=== PATIENT | male | born 1955 | race Caucasian/White ===

== ENCOUNTER → 2018-06-07 07:00 | Outpatient (CLI) | payer OTHER, SELFPAY ==
[2018-06-07 09:05] LABS: Hematocrit 45.2 % (40-54); Hemoglobin 15.9 g/dl (13.0-16.5); Mean Corp Hgb Conc 35.2 g/gl (32-36); Mean Corpuscular Hgb 32.4 pg (27.0-32.0); Mean Corpuscular Volume 92.1 fL (80-94); Mean Platelet Vol. 8.6 fl (6.2-12.0); Platelet Count 314 K/mm3 (150-450); RBC Distribution Width CV 12.6 % (11.6-14.6); RBC Distribution Width SD 42.3 fl (35.1-43.9); Red Blood Count 4.91 M/mm3 (4.6-6.2); White Blood Count 9.1 K/mm3 (4.4-11.0)
[2018-06-07 09:06] LABS: Scan Indicated on CBC? Y/N NO
[2018-06-07 09:24] LABS: Hemoglobin A1c 5.9 % (4.2-6.3)
[2018-06-07 09:34] LABS: Anion Gap 10 (5-15); BUN 22 mg/dL (7-18); Calcium,Total 9.4 mg/dL (8.5-10.1); Chloride 106 mmol/L (98-107); EST Glomerular Filtration Rate 72 mL/min (>60); Est Glom Filt Rate - Afr Amer 88 mL/min (>60); Glucose 145 mg/dL (74-106); Potassium 4.3 mmol/L (3.5-5.1); Sodium Level 139 mmol/L (136-145)
--- OUTSIDE RECORDS SUMMARY | 2018-08-01 18:16 | XMS RPT_ITS ---
:1955 Author Organization OHIP Care Team Providers Name Role Phone HE CASTRO Attending Unavailable MARIO WOLFE Referring Unavailable HE CASTRO Referring Unavailable HE CASTRO Attending Unavailable HE CASTRO Referring Unavailable MARIO WOLFE Referring Unavailable HILDA BROWN (GLORIA) Attending Unavailable MARIO WOLFE Referring Unavailable HILDA BROWN (GLORIA) Referring Unavailable MARIO WOLFE Attending Unavailable MARIO WOLFE Referring Unavailable MARIO WOLFE Attending Unavailable MARIO WOLFE Referring Unavailable MARIO WOLFE Referring Unavailable Atilio Lindsay Attending Unavailable Atilio Lindsay Referring Unavailable Mario Wolfe Primary Care Unavailable Kasie Marcos Attending Unavailable Kasie Marcos Referring Unavailable Mario Wolfe Primary Care Unavailable Atilio Lindsay Attending Unavailable Atilio Lindsay Referring Unavailable Mario Wolfe Primary Care Unavailable PROBLEMS PROBLEMS DATE TYPE CONDITION / CODE ATTENDING STATUS SOURCE 06/10/2018 Active Encounter for other NA Active [facility] Main examination / [place] Z01.818(ICD-10) Repository 06/07/2018 Unknown Z01.810 - Encounter Kasie Marcos Active [facility] for preprocedural [facility] examination / Repository Z01.810(ICD-10) 03/08/2018 Active Encounter for NA Active [facility] screening for Clinic Main malignant neoplasm [place] of prostate / Repository Z12.5(ICD-10) 12/01/2015 Active Type 2 diabetes NA Active [facility] mellitus without Clinic Main complications / [place] E11.9(ICD-10) Repository 11/25/2013 Active Hyperlipidemia, NA Active [facility] unspecified / Clinic Main E78.5(ICD-10) [place] Repository 10/09/2017 Active Unspecified disorder NA Active [facility] of synovium and Clinic Main tendon, left thigh / [place] M67.952(ICD-10) Repository 10/09/2017 Active Unknown / HE CASTRO Active [facility] UNK(Unknown) Clinic Main [place] Repository PROCEDURES PROCEDURES No Procedure Records FoundRESULTS RESULTS TOTAL HIP REPLACEMENT Observed: 06/17/2018 Status: F Source: [place] 9:00 AM [facility] REPOSITORY Patient: SRINI JUNIOR : 1955 (62/M) Acct Num: [id number] Phys: Neftali DEAN,Atilio Unit Num: [id number] Loc: LABSPEC Specimen: [id number] Received: 06/17/181514 Spec Type: TOTAL HIP TISSUES 1 TISSUES: Hip, NOS GROSS DESCRIPTION Received is one container designated bone and soft tissue, left femoral head. The specimen consists of a domingo femoral head with portion of femoral neck. The femoral head measures 4.5 x 4.5 x 4.5 cm and the femoral neck measures up to 2 cm in length. The articular surface displays prominent osteophyte formation, eburnation and bone erosion. Also present in the specimen container are multiple irregular fragments of bone reamings and pink-yellow soft tissue measuring in aggregate 10 x 10 x 4 cm. [employer] Hel[employer] sections are submitted in two cassettes as follows: 1 - soft tissue, 2 - bone after decalcification. / YARITZA: yassine 06/17/18 TC:5 CPT: 62899, 49533 HEADER OPERATION: Left total hip arthroplasty PRE-OP DIAGNOSIS: Primary osteoarthritis left hip TISSUE SUBMITTED: Bone left hip MICROSCOPIC DESCRIPTION Slides are reviewed. MICROSCOPIC DIAGNOSIS Bone and soft tissue of left hip, total hip resection: Degenerative joint disease. Trilineage hematopoiesis with no pathologic change. AM:yassine 12/17/18 Signed Yossi Baird DO 06/23/18 <signature on file> Performed By: #### PHIP #### [facility] [address] [place], [address] CHEST PA AND LATERAL Observed: 06/12/2018 Status: F Source: [place] 5:24 PM [facility] REPOSITORY [facility] [address] [place] [address] Chest PA and Lateral MR#: [id number] Acct: [id number] Name: SRINI JUNIOR Rep #: [id number] : 1955 M 62 From: Castillo Nieto MD PCP: Mario Wolfe MD Status: REG CLI Study: Chest PA and Lateral Date of Exam: 06/12/18 Exam# [id number] Ordering Dr: Atilio Lindsay MD STUDY: X-RAY CHEST REASON FOR EXAM: Male, 62 years old. Preoperative evaluation. TECHNIQUE: PA and lateral views of the chest. COMPARISON: Comparison is made with prior study dated October 09, 2004. FINDINGS: Hyperinflation. Scattered calcified granulomas. No acute abnormality is seen. There is no demonstrated pleural abnormality. Normal size heart. Normal mediastinum and jackson. Normal visualized pulmonary arteries. There is atherosclerotic tortuosity of the aortic arch and descending thoracic aorta. There are diffuse degenerative changes of the visualized thoracic spine. Normal visualized ribs, clavicles, and shoulders. There is no demonstrated abnormality of the visualized soft tissue structures of the upper abdomen. RAD/Chest PA and Lateral IMPRESSION: Hyperinflation. No acute abnormality is seen. Electronically Signed: Castillo Nieto MD at 14:21 EST Tel [phone], Service support , CC: Mario Wolfe MD; Atilio Lindsay MD Long Chain Beamer: Signed PROGRESS Observed: 06/10/2018 Status: COMPLETED Source: [place] 4:00 PM [facility] [place] REPOSITORY HNO ID: [id number] Author: Mario Wolfe Service: (none) Author Type: Physician Type: Progress Notes Filed: 06/10/2018 5:02 PM Note Text: Chief Complaint Patient presents with: Pre-Op Exam: hip replacement HPI Srini Junior is a 62 year old male who presents here today for Above Complaints.. Patient with left hip Arthritis and is scheduled to have left hip replacement per Dr. Lindsay [facility] on 06/17/2018. Patient with Hx of COPD, DM 2, dyslipidemia. Developed a cold sore just under a week ago on the right upper lip. Taking OTC abreva. Past medical history, appointments, medications, allergies reviewed. Previous Medical History PAST MEDICAL HISTORY Diagnosis Date - Anxiety and depression 06/18/2017 - Carpal tunnel syndrome, bilateral 09/08/2014 - COPD (chronic obstructive pulmonary disease) ([facility]) 11/25/2013 - Diabetes ([facility]) - DM type 2 (diabetes mellitus, type 2) ([facility]) 11/26/2013 - Dyslipidemia 11/25/2013 - Elevated fasting blood sugar 11/25/2013 - Lymphoma ([facility]) 11/25/2013 - Pain of left hip joint 09/24/2016 Previous Surgical History PAST SURGICAL HISTORY Procedure Laterality Date - *STRESS TEST PC 02/26/2017 normal. - COLONOSCOP W/ OR W/O [facility] [place] SPEC 06/18/14 colonoscopy - PAST SURGICAL HISTORY OF mass in left lwer leg Dx as lymphoma (Tx with radiation) - TONSILLECTOMY HX Family History FAMILY HISTORY Problem Relation Age of Onset - Alzheimer's Disease Mother - Coronary Artery Disease Father late 60's Patient Allergies ALLERGIES No Known Allergies Current Medications Current Outpatient Prescriptions on File Prior to Visit: sertraline (ZOLOFT) 100 mg tablet Take 1 tablet by mouth once daily. niacin ER (NIASPAN) 1,000 mg CR tablet Take 2 tablets by mouth daily at bedtime. metFORMIN (GLUCOPHAGE) 500 mg tablet Take 2 tablets by mouth twice daily with meals. fenofibrate nanocrystallized (TRICOR) 145 mg tablet Take 1 tablet by mouth once daily. FLOVENT DISKUS 100 mcg/actuation dsdv USE 1 INHALATION INSTRUCTED TWICE DAILY atorvastatin (LIPITOR) 20 mg tablet TAKE 1 TABLET DAILY AT BEDTIME FOR CHOLESTEROL lisinopril (ZESTRIL, PRINIVIL) 10 mg tablet TAKE 1 TABLET DAILY lancets (FREESTYLE LANCETS) 28 gauge misc Test blood sugar once a day, Dx E11.9 no insulin blood sugar diagnostic (FREESTYLE LITE STRIPS) test strip Test blood sugar(s) one times daily. Dx: 250.02. Insulin: No ipratropium-albuterol (COMBIVENT RESPIMAT) 20-100 mcg/actuation mist Inhale 1 Inhalation as instructed three times daily. Prosser-3 Fatty Acids (FISH OIL) 500 mg cap Take 1 capsule by mouth once daily. aspirin 325 mg tablet Take 325 mg by mouth once daily. meloxicam (MOBIC) 15 mg tablet TAKE 1 TABLET DAILY albuterol HFA (PROAIR HFA) 90 mcg/actuation inhaler Inhale 2 Puffs as instructed every 6 hours as needed. COMPOUNDED PRESCRIPTION Wrist cock-up splintsOne for right and left handsDx: Carpal Tunnel (354.0) No current facility-administered medications on file prior to visit. Social History Social History Marital status: Spouse name: Years of education: Number of children: Social History Main Topics Smoking status: Former Smoker Packs/day: 1.50 Years: 0.00 Quit date: 11/05/2006 Smokeless tobacco: Never Used Alcohol use: Yes Comment: seldom Drug use: No Review of Symptoms REVIEW OF SYSTEMS GENERAL: No weight loss, malaise or fevers HEENT: Negative for frequent or significant headaches, significant change in vision, significant vision problems, significant ear problems or hearing loss, nasal discharge, or nose bleeds, sore throat, difficulty swallowing, mouth lesions, hoarseness NECK: Negative for lumps, goiter, pain and significant neck swelling RESPIRATORY: Negative for cough, hemoptysis, wheezing, COPD, dyspnea or shortness of breath CARDIOVASCULAR: Negative for chest pain, leg swelling, hypertension, CHF or palpitations GI: No nausea, vomiting, or diarrhea and no abdominal pain : No history of dysuria, frequency or blood MUSCULOSKELETAL: left hip pain SKIN: See HPI HEMATOLOGY/LYMPHOLOGY: Negative for prolonged bleeding, bruising easily or swollen nodes ENDOCRINE: Negative for cold or heat intolerance, polyuria, polydipsia and goiter NEURO: No history of headaches, syncope, paralysis, seizures or tremors EXAM: BP 122/76 Pulse 68 Resp 16 Wt 111.1 kg (245 lb) BMI 38.37 kg/m? General Appearance: Well appearing, alert, in no acute distress, well-hydrated, well nourished. and Obese. Skin: Skin color, texture, turgor normal, no suspicious lesions. Has a cold sore out break on the right upper lip. Head: Normocephalic, no masses, lesions, tenderness or abnormalities. Eyes: Anicteric sclera. Pupils are equally round and reactive to light. Extraocular movements are intact. . Ears: External ears normal, canals clear. Nose/Sinuses: Nares normal, septum midline, mucosa normal, no drainage or sinus tenderness. Oropharynx: Lips, mucosa, and tongue normal, teeth and gums normal, oropharynx normal. Neck: Supple, no adenopathy; thyroid symmetric, normal size, no bruits. Lungs: lungs clear to auscultation. No wheezing, rhonchi, rales. Heart: RRR without murmur, gallop, or rubs. No ectopy. Abdomen: Normal abdominal exam, Abdomen soft, non-tender. Bowel sounds normal. No masses, organomegaly. Extremities: No deformities, edema, skin discoloration. Musculoskeletal: Muscular strength intact. Has notable limp with ambulating due to left hip pain.. Peripheral Pulses: Normal. Neurologic: Gait normal. Reflexes normal and symmetric. Sensation to light touch and crainal nerves 2-12 intact.. Health Maintenance List STATIN MED ADHERENCE due on 07/08/2018 DIABETES MED ADHERENCE due on 07/08/2018 HBA1C due on 09/05/2018 TWO PNEUMOVAX 5 YEARS APART PRIOR TO AGE 65(2) due on 12/14/2018 URINE ALBUMIN:CREATININE RATIO due on 03/08/2019 LDL CHOLESTEROL due on 03/08/2019 DIABETIC FOOT EXAM due on 03/12/2019 ANNUAL PCP TEAM CHRONIC DISEASE VISIT due on 03/12/2019 DILATED RETINAL EXAM due on 03/24/2019 DTAP,TDAP,TD(2 - Td) due on 11/26/2023 COLORECTAL CANCER SCREENING,SEE MODIFIER due on 06/18/2024 PROSTATE CANCER SCREENING DISCUSSION Completed ADULT PREVNAR-13 Completed INFLUENZA Completed HEPATITIS C SCREENING Completed Data reviewed In office EKG showed Sinus tach (repeat pulse in office was 98 patient in pain with right hip) No acute ST and T wave changes and no new findings when compared to EKG from 02/18/2017 A/P ASSESSMENT/PLAN: 1. Pre-operative clearance - ICD9: V72.84, ICD10: Z01.818 (primary diagnosis) - ECG COMPLETE W INTERPRETATION: See above Patient procedure is a moderate risk procedure. His cardiac risk index is low at 0.4% and EKG shows no acute issues. Based on this and the Pre-operative Clearance Algorithm he does not need additional cardiac w/u and is cleared for surgery on 06/17/2018 2. Pain of left hip joint - ICD9: 719.45, ICD10: M25.552 - Scheduled for surgery 06/17/[address] Neftali Tian. Will fax Medical clearance and copy of EKG to there office. 3. Type 2 diabetes mellitus without complication, without long-term current use of insulin (HCC) - ICD9: 250.00, ICD10: E11.9 - No changes in current Tx. - ECG COMPLETE W INTERPRETATION 4. Dyslipidemia - ICD9: 272.4, ICD10: E78.5 - No new changes. 5. Herpes - ICD9: 054.9, ICD10: B00.9 Treat with - ACYCLOVIR 400 MG TABLET three times a day for 5 days Signed Prescriptions Disp Refills acyclovir (ZOVIRAX) 400 mg tablet 15 tablet 0 Sig: Take 1 tablet by mouth three times daily for 5 days. F/u next routine Mario Wolfe MD ECG COMPLETE W Observed: 06/10/2018 Status: F Source: [place] INTERPRETATION 3:48 PM [facility] [place] REPOSITORY NAME : SRINI JUNIOR PID : [id number] : 1955 Gender : Male Race : ORD : [id number] Procedure Date : Jun 10 2018 15:48:46 Edit Date : Jun 14 2018 12:57:43 Diagnosis:SINUS TACHYCARDIA OTHERWISE NORMAL ECG Confirmed by MARI ALDANA D.O. ([id number]) on 06/14/2018 12:57:33 PM Ventricular Rate : 106 BPM Atrial Rate : 106 BPM P-R Interval : 154 ms QRS Duration : 92 ms Q-T Interval : 328 ms QTC Calculation(Bezet) : 435 ms P [place] : 37 degrees R [place] : 5 degrees T [place] : 40 degrees Test Reason : Location : 185 : [facility] Overread By : MARI ALDANA D.O. Edited By : MARI ALDANA D.O. Referred By : MARIO WOLFE Acquired by : NEREIDA ARTEAGA Observed: 06/10/2018 Status: COMPLETED Source: [place] 3:40 PM [facility] REPOSITORY Office Visit (FAMPWS) SRINI JUNIOR ([id number]) 1955 M Date Time Provider Department 06/10/18 3:40 PM [facility] During your visit today, we recorded the following information about you: Pulse Respiration Blood pressure Weight 68/minute 16/minute 122/76 111.1 kg Mario Wolfe MD 06/10/2018 5:02 PM Signed Chief Complaint Patient presents with: Pre-Op Exam: hip replacement HPI Srini Junior is a 62 year old male who presents here today for Above Complaints.. Patient with left hip Arthritis and is scheduled to have left hip replacement per Dr. [facility] on 06/17/2018. Patient with Hx of COPD, DM 2, dyslipidemia. Developed a cold sore just under a week ago on the right upper lip. Taking OTC abreva. Past medical history, appointments, medications, allergies reviewed. Previous Medical History PAST MEDICAL HISTORY Diagnosis Date - Anxiety and depression 06/18/2017 - Carpal tunnel syndrome, bilateral 09/08/2014 - COPD (chronic obstructive pulmonary disease) ([facility]) 11/25/2013 - Diabetes ([facility]) - DM type 2 (diabetes mellitus, type 2) ([facility]) 11/26/2013 - Dyslipidemia 11/25/2013 - Elevated fasting blood sugar 11/25/2013 - Lymphoma ([facility]) 11/25/2013 - Pain of left hip joint 09/24/2016 Previous Surgical History PAST SURGICAL HISTORY Procedure Laterality Date - *STRESS TEST PC 02/26/2017 normal. - COLONOSCOP W/ OR W/O [facility] SPEC 06/18/14 colonoscopy - PAST SURGICAL HISTORY OF mass in left lwer leg Dx as lymphoma (Tx with radiation) - TONSILLECTOMY HX Family History FAMILY HISTORY Problem Relation Age of Onset - Alzheimer's Disease Mother - Coronary Artery Disease Father late 60's Patient Allergies ALLERGIES No Known Allergies Current Medications Current Outpatient Prescriptions on File Prior to Visit: sertraline (ZOLOFT) 100 mg tablet Take 1 tablet by mouth once daily. niacin ER (NIASPAN) 1,000 mg CR tablet Take 2 tablets by mouth daily at bedtime. metFORMIN (GLUCOPHAGE) 500 mg tablet Take 2 tablets by mouth twice daily with meals. fenofibrate nanocrystallized (TRICOR) 145 mg tablet Take 1 tablet by mouth once daily. FLOVENT DISKUS 100 mcg/actuation dsdv USE 1 INHALATION INSTRUCTED TWICE DAILY atorvastatin (LIPITOR) 20 mg tablet TAKE 1 TABLET DAILY AT BEDTIME FOR CHOLESTEROL lisinopril (ZESTRIL, PRINIVIL) 10 mg tablet TAKE 1 TABLET DAILY lancets (FREESTYLE LANCETS) 28 gauge misc Test blood sugar once a day, Dx E11.9 no insulin blood sugar diagnostic (FREESTYLE LITE STRIPS) test strip Test blood sugar(s) one times daily. Dx: 250.02. Insulin: No ipratropium-albuterol (COMBIVENT RESPIMAT) 20-100 mcg/actuation mist Inhale 1 Inhalation as instructed three times daily. Prosser-3 Fatty Acids (FISH OIL) 500 mg cap Take 1 capsule by mouth once daily. aspirin 325 mg tablet Take 325 mg by mouth once daily. meloxicam (MOBIC) 15 mg tablet TAKE 1 TABLET DAILY albuterol HFA (PROAIR HFA) 90 mcg/actuation inhaler Inhale 2 Puffs as instructed every 6 hours as needed. COMPOUNDED PRESCRIPTION Wrist cock-up splintsOne for right and left handsDx: Carpal Tunnel (354.0) No current facility-administered medications on file prior to visit. Social History Social History Marital status: Spouse name: Years of education: Number of children: Social History Main Topics Smoking status: Former Smoker Packs/day: 1.50 Years: 0.00 Quit date: 11/05/2006 Smokeless tobacco: Never Used Alcohol use: Yes Comment: seldom Drug use: No Review of Symptoms REVIEW OF SYSTEMS GENERAL: No weight loss, malaise or fevers HEENT: Negative for frequent or significant headaches, significant change in vision, significant vision problems, significant ear problems or hearing loss, nasal discharge, or nose bleeds, sore throat, difficulty swallowing, mouth lesions, hoarseness NECK: Negative for lumps, goiter, pain and significant neck swelling RESPIRATORY: Negative for cough, hemoptysis, wheezing, COPD, dyspnea or shortness of breath CARDIOVASCULAR: Negative for chest pain, leg swelling, hypertension, CHF or palpitations GI: No nausea, vomiting, or diarrhea and no abdominal pain : No history of dysuria, frequency or blood MUSCULOSKELETAL: left hip pain SKIN: See HPI HEMATOLOGY/LYMPHOLOGY: Negative for prolonged bleeding, bruising easily or swollen nodes ENDOCRINE: Negative for cold or heat intolerance, polyuria, polydipsia and goiter NEURO: No history of headaches, syncope, paralysis, seizures or tremors EXAM: BP 122/76 Pulse 68 Resp 16 Wt 111.1 kg (245 lb) BMI 38.37 kg/m? General Appearance: Well appearing, alert, in no acute distress, well-hydrated, well nourished. and Obese. Skin: Skin color, texture, turgor normal, no suspicious lesions. Has a cold sore out break on the right upper lip. Head: Normocephalic, no masses, lesions, tenderness or abnormalities. Eyes: Anicteric sclera. Pupils are equally round and reactive to light. Extraocular movements are intact. . Ears: External ears normal, canals clear. Nose/Sinuses: Nares normal, septum midline, mucosa normal, no drainage or sinus tenderness. Oropharynx: Lips, mucosa, and tongue normal, teeth and gums normal, oropharynx normal. Neck: Supple, no adenopathy; thyroid symmetric, normal size, no bruits. Lungs: lungs clear to auscultation. No wheezing, rhonchi, rales. Heart: RRR without murmur, gallop, or rubs. No ectopy. Abdomen: Normal abdominal exam, Abdomen soft, non-tender. Bowel sounds normal. No masses, organomegaly. Extremities: No deformities, edema, skin discoloration. Musculoskeletal: Muscular strength intact. Has notable limp with ambulating due to left hip pain.. Peripheral Pulses: Normal. Neurologic: Gait normal. Reflexes normal and symmetric. Sensation to light touch and crainal nerves 2-12 intact.. Health Maintenance List STATIN MED ADHERENCE due on 07/08/2018 DIABETES MED ADHERENCE due on 07/08/2018 HBA1C due on 09/05/2018 TWO PNEUMOVAX 5 YEARS APART PRIOR TO AGE 65(2) due on 12/14/2018 URINE ALBUMIN:CREATININE RATIO due on 03/08/2019 LDL CHOLESTEROL due on 03/08/2019 DIABETIC FOOT EXAM due on 03/12/2019 ANNUAL PCP TEAM CHRONIC DISEASE VISIT due on 03/12/2019 DILATED RETINAL EXAM due on 03/24/2019 DTAP,TDAP,TD(2 - Td) due on 11/26/2023 COLORECTAL CANCER SCREENING,SEE MODIFIER due on 06/18/2024 PROSTATE CANCER SCREENING DISCUSSION Completed ADULT PREVNAR-13 Completed INFLUENZA Completed HEPATITIS C SCREENING Completed Data reviewed In office EKG showed Sinus tach (repeat pulse in office was 98 patient in pain with right hip) No acute ST and T wave changes and no new findings when compared to EKG from 02/18/2017 A/P ASSESSMENT/PLAN: 1. Pre-operative clearance - ICD9: V72.84, ICD10: Z01.818 (primary diagnosis) - ECG COMPLETE W INTERPRETATION: See above Patient procedure is a moderate risk procedure. His cardiac risk index is low at 0.4% and EKG shows no acute issues. Based on this and the Pre-operative Clearance Algorithm he does not need additional cardiac w/u and is cleared for surgery on 06/17/2018 2. Pain of left hip joint - ICD9: 719.45, ICD10: M25.552 - Scheduled for surgery 06/17/[address] Neftali Tian. Will fax Medical clearance and copy of EKG to there office. 3. Type 2 diabetes mellitus without complication, without long-term current use of insulin (HCC) - ICD9: 250.00, ICD10: E11.9 - No changes in current Tx. - ECG COMPLETE W INTERPRETATION 4. Dyslipidemia - ICD9: 272.4, ICD10: E78.5 - No new changes. 5. Herpes - ICD9: 054.9, ICD10: B00.9 Treat with - ACYCLOVIR 400 MG TABLET three times a day for 5 days Signed Prescriptions Disp Refills acyclovir (ZOVIRAX) 400 mg tablet 15 tablet 0 Sig: Take 1 tablet by mouth three times daily for 5 days. F/u next routine Mario Wolfe MD Referring Provider: MARIO WOLFE [[id number]] Allergies As of Date: 06/10/2018 (No Known Allergies) Date Reviewed: 06/10/2018 Reviewed by: Mario Wolfe - Fully Assessed Reason for Visit: Pre-Op Exam [87] Cmt: hip replacement Primary Visit Diagnosis:Pre-operative clearance [Z01.818] Other Visit Diagnoses:Pain of left hip joint [M25.552] Type 2 diabetes mellitus without complication, without long-term current use of insulin (HCC) [E11.9] Dyslipidemia [E78.5] Herpes [B00.9] Order(s):ECG COMPLETE W INTERPRETATION [ECG01] Order #: [id number] FUTURE acyclovir (ZOVIRAX) 400 mg tabletTake 1 tablet by mouth three times daily for 5 days.Disp: 15 tabletRfl: 0 Prescriptions as of 06/10/2018 Sig: SERTRALINE 100 MG TABLET Take 1 tablet by mouth once d* NIACIN ER 1,000 MG TABLET,EXT* Take 2 tablets by mouth daily* METFORMIN 500 MG TABLET Take 2 tablets by mouth twice* FENOFIBRATE NANOCRYSTALLIZED * Take 1 tablet by mouth once d* FLOVENT DISKUS 100 MCG/ACTUAT* USE 1 INHALATION INSTRUCTE* ATORVASTATIN 20 MG TABLET TAKE 1 TABLET DAILY AT BEDTIM* LISINOPRIL 10 MG TABLET TAKE 1 TABLET DAILY LANCETS 28 GAUGE Test blood sugar once a day, * BLOOD SUGAR DIAGNOSTIC STRIPS Test blood sugar(s) one times* IPRATROPIUM 20 MCG-ALBUTEROL * Inhale 1 Inhalation as instru* OMEGA-3 FATTY ACIDS 500 MG CA* Take 1 capsule by mouth once * ASPIRIN 325 MG TABLET Take 325 mg by mouth once julian* ACYCLOVIR 400 MG TABLET Take 1 tablet by mouth three * MELOXICAM 15 MG TABLET TAKE 1 TABLET DAILY ALBUTEROL SULFATE HFA 90 MCG/* Inhale 2 Puffs as instructed * COMPOUNDED PRESCRIPTION Wrist cock-up splints One * Problem List As Of Date 06/10/2018 Noted Resolved Dyslipidemia [E78.5] INVALID FOR* Diabetic eye exam (HCC) [Z01.00, E11.9] INVALID FOR* More... Well adult exam [Z00.00] INVALID FOR* More... Special screening for malignant neoplasms, colo*INVALID FOR*06/18/2014 Deviated nasal septum [J34.2] INVALID FOR* Carpal tunnel syndrome, bilateral [G56.03] INVALID FOR* Prostate cancer screening [Z12.5] INVALID FOR* Colon cancer screening [Z12.11] INVALID FOR* Type 2 diabetes mellitus without complication, *INVALID FOR* More... Elevated blood pressure reading without diagnos*INVALID FOR* Chronic obstructive pulmonary disease (HCC) [J4*INVALID FOR* Pain of left hip joint [M25.552] INVALID FOR* Ex-smoker [Z87.891] INVALID FOR* More... MCL (mantle cell lymphoma) (HCC) [C83.10] INVALID FOR* More... Anxiety and depression [F41.9, F32.9] INVALID FOR* Herpes [B00.9] INVALID FOR* More... Prescriptions ordered this encounter Disp Refills Start End ACYCLOVIR 400 MG TABLET 15 t* 0 06/10/2018 06/15/2018 Route: ORAL Sig: Take 1 tablet by mouth three times daily for 5 days. Disposition: Return if symptoms worsen or fail to improve. Follow-up and Disposition History Recorded Encounter Status:Closed by MARIO WOLFE on 06/10/18 CBC-COMPLETE BLOOD CNT Collected: 06/07/2018 Status: F Source: [facility] NO DIFF 7:10 AM [facility] REPOSITORY TYPE CODE TESTS RESULT OUT OF RANGE REFERENCE UNITS LAB L100.1000 4.4-11.0 K/mm3 Normal WBC 9.1 LAB L100.1200 4.6-6.2 M/mm3 Normal RBC 4.91 LAB L100.1300 13.0-16.5 g/dl Normal HGB 15.9 LAB L100.1400 40-54 % Normal HCT 45.2 LAB L100.1500 80-94 fL Normal MCV 92.1 LAB L100.1600 27.0-32.0 pg High MCH 32.4 LAB L100.1700 32-36 g/gl Normal MCHC 35.2 LAB L100.1810 11.6-14.6 % Normal RDW CV 12.6 LAB L100.1820 35.1-43.9 fl Normal RDW SD 42.3 LAB L100.1900 150-450 K/mm3 Normal PLT 314 LAB L100.2000 6.2-12.0 fl Normal MPV 8.6 Performed By: #### L100.0500 #### [facility] [address] [place], [address] HEMOGLOBIN A1C Collected: 06/07/2018 Status: F Source: [facility] 7:10 AM [facility] REPOSITORY TYPE CODE TESTS RESULT OUT OF RANGE REFERENCE UNITS LAB L501.9985 4.2-6.3 % Normal HGB A1C 5.9 Performed By: #### L501.9985 #### [facility] [address] [place], [address] BASIC METABOLIC Collected: 06/07/2018 Status: F Source: [facility] PROFILE (BMP) 7:10 AM [facility] REPOSITORY TYPE CODE TESTS RESULT OUT OF RANGE REFERENCE UNITS LAB L501.0100 74-106 mg/dL High GLU 145 Result Comment: Fasting Glucose result greater than or equal to 126 mg/dL suggests DIABETES MELLITUS per A.D.A. criteria. Please note revised GLUCOSE reference range effective 2017. LAB L501.1000 7-18 mg/dL High BUN 22 LAB L501.1100 0.70-1.30 mg/dL Normal CREAT,SERUM 1.10 Result Comment: The validity of the calculated GFR AND GFRAA in patients over 70 years has not been determined. Clinical correlation is essential. LAB L501.1110 >60 mL/min Normal EST GFR 72 Result Comment: Non- GFR Calc LAB L501.1115 >60 mL/min Normal EST GFR - AA 88 Result Comment: GFR Calc LAB L501.1300 10-20 RATIO Normal BUN/CRE 20.0 LAB L501.2200 8.5-10.1 mg/dL CA Normal 9.4 LAB L501.5300 136-145 mmol/L NA Normal 139 LAB L501.5600 3.5-5.1 mmol/L K Normal 4.3 LAB L501.5900 98-107 mmol/L CL Normal 106 LAB L501.6100 21.0-32.0 mmol/L Normal CO2 23.0 LAB L501.6200 5-15 Normal GAP 10 Performed By: #### L500.2500 #### [facility] [address] [place], [address] PROGRESS Observed: 03/12/2018 Status: COMPLETED Source: [place] 3:08 PM [facility] [place] REPOSITORY HNO ID: [id number] Author: Mario Wolfe Service: (none) Author Type: Physician Type: Progress Notes Filed: 03/12/2018 9:07 PM Note Text: Chief Complaint Patient presents with: Physical: 6 months HPI Srini Junior is a 62 year old male who presents here today for WAE and routine Patient with Hx of Dyslipidemia, COPD, DM type 2, anxiety, depression, hip arthritis as well as those reviewed and addressed below. Will be having a left hip replacement 06/17/[address] Lindsay with [facility] Past medical history, appointments, medications, allergies reviewed. Previous Medical History PAST MEDICAL HISTORY Diagnosis Date - Anxiety and depression 06/18/2017 - Carpal tunnel syndrome, bilateral 09/08/2014 - COPD (chronic obstructive pulmonary disease) ([facility]) 11/25/2013 - Diabetes ([facility]) - DM type 2 (diabetes mellitus, type 2) ([facility]) 11/26/2013 - Dyslipidemia 11/25/2013 - Elevated fasting blood sugar 11/25/2013 - Lymphoma ([facility]) 11/25/2013 - Pain of left hip joint 09/24/2016 Previous Surgical History PAST SURGICAL HISTORY Procedure Laterality Date - *STRESS TEST PC 02/26/2017 normal. - COLONOSCOP W/ OR W/O BRSH SPEC 06/18/14 colonoscopy - PAST SURGICAL HISTORY OF mass in left lwer leg Dx as lymphoma (Tx with radiation) - TONSILLECTOMY HX Family History FAMILY HISTORY Problem Relation Age of Onset - Alzheimer's Disease Mother - Coronary Artery Disease Father late 60's Patient Allergies ALLERGIES No Known Allergies Current Medications Current Outpatient Prescriptions on File Prior to Visit: meloxicam (MOBIC) 15 mg tablet TAKE 1 TABLET DAILY FLOVENT DISKUS 100 mcg/actuation dsdv USE 1 INHALATION INSTRUCTED TWICE DAILY atorvastatin (LIPITOR) 20 mg tablet TAKE 1 TABLET DAILY AT BEDTIME FOR CHOLESTEROL lisinopril (ZESTRIL, PRINIVIL) 10 mg tablet TAKE 1 TABLET DAILY lancets (FREESTYLE LANCETS) 28 gauge misc Test blood sugar once a day, Dx E11.9 no insulin blood sugar diagnostic (FREESTYLE LITE STRIPS) test strip Test blood sugar(s) one times daily. Dx: 250.02. Insulin: No ipratropium-albuterol (COMBIVENT RESPIMAT) 20-100 mcg/actuation mist Inhale 1 Inhalation as instructed three times daily. fenofibrate nanocrystallized (TRICOR) 145 mg tablet Take 1 tablet by mouth once daily. metFORMIN (GLUCOPHAGE) 500 mg tablet Take 2 tablets by mouth twice daily with meals. sertraline (ZOLOFT) 100 mg tablet Take 1 tablet by mouth once daily. albuterol HFA (PROAIR HFA) 90 mcg/actuation inhaler Inhale 2 Puffs as instructed every 6 hours as needed. niacin ER (NIASPAN) 1,000 mg CR tablet Take 2 tablets by mouth daily at bedtime. Prosser-3 Fatty Acids (FISH OIL) 500 mg cap Take 1 capsule by mouth once daily. COMPOUNDED PRESCRIPTION Wrist cock-up splintsOne for right and left handsDx: Carpal Tunnel (354.0) aspirin 325 mg tablet Take 325 mg by mouth once daily. No current facility-administered medications on file prior to visit. Social History Social History Marital status: Spouse name: Years of education: Number of children: Social History Main Topics Smoking status: Former Smoker Packs/day: 1.50 Years: 0.00 Quit date: 11/05/2006 Smokeless tobacco: Never Used Alcohol use: Yes Comment: seldom Drug use: No Review of Symptoms REVIEW OF SYSTEMS GENERAL: No weight loss, malaise or fevers HEENT: Negative for frequent or significant headaches, significant change in vision, significant vision problems, significant ear problems or hearing loss, nasal discharge, or nose bleeds, sore throat, difficulty swallowing, mouth lesions, hoarseness NECK: Negative for lumps, goiter, pain and significant neck swelling RESPIRATORY: Negative for hemoptysis, wheezing, COPD, dyspnea or shortness of breath. Has been having a cough with yellow mucus off and on for about 6 months. CARDIOVASCULAR: Negative for chest pain, leg swelling, hypertension, CHF or palpitations GI: No nausea, vomiting, or diarrhea, No heartburn or reflux symptoms and no blood : No history of dysuria or blood. Some frequency at times. Up once a nigh. MUSCULOSKELETAL: left hip pain SKIN: Negative for lesions, rash, and itching PSYCH: Negative for sleep disturbance, mood disorder and recent psychosocial stressors. Doing ok with Zoloft. HEMATOLOGY/LYMPHOLOGY: Negative for prolonged bleeding, bruising easily or swollen nodes ENDOCRINE: Negative for cold or heat intolerance or symptoms of low BS's. FBS: 174 this AM NEURO: No history of headaches, syncope, paralysis, seizures or tremors and no symptoms of neuropathy. EXAM: BP 142/72 Pulse 88 Resp 12 Ht 170.2 cm (5' 7) Wt 109.3 kg (241 lb) BMI 37.75 kg/m? General Appearance: Well appearing, alert, in no acute distress, well-hydrated, well nourished.. Skin: Skin color, texture, turgor normal, no suspicious rashes or lesions. Head: Normocephalic, no masses, lesions, tenderness or abnormalities. Eyes: Anicteric sclera. Pupils are equally round and reactive to light. Extraocular movements are intact. . Ears: External ears normal, canals clear. Nose/Sinuses: Nares normal, septum midline, mucosa normal, no drainage or sinus tenderness. Oropharynx: Lips, mucosa, and tongue normal, teeth and gums normal, oropharynx normal. Neck: Supple, no adenopathy; thyroid symmetric, normal size, no bruits. Lungs: Lungs clear to auscultation. No wheezing, rhonchi, rales. Heart: RRR without murmur, gallop, or rubs. No ectopy. Abdomen: Normal abdominal exam, Abdomen soft, non-tender. Bowel sounds normal. No masses, organomegaly. Extremities: No deformities, edema, Musculoskeletal: No joint swelling, deformity, or tenderness. Muscle strength was normal. Peripheral Pulses: Normal. Neurologic: Gait normal. Reflexes normal and symmetric. Sensation to light touch and crainal nerves 2-12 intact.. Genitalia: Normal, Penis normal. No urethral discharge. Scrotum normal to palpation. No hernia.. Rectal: Normal exam. Prostate enlarged slightly with smooth firm capsule Feet: Shoes and socks removed, No deformities, ulcers, calluses, normal distal pulses, sensitive to 10 gm monofilament and vibratory perception normal Health Maintenance List DILATED RETINAL EXAM due on 02/26/2018 INFLUENZA(1) due on 03/08/2018 STATIN MED ADHERENCE due on 04/07/2018 DIABETES MED ADHERENCE due on 04/07/2018 DIABETIC FOOT EXAM due on 06/18/2018 HBA1C due on 09/05/2018 TWO PNEUMOVAX 5 YEARS APART PRIOR TO AGE 65(2) due on 12/14/2018 ANNUAL PCP TEAM CHRONIC DISEASE VISIT due on 12/23/2018 URINE ALBUMIN:CREATININE RATIO due on 03/08/2019 LDL CHOLESTEROL due on 03/08/2019 DTAP,TDAP,TD(2 - Td) due on 11/26/2023 COLORECTAL CANCER SCREENING,SEE MODIFIER due on 06/18/2024 PROSTATE CANCER SCREENING DISCUSSION Completed ADULT PREVNAR-13 Completed HEPATITIS C SCREENING Completed Data reviewed Component Latest Ref Rng AND Units 12/14/2017 03/08/2018 Color Yellow Yellow Clarity Clear Clear Glucose, Urine Negative mg/dL Negative Bilirubin, Urine Negative Negative Ketones, Urine Negative Negative Specific [place], Ur 1.005 - 1.030 1.027 Hemoglobin/Blood,Ur Negative Negative pH, Urine 4.5 - 8.0 5.0 Protein, Urine Negative mg/dL Negative Urobilinogen Normal Normal Nitrites Negative Negative Leukest Negative Negative Comments SEE COMMENT Urine Carlos Comment SEE COMMENT WBC, Urine 0 - 5 /HPF 0-5 RBC, Urine 0 - 3 /HPF 0-3 Epithelial Cells /HPF SEE COMMENT Crystal 0 /HPF SEE COMMENT (A) Protein, Total 6.3 - 8.0 g/dL 7.1 Albumin 3.9 - 4.9 g/dL 4.4 Calcium 8.5 - 10.2 mg/dL 9.6 Bilirubin, Total 0.2 - 1.3 mg/dL 0.4 Alkaline Phosphatase 36 - 108 U/L 37 AST 14 - 40 U/L 28 Glucose 74 - 99 mg/dL 152 (H) BUN 9 - 24 mg/dL 18 Creatinine 0.73 - 1.22 mg/dL 0.99 Sodium 136 - 144 mmol/L 139 Potassium 3.7 - 5.1 mmol/L 4.5 Chloride 97 - 105 mmol/L 105 CO2 22 - 30 mmol/L 18 (L) Anion Gap 9 - 18 mmol/L 16 ALT 10 - 54 U/L 33 eGFR- >60 eGFR-All Other Races . >60 Cholesterol, Total <200 mg/dL 151 154 Triglyceride <150 mg/dL 193 (H) 156 (H) HDL Cholesterol >39 mg/dL 41 33 (L) LDL Cholesterol <100 mg/dL 71 90 Non HDL Cholesterol <130 mg/dL 110 121 Fasting Time hrs 12 12 VLDL Cholesterol <30 mg/dL 39 (H) 31 (H) TC:HDL Ratio <5.10 3.68 4.67 LDL:HDL Ratio <2.54 1.73 2.73 (H) Creatinine, Ur Random (UCRR) 20 - 300 mg/dL 205.4 Albumin, Urine Random 0.0 - 23.0 mg/L <12.0 Albumin/Creat Ratio 0 - 30 mg/g Not calculated Hemoglobin A1C 4.3 - 5.6 % 5.9 (H) 5.6 Estimated Average Glucose mg/dL 123 114 PSA 0.00 - 2.59 ng/mL 1.99 A/P ASSESSMENT/PLAN: 1. Well adult exam - ICD9: V70.0, ICD10: Z00.00 (primary diagnosis) - Completed Digital Rectal exam - Recommended regular aerobic exercise. - Follow up for annual exam in one year. 2. Type 2 diabetes mellitus without complication, without long-term current use of insulin (HCC) - ICD9: 250.00, ICD10: E11.9 Controlled. - Continue current medications - Daily Asprin therapy recommended - BP goal of <130/80 - LDL goal of <100 3. Diabetic eye exam (HCC) - ICD9: V72.0, 250.00, ICD10: Z01.00, E11.9 - patient advised he needs to get for this year. 4. Dyslipidemia - ICD9: 272.4, ICD10: E78.5 - good control - Encouraged following a low fat, low cholesterol diet. - Discussed the benefits of regular aerobic exercise and weight loss. - Encouraged following a low carbohydrate, healthy oil intake diet. - Continue current therapy. 5. Chronic obstructive pulmonary disease, unspecified COPD type (HCC) - ICD9: 496, ICD10: J44.9 - Clinically stable and no change in treatment needed. 6. Anxiety and depression - ICD9: 300.00, 311, ICD10: F41.9, F32.9 - Stable with zoloft no changes. 7. Pain of left hip joint - ICD9: 719.45, ICD10: M25.552 - Patient to have MICHAEL 06/17/2018 and will need pre op clearance. Signed Prescriptions Disp Refills sertraline (ZOLOFT) 100 mg tablet 90 tablet 1 Sig: Take 1 tablet by mouth once daily. ARTHUR: No niacin ER (NIASPAN) 1,000 mg CR tablet 180 tablet 3 Sig: Take 2 tablets by mouth daily at bedtime. ARTHUR: No metFORMIN (GLUCOPHAGE) 500 mg tablet 360 tablet 1 Sig: Take 2 tablets by mouth twice daily with meals. ARTHUR: No fenofibrate nanocrystallized (TRICOR) 145 mg tablet 90 tablet 1 Sig: Take 1 tablet by mouth once daily. ARTHUR: No F/u 6 months routine check A1c and FLP prior. Mario Wolfe MD CNOV Observed: 03/12/2018 Status: COMPLETED Source: [place] 2:00 PM [facility] REPOSITORY Office Visit (FAMPWS) KARLEESRINI BYRD ([id number]) 1955 M Date Time Provider Department 03/12/18 2:00 PM [facility] During your visit today, we recorded the following information about you: Pulse Respiration Blood pressure Weight 88/minute 12/minute 142/72 109.3 kg Height 1.702 m Mario Wolfe MD 03/12/2018 9:07 PM Signed Chief Complaint Patient presents with: Physical: 6 months HPI Srini Junior is a 62 year old male who presents here today for WAE and routine Patient with Hx of Dyslipidemia, COPD, DM type 2, anxiety, depression, hip arthritis as well as those reviewed and addressed below. Will be having a left hip replacement 06/17/[address] Lindsay with [facility] Past medical history, appointments, medications, allergies reviewed. Previous Medical History PAST MEDICAL HISTORY Diagnosis Date - Anxiety and depression 06/18/2017 - Carpal tunnel syndrome, bilateral 09/08/2014 - COPD (chronic obstructive pulmonary disease) ([facility]) 11/25/2013 - Diabetes ([facility]) - DM type 2 (diabetes mellitus, type 2) ([facility]) 11/26/2013 - Dyslipidemia 11/25/2013 - Elevated fasting blood sugar 11/25/2013 - Lymphoma ([facility]) 11/25/2013 - Pain of left hip joint 09/24/2016 Previous Surgical History PAST SURGICAL HISTORY Procedure Laterality Date - *STRESS TEST PC 02/26/2017 normal. - COLONOSCOP W/ OR W/O BRSH SPEC 06/18/14 colonoscopy - PAST SURGICAL HISTORY OF mass in left lwer leg Dx as lymphoma (Tx with radiation) - TONSILLECTOMY HX Family History FAMILY HISTORY Problem Relation Age of Onset - Alzheimer's Disease Mother - Coronary Artery Disease Father late 60's Patient Allergies ALLERGIES No Known Allergies Current Medications Current Outpatient Prescriptions on File Prior to Visit: meloxicam (MOBIC) 15 mg tablet TAKE 1 TABLET DAILY FLOVENT DISKUS 100 mcg/actuation dsdv USE 1 INHALATION INSTRUCTED TWICE DAILY atorvastatin (LIPITOR) 20 mg tablet TAKE 1 TABLET DAILY AT BEDTIME FOR CHOLESTEROL lisinopril (ZESTRIL, PRINIVIL) 10 mg tablet TAKE 1 TABLET DAILY lancets (FREESTYLE LANCETS) 28 gauge misc Test blood sugar once a day, Dx E11.9 no insulin blood sugar diagnostic (FREESTYLE LITE STRIPS) test strip Test blood sugar(s) one times daily. Dx: 250.02. Insulin: No ipratropium-albuterol (COMBIVENT RESPIMAT) 20-100 mcg/actuation mist Inhale 1 Inhalation as instructed three times daily. fenofibrate nanocrystallized (TRICOR) 145 mg tablet Take 1 tablet by mouth once daily. metFORMIN (GLUCOPHAGE) 500 mg tablet Take 2 tablets by mouth twice daily with meals. sertraline (ZOLOFT) 100 mg tablet Take 1 tablet by mouth once daily. albuterol HFA (PROAIR HFA) 90 mcg/actuation inhaler Inhale 2 Puffs as instructed every 6 hours as needed. niacin ER (NIASPAN) 1,000 mg CR tablet Take 2 tablets by mouth daily at bedtime. Prosser-3 Fatty Acids (FISH OIL) 500 mg cap Take 1 capsule by mouth once daily. COMPOUNDED PRESCRIPTION Wrist cock-up splintsOne for right and left handsDx: Carpal Tunnel (354.0) aspirin 325 mg tablet Take 325 mg by mouth once daily. No current facility-administered medications on file prior to visit. Social History Social History Marital status: Spouse name: Years of education: Number of children: Social History Main Topics Smoking status: Former Smoker Packs/day: 1.50 Years: 0.00 Quit date: 11/05/2006 Smokeless tobacco: Never Used Alcohol use: Yes Comment: seldom Drug use: No Review of Symptoms REVIEW OF SYSTEMS GENERAL: No weight loss, malaise or fevers HEENT: Negative for frequent or significant headaches, significant change in vision, significant vision problems, significant ear problems or hearing loss, nasal discharge, or nose bleeds, sore throat, difficulty swallowing, mouth lesions, hoarseness NECK: Negative for lumps, goiter, pain and significant neck swelling RESPIRATORY: Negative for hemoptysis, wheezing, COPD, dyspnea or shortness of breath. Has been having a cough with yellow mucus off and on for about 6 months. CARDIOVASCULAR: Negative for chest pain, leg swelling, hypertension, CHF or palpitations GI: No nausea, vomiting, or diarrhea, No heartburn or reflux symptoms and no blood : No history of dysuria or blood. Some frequency at times. Up once a nigh. MUSCULOSKELETAL: left hip pain SKIN: Negative for lesions, rash, and itching PSYCH: Negative for sleep disturbance, mood disorder and recent psychosocial stressors. Doing ok with Zoloft. HEMATOLOGY/LYMPHOLOGY: Negative for prolonged bleeding, bruising easily or swollen nodes ENDOCRINE: Negative for cold or heat intolerance or symptoms of low BS's. FBS: 174 this AM NEURO: No history of headaches, syncope, paralysis, seizures or tremors and no symptoms of neuropathy. EXAM: BP 142/72 Pulse 88 Resp 12 Ht 170.2 cm (5' 7) Wt 109.3 kg (241 lb) BMI 37.75 kg/m? General Appearance: Well appearing, alert, in no acute distress, well-hydrated, well nourished.. Skin: Skin color, texture, turgor normal, no suspicious rashes or lesions. Head: Normocephalic, no masses, lesions, tenderness or abnormalities. Eyes: Anicteric sclera. Pupils are equally round and reactive to light. Extraocular movements are intact. . Ears: External ears normal, canals clear. Nose/Sinuses: Nares normal, septum midline, mucosa normal, no drainage or sinus tenderness. Oropharynx: Lips, mucosa, and tongue normal, teeth and gums normal, oropharynx normal. Neck: Supple, no adenopathy; thyroid symmetric, normal size, no bruits. Lungs: Lungs clear to auscultation. No wheezing, rhonchi, rales. Heart: RRR without murmur, gallop, or rubs. No ectopy. Abdomen: Normal abdominal exam, Abdomen soft, non-tender. Bowel sounds normal. No masses, organomegaly. Extremities: No deformities, edema, Musculoskeletal: No joint swelling, deformity, or tenderness. Muscle strength was normal. Peripheral Pulses: Normal. Neurologic: Gait normal. Reflexes normal and symmetric. Sensation to light touch and crainal nerves 2-12 intact.. Genitalia: Normal, Penis normal. No urethral discharge. Scrotum normal to palpation. No hernia.. Rectal: Normal exam. Prostate enlarged slightly with smooth firm capsule Feet: Shoes and socks removed, No deformities, ulcers, calluses, normal distal pulses, sensitive to 10 gm monofilament and vibratory perception normal Health Maintenance List DILATED RETINAL EXAM due on 02/26/2018 INFLUENZA(1) due on 03/08/2018 STATIN MED ADHERENCE due on 04/07/2018 DIABETES MED ADHERENCE due on 04/07/2018 DIABETIC FOOT EXAM due on 06/18/2018 HBA1C due on 09/05/2018 TWO PNEUMOVAX 5 YEARS APART PRIOR TO AGE 65(2) due on 12/14/2018 ANNUAL PCP TEAM CHRONIC DISEASE VISIT due on 12/23/2018 URINE ALBUMIN:CREATININE RATIO due on 03/08/2019 LDL CHOLESTEROL due on 03/08/2019 DTAP,TDAP,TD(2 - Td) due on 11/26/2023 COLORECTAL CANCER SCREENING,SEE MODIFIER due on 06/18/2024 PROSTATE CANCER SCREENING DISCUSSION Completed ADULT PREVNAR-13 Completed HEPATITIS C SCREENING Completed Data reviewed Component Latest Ref Rng AND Units 12/14/2017 03/08/2018 Color Yellow Yellow Clarity Clear Clear Glucose, Urine Negative mg/dL Negative Bilirubin, Urine Negative Negative Ketones, Urine Negative Negative Specific [place], Ur 1.005 - 1.030 1.027 Hemoglobin/Blood,Ur Negative Negative pH, Urine 4.5 - 8.0 5.0 Protein, Urine Negative mg/dL Negative Urobilinogen Normal Normal Nitrites Negative Negative Leukest Negative Negative Comments SEE COMMENT Urine Carlos Comment SEE COMMENT WBC, Urine 0 - 5 /HPF 0-5 RBC, Urine 0 - 3 /HPF 0-3 Epithelial Cells /HPF SEE COMMENT Crystal 0 /HPF SEE COMMENT (A) Protein, Total 6.3 - 8.0 g/dL 7.1 Albumin 3.9 - 4.9 g/dL 4.4 Calcium 8.5 - 10.2 mg/dL 9.6 Bilirubin, Total 0.2 - 1.3 mg/dL 0.4 Alkaline Phosphatase 36 - 108 U/L 37 AST 14 - 40 U/L 28 Glucose 74 - 99 mg/dL 152 (H) BUN 9 - 24 mg/dL 18 Creatinine 0.73 - 1.22 mg/dL 0.99 Sodium 136 - 144 mmol/L 139 Potassium 3.7 - 5.1 mmol/L 4.5 Chloride 97 - 105 mmol/L 105 CO2 22 - 30 mmol/L 18 (L) Anion Gap 9 - 18 mmol/L 16 ALT 10 - 54 U/L 33 eGFR- >60 eGFR-All Other Races . >60 Cholesterol, Total <200 mg/dL 151 154 Triglyceride <150 mg/dL 193 (H) 156 (H) HDL Cholesterol >39 mg/dL 41 33 (L) LDL Cholesterol <100 mg/dL 71 90 Non HDL Cholesterol <130 mg/dL 110 121 Fasting Time hrs 12 12 VLDL Cholesterol <30 mg/dL 39 (H) 31 (H) TC:HDL Ratio <5.10 3.68 4.67 LDL:HDL Ratio <2.54 1.73 2.73 (H) Creatinine, Ur Random (UCRR) 20 - 300 mg/dL 205.4 Albumin, Urine Random 0.0 - 23.0 mg/L <12.0 Albumin/Creat Ratio 0 - 30 mg/g Not calculated Hemoglobin A1C 4.3 - 5.6 % 5.9 (H) 5.6 Estimated Average Glucose mg/dL 123 114 PSA 0.00 - 2.59 ng/mL 1.99 A/P ASSESSMENT/PLAN: 1. Well adult exam - ICD9: V70.0, ICD10: Z00.00 (primary diagnosis) - Completed Digital Rectal exam - Recommended regular aerobic exercise. - Follow up for annual exam in one year. 2. Type 2 diabetes mellitus without complication, without long-term current use of insulin (HCC) - ICD9: 250.00, ICD10: E11.9 Controlled. - Continue current medications - Daily Asprin therapy recommended - BP goal of <130/80 - LDL goal of <100 3. Diabetic eye exam (HCC) - ICD9: V72.0, 250.00, ICD10: Z01.00, E11.9 - patient advised he needs to get for this year. 4. Dyslipidemia - ICD9: 272.4, ICD10: E78.5 - good control - Encouraged following a low fat, low cholesterol diet. - Discussed the benefits of regular aerobic exercise and weight loss. - Encouraged following a low carbohydrate, healthy oil intake diet. - Continue current therapy. 5. Chronic obstructive pulmonary disease, unspecified COPD type (HCC) - ICD9: 496, ICD10: J44.9 - Clinically stable and no change in treatment needed. 6. Anxiety and depression - ICD9: 300.00, 311, ICD10: F41.9, F32.9 - Stable with zoloft no changes. 7. Pain of left hip joint - ICD9: 719.45, ICD10: M25.552 - Patient to have MICHAEL 06/17/2018 and will need pre op clearance. Signed Prescriptions Disp Refills sertraline (ZOLOFT) 100 mg tablet 90 tablet 1 Sig: Take 1 tablet by mouth once daily. ARTHUR: No niacin ER (NIASPAN) 1,000 mg CR tablet 180 tablet 3 Sig: Take 2 tablets by mouth daily at bedtime. ARTHUR: No metFORMIN (GLUCOPHAGE) 500 mg tablet 360 tablet 1 Sig: Take 2 tablets by mouth twice daily with meals. ARTHUR: No fenofibrate nanocrystallized (TRICOR) 145 mg tablet 90 tablet 1 Sig: Take 1 tablet by mouth once daily. ARTHUR: No F/u 6 months routine check A1c and FLP prior. MD Mario Lazaro MD 03/12/2018 3:26 PM Signed Please get fasting labs on or after 08/29/2018 prior to next visit. Referring Provider: MARIO WOLFE [[id number]] Allergies As of Date: 03/12/2018 (No Known Allergies) Date Reviewed: 03/12/2018 Reviewed by: Mario Wolfe - Fully Assessed Reason for Visit: Physical [83] Cmt: 6 months Primary Visit Diagnosis:Well adult exam [Z00.00] Other Visit Diagnoses:Type 2 diabetes mellitus without complication, without long-term current use of insulin (HCC) [E11.9] Diabetic eye exam (HCC) [Z01.00, E11.9] Dyslipidemia [E78.5] Chronic obstructive pulmonary disease, unspecified COPD type (HCC) [J44.9] Anxiety and depression [F41.9, F32.9] Pain of left hip joint [M25.552] Order(s):sertraline (ZOLOFT) 100 mg tabletTake 1 tablet by mouth once daily.Disp: 90 tabletRfl: 1 niacin ER (NIASPAN) 1,000 mg CR tabletTake 2 tablets by mouth daily at bedtime.Disp: 180 tabletRfl: 3 metFORMIN (GLUCOPHAGE) 500 mg tabletTake 2 tablets by mouth twice daily with meals.Disp: 360 tabletRfl: 1 fenofibrate nanocrystallized (TRICOR) 145 mg tabletTake 1 tablet by mouth once daily.Disp: 90 tabletRfl: 1 HGB A1C [[id number]] Order #: [id number] FUTURE LIPID PANEL, NONFASTING [SQLIPNF] Order #: [id number] FUTURE Prescriptions as of 03/12/2018 Sig: SERTRALINE 100 MG TABLET Take 1 tablet by mouth once d* NIACIN ER 1,000 MG TABLET,EXT* Take 2 tablets by mouth daily* METFORMIN 500 MG TABLET Take 2 tablets by mouth twice* FENOFIBRATE NANOCRYSTALLIZED * Take 1 tablet by mouth once d* MELOXICAM 15 MG TABLET TAKE 1 TABLET DAILY FLOVENT DISKUS 100 MCG/ACTUAT* USE 1 INHALATION INSTRUCTE* ATORVASTATIN 20 MG TABLET TAKE 1 TABLET DAILY AT BEDTIM* LISINOPRIL 10 MG TABLET TAKE 1 TABLET DAILY LANCETS 28 GAUGE Test blood sugar once a day, * BLOOD SUGAR DIAGNOSTIC STRIPS Test blood sugar(s) one times* IPRATROPIUM 20 MCG-ALBUTEROL * Inhale 1 Inhalation as instru* ALBUTEROL SULFATE HFA 90 MCG/* Inhale 2 Puffs as instructed * OMEGA-3 FATTY ACIDS 500 MG CA* Take 1 capsule by mouth once * COMPOUNDED PRESCRIPTION Wrist cock-up splints One * ASPIRIN 325 MG TABLET Take 325 mg by mouth once julian* Problem List As Of Date 03/12/2018 Noted Resolved Dyslipidemia [E78.5] INVALID FOR* Priority: A Diabetic eye exam (HCC) [Z01.00, E11.9] INVALID FOR* Priority: A More... Well adult exam [Z00.00] INVALID FOR* Priority: E More... Special screening for malignant neoplasms, colo*INVALID FOR*06/18/2014 Deviated nasal septum [J34.2] INVALID FOR* Priority: B Carpal tunnel syndrome, bilateral [G56.03] INVALID FOR* Priority: D Prostate cancer screening [Z12.5] INVALID FOR* Colon cancer screening [Z12.11] INVALID FOR* Type 2 diabetes mellitus without complication, *INVALID FOR* Priority: A More... Elevated blood pressure reading without diagnos*INVALID FOR* Chronic obstructive pulmonary disease (HCC) [J4*INVALID FOR* Priority: A Pain of left hip joint [M25.552] INVALID FOR* Priority: M Ex-smoker [Z87.891] INVALID FOR* Priority: C More... MCL (mantle cell lymphoma) (HCC) [C83.10] INVALID FOR* Priority: B More... Anxiety and depression [F41.9, F32.9] INVALID FOR* Priority: A Other instructions from your clinician: Please get fasting labs on or after 08/29/2018 prior to next visit. Prescriptions ordered this encounter Disp Refills Start End SERTRALINE 100 MG TABLET 90 t* 1 03/12/2018 Route: ORAL Sig: Take 1 tablet by mouth once daily. NIACIN ER 1,000 MG TABLET,EXTENDED R* 180 * 3 03/12/2018 Route: ORAL Sig: Take 2 tablets by mouth daily at bedtime. METFORMIN 500 MG TABLET 360 * 1 03/12/2018 Route: ORAL Sig: Take 2 tablets by mouth twice daily with meals. FENOFIBRATE NANOCRYSTALLIZED 145 MG * 90 t* 1 03/12/2018 Route: ORAL Sig: Take 1 tablet by mouth once daily. Medications Discontinued During This Encounter sertraline (ZOLOFT) 100 mg tablet 90 t* 1 08/21/2017 03/12/2018 Class: [facility] Route: ORAL Sig: Take 1 tablet by mouth once daily. Disc: Reason for discontinue is not on file. niacin ER (NIASPAN) 1,000 mg CR tabl* 180 * 3 01/07/2017 03/12/2018 Route: ORAL Sig: Take 2 tablets by mouth daily at bedtime. Disc: Reason for discontinue is not on file. metFORMIN (GLUCOPHAGE) 500 mg tablet 360 * 1 08/21/2017 03/12/2018 Class: [facility] Route: ORAL Sig: Take 2 tablets by mouth twice daily with meals. Disc: Reason for discontinue is not on file. fenofibrate nanocrystallized (TRICOR* 90 t* 1 08/21/2017 03/12/2018 Class: [facility] Route: ORAL Sig: Take 1 tablet by mouth once daily. Disc: Reason for discontinue is not on file. Disposition: Return in about 6 months (around 09/09/2018) for carolyne. Follow-up and Disposition History Recorded Encounter Status:Closed by MARIO WOLFE on 03/12/18 ALBUMIN/CREAT RATIO Collected: 03/08/2018 Status: F Source: [place] 7:50 AM [facility] REPOSITORY TYPE CODE TESTS RESULT OUT OF REFERENCE UNITS RANGE LAB UCRR 20-300 mg/dL 205.4 Creatinine,Ur ine,Ran LAB UALBR 0.0-23.0 mg/L <12.0 Albumin Urine Random LAB UALBCR 0-30 mg/g Not Albumin/Creat calculated Ratio Performed By: #### UACR #### [facility] [address] [id number] PSA, DIAGNOSTIC Collected: 03/08/2018 Status: F Source: [place] 7:45 AM [facility] REPOSITORY TYPE CODE TESTS RESULT OUT OF REFERENCE UNITS RANGE LAB PSA 0.00-2.59 ng/mL PSA, Diagnostic 1.99 Result Comment: Total PSA test methodology used is the Electrochemiluminescence Immunoassay. Performed By: #### PSA, CMP, LIPB, HBA1C #### [facility] [address] [address] COMP METABOLIC PANEL Collected: 03/08/2018 Status: F Source: [place] 7:45 AM [facility] REPOSITORY TYPE CODE TESTS RESULT OUT OF REFERENCE UNITS RANGE LAB TP 6.3-8.0 g/dL Protein, Total 7.1 LAB ALB 3.9-4.9 g/dL Albumin 4.4 LAB CA 8.5-10.2 mg/dL Calcium, Total 9.6 LAB TBIL 0.2-1.3 mg/dL Bilirubin, Total 0.4 LAB ALKP 36-108 U/L Alkaline Phosphatase 37 LAB AST 14-40 U/L AST 28 LAB GLU 74-99 mg/dL Glucose High 152 Result Comment: The [place] Diabetes Association (ADA) provides guidance for cutoff values for fasting glucose and random glucose. The ADA defines fasting as no caloric intake for at least 8 hours. Fas ting plasma glucose results between 100 to 125 mg/dL indicate increased risk for diabetes (prediabetes). Fasting plasma glucose results greater than or equal to 126 mg/dL meet the criteria for diagnosis of diabetes. In the absence of unequivocal hyperglycemia, results should be confirmed by repeat testing. In a patient with classic symptoms of hyperglycemia or hyperglycemic crisis, random plasma glucose results greater than or equal to 200 mg/dL meet the criteria for diagnosis of diabetes. Reference: Standards of Medical Care in Diabetes 2016, [employer] Diabetes Association. Diabetes Care. 2016.39(Suppl 1). LAB BUN 9-24 mg/dL BUN 18 LAB CRET 0.73-1.22 mg/dL Creatinine 0.99 LAB NA 136-144 mmol/L Sodium 139 LAB K 3.7-5.1 mmol/L Potassium 4.5 LAB CL 97-105 mmol/L Chloride 105 LAB CO2 22-30 mmol/L CO2 Low 18 LAB AGAP 9-18 mmol/L Anion Gap 16 LAB ALT 10-54 U/L ALT 33 LAB GFRAA eGFR- Amer. >60 LAB GFRNAA . eGFR-All Other Races >60 Result Comment: eGFR (Estimated GFR) Units of measure: mL/min/1.73 meters squared eGFR is derived from the reexpressed MDRD Study equation using the following parameters: serum creatinine, age, gender and race. The creatinine assay has been calibrated to be traceable to IDMS. An eGFR <60 mL/min/1.73m2 for >3 months is consistent with chronic kidney disease. Refer to KDOQI guidelines for clinical interpretation. In patients with unstable renal function, e.g. those with acute kidney injury, the eGFR may not accurately reflect actual GFR. Performed By: #### PSA, CMP, LIPB, HBA1C #### [facility] [address] [place], [place] [address] LIPID PANEL, BASIC Collected: 03/08/2018 Status: F Source: [place] 7:45 AM [facility] REPOSITORY TYPE CODE TESTS RESULT OUT OF REFERENCE UNITS RANGE LAB CHOL <200 mg/dL Cholesterol 154 Result Comment: <200 mg/dL, Desirable 200-239 mg/dL, Borderline high >239 mg/dL, High LAB TRIGLY <150 mg/dL Triglyceride High 156 Result Comment: <150 mg/dL, Normal 150-199 mg/dL, Borderline high 200-499 mg/dL, High >499 mg/dL, Very high LAB HDL >39 mg/dL HDL-Cholesterol Low 33 Result Comment: 40-59 mg/dL, Acceptable >59 mg/dL, High: Negative risk factor for coronary heart disease <40 mg/dL, Low: Positive risk factor for coronary heart disease LAB LDL <100 mg/dL LDL-Cholesterol 90 Result Comment: <100 mg/dL, Optimal 100-129 mg/dL, Near optimal/above optimal 130-159 mg/dL, Borderline high 160-189 mg/dL, High >189 mg/dL, Very high Secondary prevention optimal LDL Cholesterol levels are recommended to be < 70 mg/dL LAB NONHDL <130 mg/dL Non HDL Cholesterol 121 Result Comment: <130 mg/dL, Optimal 130-159 mg/dL, Near optimal/above optimal 160-189 mg/dL, Borderline high 190-219 mg/dL, High >219 mg/dL, Very high Secondary prevention optimal non HDL Cholesterol levels are recommended to be < 100 mg/dL LAB FT hrs Fasting Time 12 LAB VLDL <30 mg/dL High VLDL Cholesterol 31 LAB TCHDL <5.10 TC:HDL Ratio 4.67 LAB LDLHDL <2.54 High LDL:HDL Ratio 2.73 Result Comment: Reference: 1. National Cholesterol Education Program ATP III Guideline At-A-Glance Quick Desk Reference: National Heart, Lung, and Blood [place]. National Institutes of Health. 2001: NIH Publication No. 01-3305. 2. An International Atherosclerosis Society position paper: global recommendations for the management of dyslipidemia: executive summary, Atherosclerosis. 2014: 232(2):410-413. Performed By: #### PSA, CMP, LIPB, HBA1C #### [facility] [address] [place] [address] HEMOGLOBIN A1C Collected: 03/08/2018 Status: F Source: [place] 7:45 AM [facility] REPOSITORY TYPE CODE TESTS RESULT OUT OF REFERENCE UNITS RANGE LAB HGBA1C 4.3-5.6 % Hemoglobin A1c 5.6 LAB HBA0 mg/dL Est. Average Glucose 114 Result Comment: eAG: (Estimated average glucose) is a calculated value from HgbA1c and is medical field representative of the average blood glucose level in the last 2-3 month period. Performed By: #### PSA, CMP, LIPB, HBA1C #### [facility] [address] [place], [place] [address] URINALYSIS WITH Collected: 03/08/2018 Status: F Source: [place] MICROSCOPIC 7:45 AM [facility] REPOSITORY TYPE CODE TESTS RESULT OUT OF REFERENCE UNITS RANGE LAB UCOL Yellow Color Yellow LAB [facility] Clear Clarity Clear LAB UGLUC Negative mg/dL Glucose, Urine Negative LAB UBIL Negative Bilirubin, Urine Negative LAB UKET Negative Ketones, Urine Negative LAB USPG 1.005-1.030 Specific [place], Ur 1.027 LAB UHGB Negative Hemoglobin/Blood, Negative Ur LAB UPH 4.5-8.0 pH 5.0 LAB UPROT Negative mg/dL Protein, Urine Negative LAB UUROB Normal Urobilinogen Normal LAB UNITR Negative Nitrites Negative LAB ULKEST Negative Leukest Negative LAB UCOM Comments SEE COMMENT Result Comment: N/A LAB UMCOM Urine SEE Carlos Comment COMMENT Result Comment: N/A LAB UWBC 0-5 /HPF WBC 0-5 LAB URBC 0-3 /HPF RBC 0-3 LAB UEPI /HPF Epithelial SEE Cells COMMENT Result Comment: Few Squamous Epithelial Cells LAB UCRYS 0 /HPF Abnormal Alert Crystals SEE COMMENT Result Comment: Few Calcium Oxalate Crystal Performed By: #### UAWMIC #### [facility] [address] [place] [address] PROGRESS Observed: 12/23/2017 Status: COMPLETED Source: [place] 10:40 AM [facility] REPOSITORY HNO ID: [id number] Author: Abhay Brown Service: (none) Author Type: Physician Waffle Machine Operator Type: Progress Notes Filed: 12/23/2017 11:51 AM Note Text: Chief Complaint Patient presents with: Recheck: Patient is here for 6 month follow up HPI Srini Junior is a 62 year old male who presents here today for Chronic Medical Conditions.. Only concern today is intermittent productive cough for the past 6 months. Has not tried OTC medications as of yet. Denies fevers. Always has feeling of something stuck in throat. Needs rescue inhaler infrequently. Overall doing well. States that his fasting blood glucose is typically 170s however recent hgbA1c is 5.9 Denies chest pain, worsening shortness of breath, h/a, n/t Past medical history, appointments, medications, allergies reviewed. Previous Medical History PAST MEDICAL HISTORY Diagnosis Date - Carpal tunnel syndrome, bilateral 09/08/2014 - COPD (chronic obstructive pulmonary disease) ([facility]) 11/25/2013 - Diabetes ([facility]) - DM type 2 (diabetes mellitus, type 2) ([facility]) 11/26/2013 - Dyslipidemia 11/25/2013 - Elevated fasting blood sugar 11/25/2013 - Lymphoma ([facility]) 11/25/2013 Previous Surgical History PAST SURGICAL HISTORY Procedure Laterality Date - *STRESS TEST PC 02/26/2017 normal. - COLONOSCOP W/ OR W/O BRSH SPEC 06/18/14 colonoscopy - PAST SURGICAL HISTORY OF mass in left lwer leg Dx as lymphoma (Tx with radiation) - TONSILLECTOMY HX Family History FAMILY HISTORY Problem Relation Age of Onset - Alzheimer's Disease Mother - Coronary Artery Disease Father late 60's Patient Allergies ALLERGIES No Known Allergies Current Medications Current Outpatient Prescriptions on File Prior to Visit: meloxicam (MOBIC) 15 mg tablet Take 1 tablet by mouth once daily. fenofibrate nanocrystallized (TRICOR) 145 mg tablet Take 1 tablet by mouth once daily. lisinopril (ZESTRIL, PRINIVIL) 10 mg tablet Take 1 tablet by mouth once daily. metFORMIN (GLUCOPHAGE) 500 mg tablet Take 2 tablets by mouth twice daily with meals. sertraline (ZOLOFT) 100 mg tablet Take 1 tablet by mouth once daily. Fluticasone Propionate (FLOVENT DISKUS) 100 mcg/actuation dsdv Inhale 100 mcg as instructed twice daily. atorvastatin (LIPITOR) 20 mg tablet TAKE 1 TABLET DAILY AT BEDTIME FOR CHOLESTEROL niacin ER (NIASPAN) 1,000 mg CR tablet Take 2 tablets by mouth daily at bedtime. Prosser-3 Fatty Acids (FISH OIL) 500 mg cap Take 1 capsule by mouth once daily. aspirin 325 mg tablet Take 325 mg by mouth once daily. blood sugar diagnostic (FREESTYLE LITE STRIPS) test strip Test blood sugar(s) one times daily. Dx: 250.02. Insulin: No Lancets (FREESTYLE LANCETS) lancets Test blood sugar(s) one times daily. Dx: 250.02. Insulin: No albuterol HFA (PROAIR HFA) 90 mcg/actuation inhaler Inhale 2 Puffs as instructed every 6 hours as needed. COMPOUNDED PRESCRIPTION Wrist cock-up splintsOne for right and left handsDx: Carpal Tunnel (354.0) No current facility-administered medications on file prior to visit. Social History Social History Marital status: Spouse name: Years of education: Number of children: Social History Main Topics Smoking status: Former Smoker Packs/day: 1.50 Years: 0.00 Quit date: 11/05/2006 Smokeless tobacco: Never Used Alcohol use: Yes Comment: seldom Drug use: No Review of Symptoms REVIEW OF SYSTEMS GENERAL: No weight loss, malaise or fevers NECK: Negative for lumps, goiter, pain and significant neck swelling RESPIRATORY: See HPI, neg for worsening COPD CARDIOVASCULAR: Negative for chest pain, leg swelling, CHF or palpitations HEMATOLOGY/LYMPHOLOGY: Negative for prolonged bleeding, bruising easily or swollen nodes NEURO: No history of headaches, syncope, paralysis, seizures or tremors EXAM: BP 118/74 (BP Site: Left Arm, BP Position: Sitting, BP Cuff Size: Large Adult) Pulse 88 Resp 14 Wt 112 kg (247 lb) BMI 37.56 kg/m? General Appearance: Well appearing, alert, in no acute distress, well-hydrated, well nourished.. obese Neck: Supple, no adenopathy; thyroid symmetric, normal size, no bruits. Lungs: Lungs clear to auscultation. No wheezing, rhonchi, rales. Heart: RRR without murmur, gallop, or rubs. No ectopy. Extremities: No deformities, edema, skin discoloration, clubbing or cyanosis. Good capillary refill. . Peripheral Pulses: Normal. Health Maintenance List ZOSTER VACCINE (SHINGRIX)(1 of 2) due on 11/01/2007 DILATED RETINAL EXAM due on 02/26/2018 URINE ALBUMIN CREATININE RATIO due on 04/04/2018 HBA1C due on 06/15/2018 DIABETIC FOOT EXAM due on 06/18/2018 LDL due on 12/14/2018 TWO PNEUMOVAX 5 YEARS APART PRIOR TO AGE 65(2) due on 12/14/2018 DTAP,TDAP,TD(2 - Td) due on 11/26/2023 COLORECTAL CANCER SCREENING,SEE MODIFIER due on 06/18/2024 PROSTATE CANCER SCREENING DISCUSSION Completed ADULT PREVNAR-13 Completed INFLUENZA Completed HEPATITIS C SCREENING Completed Data reviewed Component Latest Ref Rng AND Units 04/04/2017 12/14/2017 WBC 3.70 - 11.00 k/uL 9.36 RBC 4.20 - 6.00 m/uL 4.89 Hemoglobin 13.0 - 17.0 g/dL 15.5 Hematocrit 39.0 - 51.0 % 45.6 MCV 80.0 - 100.0 fL 93.3 MCH 26.0 - 34.0 pG 31.7 MCHC 30.5 - 36.0 g/dL 34.0 RDW-CV 11.5 - 15.0 % 12.8 Platelet Count 150 - 400 k/uL 291 MPV 9.0 - 12.7 fL 9.0 Neut% % 58.8 Abs Neut (ANC) 1.45 - 7.50 k/uL 5.50 Lymph% % 26.6 Abs Lymph 1.00 - 4.00 k/uL 2.49 [place]% % 8.0 Abs [place] 0.00 - 0.86 k/uL 0.75 E[place]% % 5.9 Abs Eosin 0.00 - 0.45 k/uL 0.55 (H) Baso% % 0.7 Abs Baso 0.00 - 0.10 k/uL 0.07 Nucleated Reds 0 /100 WBC 0.0 Absolute nRBC 0.00 k/uL 0.00 Diff Type Auto Diff Color Yellow Yellow Clarity Clear Clear Glucose, Urine Negative mg/dL Negative Bilirubin, Urine Negative Negative Ketones, Urine Negative Negative Specific [place], Ur 1.005 - 1.030 1.015 Hemoglobin/Blood,Ur Negative Negative pH, Urine 4.5 - 8.0 6.0 Protein, Urine Negative mg/dL Negative Urobilinogen Normal Normal Nitrites Negative Negative Leukest Negative Negative Comments SEE COMMENT Urine Carlos Comment SEE COMMENT WBC, Urine 0 - 5 /HPF 0-5 RBC, Urine 0 - 3 /HPF 0-3 Triglyceride <150 mg/dL 137 193 (H) Cholesterol, Total <200 mg/dL 157 151 HDL Cholesterol >39 mg/dL 41 (L) 41 VLDL Cholesterol <30 mg/dL 27 39 (H) LDL Cholesterol <100 mg/dL 89 71 Fasting Time hrs 12 12 TC:HDL Ratio <5.10 3.83 3.68 LDL:HDL Ratio <2.54 2.17 1.73 Non HDL Cholesterol <130 mg/dL 116 110 Creatinine, Ur Random (UCRR) 20 - 300 mg/dL 87.4 Albumin, Urine Random 0.0 - 23.0 mg/L <12.0 Albumin/Creat Ratio 0 - 30 mg/g Not calculated Hemoglobin A1C 4.3 - 5.6 % 6.1 (H) 5.9 (H) Estimated Average Glucose mg/dL 128 123 ASSESSMENT/PLAN: 1. Type 2 diabetes mellitus without complication, without long-term current use of insulin (HCC) - ICD9: 250.00, ICD10: E11.9 (primary diagnosis) Controlled. - Some concern that patient may be having more low blood sugars than he is aware. - I recommend patient to start checking random BG throughout the day and before bed time - Continue current medications - ALBUMIN/CREAT RATIO RND UR - COMP METABOLIC PANEL - HGB A1C - URINALYSIS WITH MICROSCOPIC 2. Chronic obstructive pulmonary disease, unspecified COPD type (HCC) - ICD9: 496, ICD10: J44.9 Stable 3. Dyslipidemia - ICD9: 272.4, ICD10: E78.5 - good control - Continue current medication. - LIPID PANEL BASIC 4. Mantle cell lymphoma of lymph nodes of lower extremity (HCC) - ICD9: 200.45, ICD10: C83.15 Stable- Remission 5. Anxiety and depression - ICD9: 300.00, 311, ICD10: F41.9, F32.9 Stable on current medications 6. Cough - ICD9: 786.2, ICD10: R05 Try OTC loratidine 7. Screening for prostate cancer - ICD9: V76.44, ICD10: Z12.5 - Check PSA - Follow up for annual exam in one year. - PSA/PROSTSPECAG DIAG Discussed with patient concern for low blood sugars during the day or in middle of the night. I have asked him to start monitoring random blood sugars throughout day and before bed. As well as bring in glucometer so that we can check to see if it's accurate. Does not need to be multiple times a day. Just different times of the day each day. Follow up as scheduled for PE. Labs prior. Return sooner as needed. COLLIN MEYER Observed: 12/23/2017 Status: COMPLETED Source: [place] 10:40 AM [facility] REPOSITORY Office Visit (FAMPWS) SRINI JUNIOR ([id number]) 1955 M Date Time Provider Department 12/23/17 10:40 AM ROSARIO BROWN) NIYA During your visit today, we recorded the following information about you: Pulse Respiration Blood pressure Weight 88/minute 14/minute 118/74 112 kg HILDA BROWN PA-C 12/23/2017 11:51 AM Signed Chief Complaint Patient presents with: Recheck: Patient is here for 6 month follow up HPI Srini Junior is a 62 year old male who presents here today for Chronic Medical Conditions.. Only concern today is intermittent productive cough for the past 6 months. Has not tried OTC medications as of yet. Denies fevers. Always has feeling of something stuck in throat. Needs rescue inhaler infrequently. Overall doing well. States that his fasting blood glucose is typically 170s however recent hgbA1c is 5.9 Denies chest pain, worsening shortness of breath, h/a, n/t Past medical history, appointments, medications, allergies reviewed. Previous Medical History PAST MEDICAL HISTORY Diagnosis Date - Carpal tunnel syndrome, bilateral 09/08/2014 - COPD (chronic obstructive pulmonary disease) ([facility]) 11/25/2013 - Diabetes ([facility]) - DM type 2 (diabetes mellitus, type 2) ([facility]) 11/26/2013 - Dyslipidemia 11/25/2013 - Elevated fasting blood sugar 11/25/2013 - Lymphoma ([facility]) 11/25/2013 Previous Surgical History PAST SURGICAL HISTORY Procedure Laterality Date - *STRESS TEST PC 02/26/2017 normal. - COLONOSCOP W/ OR W/O BRSH SPEC 06/18/14 colonoscopy - PAST SURGICAL HISTORY OF mass in left lwer leg Dx as lymphoma (Tx with radiation) - TONSILLECTOMY HX Family History FAMILY HISTORY Problem Relation Age of Onset - Alzheimer's Disease Mother - Coronary Artery Disease Father late 60's Patient Allergies ALLERGIES No Known Allergies Current Medications Current Outpatient Prescriptions on File Prior to Visit: meloxicam (MOBIC) 15 mg tablet Take 1 tablet by mouth once daily. fenofibrate nanocrystallized (TRICOR) 145 mg tablet Take 1 tablet by mouth once daily. lisinopril (ZESTRIL, PRINIVIL) 10 mg tablet Take 1 tablet by mouth once daily. metFORMIN (GLUCOPHAGE) 500 mg tablet Take 2 tablets by mouth twice daily with meals. sertraline (ZOLOFT) 100 mg tablet Take 1 tablet by mouth once daily. Fluticasone Propionate (FLOVENT DISKUS) 100 mcg/actuation dsdv Inhale 100 mcg as instructed twice daily. atorvastatin (LIPITOR) 20 mg tablet TAKE 1 TABLET DAILY AT BEDTIME FOR CHOLESTEROL niacin ER (NIASPAN) 1,000 mg CR tablet Take 2 tablets by mouth daily at bedtime. Prosser-3 Fatty Acids (FISH OIL) 500 mg cap Take 1 capsule by mouth once daily. aspirin 325 mg tablet Take 325 mg by mouth once daily. blood sugar diagnostic (FREESTYLE LITE STRIPS) test strip Test blood sugar(s) one times daily. Dx: 250.02. Insulin: No Lancets (FREESTYLE LANCETS) lancets Test blood sugar(s) one times daily. Dx: 250.02. Insulin: No albuterol HFA (PROAIR HFA) 90 mcg/actuation inhaler Inhale 2 Puffs as instructed every 6 hours as needed. COMPOUNDED PRESCRIPTION Wrist cock-up splintsOne for right and left handsDx: Carpal Tunnel (354.0) No current facility-administered medications on file prior to visit. Social History Social History Marital status: Spouse name: Years of education: Number of children: Social History Main Topics Smoking status: Former Smoker Packs/day: 1.50 Years: 0.00 Quit date: 11/05/2006 Smokeless tobacco: Never Used Alcohol use: Yes Comment: seldom Drug use: No Review of Symptoms REVIEW OF SYSTEMS GENERAL: No weight loss, malaise or fevers NECK: Negative for lumps, goiter, pain and significant neck swelling RESPIRATORY: See HPI, neg for worsening COPD CARDIOVASCULAR: Negative for chest pain, leg swelling, CHF or palpitations HEMATOLOGY/LYMPHOLOGY: Negative for prolonged bleeding, bruising easily or swollen nodes NEURO: No history of headaches, syncope, paralysis, seizures or tremors EXAM: BP 118/74 (BP Site: Left Arm, BP Position: Sitting, BP Cuff Size: Large Adult) Pulse 88 Resp 14 Wt 112 kg (247 lb) BMI 37.56 kg/m? General Appearance: Well appearing, alert, in no acute distress, well-hydrated, well nourished.. obese Neck: Supple, no adenopathy; thyroid symmetric, normal size, no bruits. Lungs: Lungs clear to auscultation. No wheezing, rhonchi, rales. Heart: RRR without murmur, gallop, or rubs. No ectopy. Extremities: No deformities, edema, skin discoloration, clubbing or cyanosis. Good capillary refill. . Peripheral Pulses: Normal. Health Maintenance List ZOSTER VACCINE (SHINGRIX)(1 of 2) due on 11/01/2007 DILATED RETINAL EXAM due on 02/26/2018 URINE ALBUMIN CREATININE RATIO due on 04/04/2018 HBA1C due on 06/15/2018 DIABETIC FOOT EXAM due on 06/18/2018 LDL due on 12/14/2018 TWO PNEUMOVAX 5 YEARS APART PRIOR TO AGE 65(2) due on 12/14/2018 DTAP,TDAP,TD(2 - Td) due on 11/26/2023 COLORECTAL CANCER SCREENING,SEE MODIFIER due on 06/18/2024 PROSTATE CANCER SCREENING DISCUSSION Completed ADULT PREVNAR-13 Completed INFLUENZA Completed HEPATITIS C SCREENING Completed Data reviewed Component Latest Ref Rng AND Units 04/04/2017 12/14/2017 WBC 3.70 - 11.00 k/uL 9.36 RBC 4.20 - 6.00 m/uL 4.89 Hemoglobin 13.0 - 17.0 g/dL 15.5 Hematocrit 39.0 - 51.0 % 45.6 MCV 80.0 - 100.0 fL 93.3 MCH 26.0 - 34.0 pG 31.7 MCHC 30.5 - 36.0 g/dL 34.0 RDW-CV 11.5 - 15.0 % 12.8 Platelet Count 150 - 400 k/uL 291 MPV 9.0 - 12.7 fL 9.0 Neut% % 58.8 Abs Neut (ANC) 1.45 - 7.50 k/uL 5.50 Lymph% % 26.6 Abs Lymph 1.00 - 4.00 k/uL 2.49 [place]% % 8.0 Abs [place] 0.00 - 0.86 k/uL 0.75 Eosin% % 5.9 Abs Eosin 0.00 - 0.45 k/uL 0.55 (H) Baso% % 0.7 Abs Baso 0.00 - 0.10 k/uL 0.07 Nucleated Reds 0 /100 WBC 0.0 Absolute nRBC 0.00 k/uL 0.00 Diff Type Auto Diff Color Yellow Yellow Clarity Clear Clear Glucose, Urine Negative mg/dL Negative Bilirubin, Urine Negative Negative Ketones, Urine Negative Negative Specific [place], Ur 1.005 - 1.030 1.015 Hemoglobin/Blood,Ur Negative Negative pH, Urine 4.5 - 8.0 6.0 Protein, Urine Negative mg/dL Negative Urobilinogen Normal Normal Nitrites Negative Negative Leukest Negative Negative Comments SEE COMMENT Urine Carlos Comment SEE COMMENT WBC, Urine 0 - 5 /HPF 0-5 RBC, Urine 0 - 3 /HPF 0-3 Triglyceride <150 mg/dL 137 193 (H) Cholesterol, Total <200 mg/dL 157 151 HDL Cholesterol >39 mg/dL 41 (L) 41 VLDL Cholesterol <30 mg/dL 27 39 (H) LDL Cholesterol <100 mg/dL 89 71 Fasting Time hrs 12 12 TC:HDL Ratio <5.10 3.83 3.68 LDL:HDL Ratio <2.54 2.17 1.73 Non HDL Cholesterol <130 mg/dL 116 110 Creatinine, Ur Random (UCRR) 20 - 300 mg/dL 87.4 Albumin, Urine Random 0.0 - 23.0 mg/L <12.0 Albumin/Creat Ratio 0 - 30 mg/g Not calculated Hemoglobin A1C 4.3 - 5.6 % 6.1 (H) 5.9 (H) Estimated Average Glucose mg/dL 128 123 ASSESSMENT/PLAN: 1. Type 2 diabetes mellitus without complication, without long-term current use of insulin ([facility]) - ICD9: 250.00, ICD10: E11.9 (primary diagnosis) Controlled. - Some concern that patient may be having more low blood sugars than he is aware. - I recommend patient to start checking random BG throughout the day and before bed time - Continue current medications - ALBUMIN/CREAT RATIO RND UR - COMP METABOLIC PANEL - HGB A1C - URINALYSIS WITH MICROSCOPIC 2. Chronic obstructive pulmonary disease, unspecified COPD type (HCC) - ICD9: 496, ICD10: J44.9 Stable 3. Dyslipidemia - ICD9: 272.4, ICD10: E78.5 - good control - Continue current medication. - LIPID PANEL BASIC 4. Mantle cell lymphoma of lymph nodes of lower extremity (HCC) - ICD9: 200.45, ICD10: C83.15 Stable- Remission 5. Anxiety and depression - ICD9: 300.00, 311, ICD10: F41.9, F32.9 Stable on current medications 6. Cough - ICD9: 786.2, ICD10: R05 Try OTC loratidine 7. Screening for prostate cancer - ICD9: V76.44, ICD10: Z12.5 - Check PSA - Follow up for annual exam in one year. - PSA/PROSTSPECAG DIAG Discussed with patient concern for low blood sugars during the day or in middle of the night. I have asked him to start monitoring random blood sugars throughout day and before bed. As well as bring in glucometer so that we can check to see if it's accurate. Does not need to be multiple times a day. Just different times of the day each day. Follow up as scheduled for PE. Labs prior. Return sooner as needed. COLLIN MEYER PA-C 12/23/2017 11:06 AM Signed Please get fasting blood work prior to next office visit. Follow up sooner as needed. Referring Provider: MARIO WOLFE [[id number]] Allergies As of Date: 12/23/2017 (No Known Allergies) Date Reviewed: 12/23/2017 Reviewed by: Rosario) Kevin - Fully Assessed Reason for Visit: Recheck [92] Cmt: Patient is here for 6 month follow up Primary Visit Diagnosis:Type 2 diabetes mellitus without complication, without long-term current use of insulin (HCC) [E11.9] Other Visit Diagnoses:Chronic obstructive pulmonary disease, unspecified COPD type (HCC) [J44.9] Mantle cell lymphoma of lymph nodes of lower extremity (HCC) [C83.15] Anxiety and depression [F41.9, F32.9] Cough [R05] Screening for prostate cancer [Z12.5] Dyslipidemia [E78.5] Order(s):ipratropium-albuterol (COMBIVENT RESPIMAT) 20-100 mcg/actuation mistInhale 1 Inhalation as instructed three times daily.Disp: 3 CartridgeRfl: 3 ALBUMIN/CREAT RATIO RND UR [SQUACR] Order #: [id number] FUTURE COMP METABOLIC PANEL [SQCMP] Order #: [id number] FUTURE HGB A1C [TUJEH7F] Order #: [id number] FUTURE URINALYSIS WITH MICROSCOPIC [SQUAWMIC] Order #: [id number] FUTURE PSA/PROSTSPECAG DIAG [SQPSA] Order #: [id number] FUTURE LIPID PANEL BASIC [SQLIPB] Order #: [id number] FUTURE Prescriptions as of 12/23/2017 Sig: MELOXICAM 15 MG TABLET Take 1 tablet by mouth once d* FENOFIBRATE NANOCRYSTALLIZED * Take 1 tablet by mouth once d* LISINOPRIL 10 MG TABLET Take 1 tablet by mouth once d* METFORMIN 500 MG TABLET Take 2 tablets by mouth twice* SERTRALINE 100 MG TABLET Take 1 tablet by mouth once d* FLUTICASONE 100 MCG/ACTUATION* Inhale 100 mcg as instructed * ATORVASTATIN 20 MG TABLET TAKE 1 TABLET DAILY AT BEDTIM* NIACIN ER 1,000 MG TABLET,EXT* Take 2 tablets by mouth daily* OMEGA-3 FATTY ACIDS 500 MG CA* Take 1 capsule by mouth once * ASPIRIN 325 MG TABLET Take 325 mg by mouth once julian* BLOOD SUGAR DIAGNOSTIC STRIPS Test blood sugar(s) one times* LANCETS Test blood sugar(s) one times* IPRATROPIUM 20 MCG-ALBUTEROL * Inhale 1 Inhalation as instru* ALBUTEROL SULFATE HFA 90 MCG/* Inhale 2 Puffs as instructed * COMPOUNDED PRESCRIPTION Wrist cock-up splints One * Problem List As Of Date 12/23/2017 Noted Resolved Dyslipidemia [E78.5] INVALID FOR* Priority: A Diabetic eye exam (HCC) [Z01.00, E11.9] INVALID FOR* Priority: A More... Well adult exam [Z00.00] INVALID FOR* Priority: E More... Special screening for malignant neoplasms, colo*INVALID FOR*06/18/2014 Deviated nasal septum [J34.2] INVALID FOR* Priority: B Carpal tunnel syndrome, bilateral [G56.03] INVALID FOR* Priority: D Prostate cancer screening [Z12.5] INVALID FOR* Colon cancer screening [Z12.11] INVALID FOR* Type 2 diabetes mellitus without complication, *INVALID FOR* Priority: A More... Elevated blood pressure reading without diagnos*INVALID FOR* Chronic obstructive pulmonary disease (HCC) [J4*INVALID FOR* Priority: A Pain of left hip joint [M25.552] INVALID FOR* Priority: M Ex-smoker [Z87.891] INVALID FOR* Priority: C More... MCL (mantle cell lymphoma) (HCC) [C83.10] INVALID FOR* Priority: B More... Anxiety and depression [F41.9, F32.9] INVALID FOR* Other instructions from your clinician: Please get fasting blood work prior to next office visit. Follow up sooner as needed. Prescriptions ordered this encounter Disp Refills Start End IPRATROPIUM 20 MCG-ALBUTEROL 100 MCG* 3 Ca* 3 12/23/2017 Route: INHALATION Sig: Inhale 1 Inhalation as instructed three times daily. Encounter Status:Closed by HILDA MORFIN on 12/23/17 HEMOGLOBIN A1C Collected: 12/14/2017 Status: F Source: [place] 7:40 AM [facility] REPOSITORY TYPE CODE TESTS RESULT OUT OF REFERENCE UNITS RANGE LAB HGBA1C 4.3-5.6 % High Hemoglobin A1c 5.9 LAB HBA0 mg/dL Est. Average Glucose 123 Result Comment: eAG: (Estimated average glucose) is a calculated value from HgbA1c and is medical field representative of the average blood glucose level in the last 2-3 month period. Performed By: #### HBA1C, LIPB #### [facility] [address] [address] LIPID PANEL, BASIC Collected: 12/14/2017 Status: F Source: [place] 7:40 AM [facility] REPOSITORY TYPE CODE TESTS RESULT OUT OF REFERENCE UNITS RANGE LAB CHOL <200 mg/dL Cholesterol 151 Result Comment: <200 mg/dL, Desirable 200-239 mg/dL, Borderline high >239 mg/dL, High LAB TRIGLY <150 mg/dL Triglyceride High 193 Result Comment: <150 mg/dL, Normal 150-199 mg/dL, Borderline high 200-499 mg/dL, High >499 mg/dL, Very high LAB HDL >39 mg/dL HDL-Cholesterol 41 Result Comment: 40-59 mg/dL, Acceptable >59 mg/dL, High: Negative risk factor for coronary heart disease <40 mg/dL, Low: Positive risk factor for coronary heart disease LAB LDL <100 mg/dL LDL-Cholesterol 71 Result Comment: <100 mg/dL, Optimal 100-129 mg/dL, Near optimal/above optimal 130-159 mg/dL, Borderline high 160-189 mg/dL, High >189 mg/dL, Very high Secondary prevention optimal LDL Cholesterol levels are recommended to be < 70 mg/dL LAB NONHDL <130 mg/dL Non HDL Cholesterol 110 Result Comment: <130 mg/dL, Optimal 130-159 mg/dL, Near optimal/above optimal 160-189 mg/dL, Borderline high 190-219 mg/dL, High >219 mg/dL, Very high Secondary prevention optimal non HDL Cholesterol levels are recommended to be < 100 mg/dL LAB FT hrs Fasting Time 12 LAB VLDL <30 mg/dL High VLDL Cholesterol 39 LAB TCHDL <5.10 TC:HDL Ratio 3.68 LAB LDLHDL <2.54 LDL:HDL Ratio 1.73 Result Comment: Reference: 1. National Cholesterol Education Program ATP III Guideline At-A-Glance Quick Desk Reference: National Heart, Lung, and Blood [place]. National Institutes of Health. 2001: NIH Publication No. 01-3305. 2. An International Atherosclerosis Society position paper: global recommendations for the management of dyslipidemia: executive summary, Atherosclerosis. 2014: 232(2):410-413. Performed By: #### HBA1C, LIPB #### [facility] [address] [address] PROGRESS Observed: 10/25/2017 Status: COMPLETED Source: [place] 5:08 PM [facility] REPOSITORY HNO ID: [id number] Author: He Castro V Service: (none) Author Type: Physician Type: Progress Notes Filed: 10/25/2017 5:10 PM Note Text: FRACTURE FOLLOW-UP Mr. Junior presents today for his follow-up visit from: Left hip pain He is still having significant hip pain on the left side, mainly at the end of the work day and in the evening. Last cortisone injection did not seem to be of much benefit. He takes meloxicam which seems to help during the day but by the end of the day it seems to lose its effectiveness. He reports no change in past medical AND surgical history, medications, allergies, social history, family history and review of systems since last visit, with the exception of the following: None Radiographs: Radiographs revealed degenerative changes in the left hip joint. Otherwise, osseous and soft tissue structures within normal limits. Physical Examination: moderate tenderness about the greater trochanter Positive EHL, FHL, AT, GS, Quads, and HS Positive distal pulses Negative Jessica's, calf tenderness or palpable cords PROCEDURE: Not applicable Impression: Osteoarthritis left hip Plan: Discussed further treatment options including additional physical therapy, modifying or changing timing of meloxicam dose for better relief toward end of day. Discussed surgical referral to consult for total hip replacement. Patient states that he does not want to do that at this time, he would rather continue with conservative treatment for now. DO Wil Foreman M.D. CNOV Observed: 10/25/2017 Status: COMPLETED Source: [place] 3:40 PM [facility] REPOSITORY Office Visit ([facility]) SRINI JUNIOR Tu ([id number]) 1955 M Date Time Provider Department 10/25/17 3:40 PM HE CASTRO During your visit today, we recorded the following information about you: He Castro DO 10/25/2017 5:10 PM Signed FRACTURE FOLLOW-UP Mr. Junior presents today for his follow-up visit from: Left hip pain He is still having significant hip pain on the left side, mainly at the end of the work day and in the evening. Last cortisone injection did not seem to be of much benefit. He takes meloxicam which seems to help during the day but by the end of the day it seems to lose its effectiveness. He reports no change in past medical ANDamp; surgical history, medications, allergies, social history, family history and review of systems since last visit, with the exception of the following: None Radiographs: Radiographs revealed degenerative changes in the left hip joint. Otherwise, osseous and soft tissue structures within normal limits. Physical Examination: moderate tenderness about the greater trochanter Positive EHL, FHL, AT, GS, Quads, and HS Positive distal pulses Negative Jessica's, calf tenderness or palpable cords PROCEDURE: Not applicable Impression: Osteoarthritis left hip Plan: Discussed further treatment options including additional physical therapy, modifying or changing timing of meloxicam dose for better relief toward end of day. Discussed surgical referral to consult for total hip replacement. Patient states that he does not want to do that at this time, he would rather continue with conservative treatment for now. DO Wil Foreman M.D. Referring Provider: HE CASTRO V [[id number]] Allergies As of Date: 10/25/2017 (No Known Allergies) Date Reviewed: 10/09/2017 Reviewed by: Faiza Celis Ma - Fully Assessed Reason for Visit: Established Patient [175] Cmt: 2 week 2 days post visit Left hip pain Primary Visit Diagnosis:Osteoarthritis of one hip, left [M16.12] Order(s):CONSULT TO PHYSICAL THERAPY [9032] Order #: [id number]: 1 Prescriptions as of 10/25/2017 Sig: MELOXICAM 15 MG TABLET Take 1 tablet by mouth once d* FENOFIBRATE NANOCRYSTALLIZED * Take 1 tablet by mouth once d* LISINOPRIL 10 MG TABLET Take 1 tablet by mouth once d* METFORMIN 500 MG TABLET Take 2 tablets by mouth twice* SERTRALINE 100 MG TABLET Take 1 tablet by mouth once d* FLUTICASONE 100 MCG/ACTUATION* Inhale 100 mcg as instructed * ALBUTEROL SULFATE HFA 90 MCG/* Inhale 2 Puffs as instructed * ATORVASTATIN 20 MG TABLET TAKE 1 TABLET DAILY AT BEDTIM* NIACIN ER 1,000 MG TABLET,EXT* Take 2 tablets by mouth daily* OMEGA-3 FATTY ACIDS 500 MG CA* Take 1 capsule by mouth once * COMPOUNDED PRESCRIPTION Wrist cock-up splints One * ASPIRIN 325 MG TABLET Take 325 mg by mouth once julian* BLOOD SUGAR DIAGNOSTIC STRIPS Test blood sugar(s) one times* LANCETS Test blood sugar(s) one times* Problem List As Of Date 10/25/2017 Noted Resolved Dyslipidemia [E78.5] INVALID FOR* Priority: A Diabetic eye exam (HCC) [Z01.00, E11.9] INVALID FOR* Priority: A More... Well adult exam [Z00.00] INVALID FOR* Priority: E More... Special screening for malignant neoplasms, colo*INVALID FOR*06/18/2014 Deviated nasal septum [J34.2] INVALID FOR* Priority: B Carpal tunnel syndrome, bilateral [G56.03] INVALID FOR* Priority: D Prostate cancer screening [Z12.5] INVALID FOR* Colon cancer screening [Z12.11] INVALID FOR* Type 2 diabetes mellitus without complication, *INVALID FOR* Priority: A More... Elevated blood pressure reading without diagnos*INVALID FOR* Chronic obstructive pulmonary disease (HCC) [J4*INVALID FOR* Priority: A Pain of left hip joint [M25.552] INVALID FOR* Priority: M Ex-smoker [Z87.891] INVALID FOR* Priority: C More... MCL (mantle cell lymphoma) (HCC) [C83.10] INVALID FOR* Priority: B More... Anxiety and depression [F41.9, F32.9] INVALID FOR* Encounter Status:Closed by HE CASTRO DO, V on 10/25/17 XR HIP 3V PELV+ Observed: 10/09/2017 Status: F Source: [place] AP/LAT LT 1:55 PM [facility] REPOSITORY * * *Final Report* * * DATE OF EXAM: Oct 09 2017 1:55PM [id number] [id number] - XR HIP 3V PELV+ AP/LAT LT / PROCEDURE REASON: Unspecified disorder of synovium and tendon, left thigh * * * * Physician Interpretation * * * * HISTORY: No injury. Left lateral hip pain that comes and goes for years.. Unspecified disorder of synovium and tendon, left thigh . TECHNIQUE: XR HIP 3V PELV+ AP/LAT LT Laterality: LEFT Number of different views (projections): 3 COMPARISON: None RESULT: Severe narrowing of the left hip with osteophyte and subchondral cyst formation present. No fracture. The right hip is well-maintained. The bony pelvis is intact. Sacroiliac joints appear normal. IMPRESSION: Severe degenerative arthritis of the left hip. Long Chain Beamer: PSCB Transcribe Date/Time: Oct 10 2017 9:46P Dictated by : PETR ODOM MD This examination was interpreted and the report reviewed and electronically signed by: PETR ODOM MD on Oct 10 2017 9:47PM EST [id number] PROGRESS Observed: 10/09/2017 Status: COMPLETED Source: [place] 1:46 PM [facility] [place] REPOSITORY HNO ID: [id number] Author: Evelyne Maurice (Rt) Lorri Mayo Service: (none) Author Type: Section Gang Worker Type: Progress Notes Filed: 10/09/2017 1:55 PM Note Text: Radiology Service Progress Note PATIENT NAME: Srini Junior DATE OF SERVICE: October 09, 2017 TIME: 1:46 PM PATIENT IDENTITY VERIFICATION COMPLETED USING TWO (2) METHODS: Patient confirmed name verbally and Date of . PATIENT GENDER DATA: Male PATIENT RELEVANT IMPLANT DATA REVIEWED: Not Applicable RADIOLOGY DEPARTMENT: General X-ray: Exam(s) Completed: Pelvis X-Ray: Pelvis with Hip Left PERIPHERAL IV DATA: Not applicable SIGNED BY: RT Bri October 09, 2017 1:46 PM PROGRESS Observed: 10/09/2017 Status: COMPLETED Source: [place] 1:42 PM [facility] [place] REPOSITORY HNO ID: [id number] Author: He Castro V Service: (none) Author Type: Physician Type: Progress Notes Filed: 10/09/2017 1:45 PM Note Text: SUBJECTIVE: This is a 61 year old male that is here today for follow up on left hip pain. Patient reports pain returning, especially when sitting for prolonged period of time, then standing. He has a [address] to work every day, and states that when he gets to work he has difficulty getting out of the car because of the pain. He is doing stretches daily, and takes meloxicam once a day. PAST MEDICAL HISTORY Diagnosis Date - Carpal tunnel syndrome, bilateral 09/08/2014 - COPD (chronic obstructive pulmonary disease) ([facility]) 11/25/2013 - Diabetes ([facility]) - DM type 2 (diabetes mellitus, type 2) ([facility]) 11/26/2013 - Dyslipidemia 11/25/2013 - Elevated fasting blood sugar 11/25/2013 - Lymphoma ([facility]) 11/25/2013 PAST SURGICAL HISTORY Procedure Laterality Date - *STRESS TEST PC 02/26/2017 normal. - COLONOSCOP W/ OR W/O BRSH SPEC 06/18/14 colonoscopy - PAST SURGICAL HISTORY OF mass in left lwer leg Dx as lymphoma (Tx with radiation) - TONSILLECTOMY HX OBJECTIVE: APPEARANCE Well appearing, alert, in no acute distress, well-hydrated, well nourished. EXTREMITIES No edema, Normal pulses bilaterally. and left hip tender over posterior aspect of greater trochanter with palpation and with SONNY maneuver. Negative SLR. No focal sensorineural deficits. ASSESSMENT: gluteus medius tendonitis, trochanteric bursitis left hip somatic dysfunction left hip PLAN: reviewed , visit. Risks, benefits, alternatives and personnel discussed with patient who consents to proceed. Patient wished to proceed. 6mg celestone with 2cc, 1% lidocaine and 2cc .5% marcaine was injected. Injection was carried out under sterile conditions through a LATERAL site at greater trochanter. Patient had no immediate complications and tolerated the procedure well. He Castro DO CNOV Observed: 10/09/2017 Status: COMPLETED Source: [place] 1:20 PM [facility] REPOSITORY Office Visit ([facility]) SRINI JUNIOR ([id number]) 1955 M Date Time Provider Department 10/09/17 1:20 PM HE CASTRO During your visit today, we recorded the following information about you: Faiza Celis Ma 10/09/2017 1:45 PM Signed Fluid, vaporizer, acetaminophen. AMB ROOMING INTAKE FLOWSHEET DATA Risk Screening Do you have concerns about personal safety or safety in the home?: No Pain Pain Score: 2/10 Pain Location: Hip-Left Description: Dull Duration Amount of Time: (Ongoing) Frequency: Intermittent (When getting in and out of the car, up from a seated postition) Intervention: Medication Patient states he left hip pain has been increasing. Hip is painful getting in and out of the car. Hurts to get up from a seated position. Taking Mobic for the pain and does help. He Castro DO 10/09/2017 1:45 PM Signed SUBJECTIVE: This is a 61 year old male that is here today for follow up on left hip pain. Patient reports pain returning, especially when sitting for prolonged period of time, then standing. He has a [address] to work every day, and states that when he gets to work he has difficulty getting out of the car because of the pain. He is doing stretches daily, and takes meloxicam once a day. PA[facility] HISTORY [facility], [facility] COPD (chronic obstructive pulmonary disease) (HCC) 11/25/2013 - Diabetes (HCC) - DM type 2 (diabetes mellitus, type 2) (HCC) 11/26/2013 - Dyslipidemia 11/25/2013 - Elevated fasting blood sugar 11/25/2013 - Lymphoma (HCC) 11/25/2013 PAST SURGICAL HISTORY Procedure Laterality Date - *STRESS TEST PC 02/26/2017 normal. - COLONOSCOP W/ OR W/O BRSH SPEC 06/18/14 colonoscopy - PAST SURGICAL HISTORY OF mass in left lwer leg Dx as lymphoma (Tx with radiation) - TONSILLECTOMY HX OBJECTIVE: APPEARANCE Well appearing, alert, in no acute distress, well- hydrated, well nourished. EXTREMITIES No edema, Normal pulses bilaterally. and left hip tender over posterior aspect of greater trochanter with palpation and with SONNY maneuver. Negative SLR. No focal sensorineural deficits. ASSESSMENT: gluteus medius tendonitis, trochanteric bursitis left hip somatic dysfunction left hip PLAN: reviewed st visit. Risks, benefits, alternatives and personnel discussed with patient who consents to proceed. Patient wished to proceed. 6mg celestone with 2cc, 1% lidocaine and 2cc .5% marcaine was injected. Injection was carried out under sterile conditions through a LATERAL site at greater trochanter. Patient had no immediate complications and tolerated the procedure well. He Castro DO Referring Provider: MARIO WOLFE [[id number]] Allergies As of Date: 10/09/2017 (No Known Allergies) Date Reviewed: 10/09/2017 Reviewed by: Faiza Celis Ma - Fully Assessed Reason for Visit: Established Patient [175] Cmt: 7 months post visit left hip pain Primary Visit Diagnosis:Tendinopathy of left gluteus medius [M67.952] Order(s):XR HIP GENERAL 3V PELV/AP/LAT LT [[id number]] Order #: [id number] FUTURE Prescriptions as of 10/09/2017 Sig: MELOXICAM 15 MG TABLET Take 1 tablet by mouth once d* FENOFIBRATE NANOCRYSTALLIZED * Take 1 tablet by mouth once d* LISINOPRIL 10 MG TABLET Take 1 tablet by mouth once d* METFORMIN 500 MG TABLET Take 2 tablets by mouth twice* SERTRALINE 100 MG TABLET Take 1 tablet by mouth once d* FLUTICASONE 100 MCG/ACTUATION* Inhale 100 mcg as instructed * ALBUTEROL SULFATE HFA 90 MCG/* Inhale 2 Puffs as instructed * ATORVASTATIN 20 MG TABLET TAKE 1 TABLET DAILY AT BEDTIM* NIACIN ER 1,000 MG TABLET,EXT* Take 2 tablets by mouth daily* OMEGA-3 FATTY ACIDS 500 MG CA* Take 1 capsule by mouth once * COMPOUNDED PRESCRIPTION Wrist cock-up splints One * ASPIRIN 325 MG TABLET Take 325 mg by mouth once julian* BLOOD SUGAR DIAGNOSTIC STRIPS Test blood sugar(s) one times* LANCETS Test blood sugar(s) one times* Medication notes this encounter ALBUTEROL SULFATE HFA 90 MCG/ACTUATION AEROSOL INHALER >> Faiza Celis Ma 10/09/2017 1:16 PM >> FAIZA CELIS MA SatOct 09, 2017 1:16 PM Problem List As Of Date 10/09/2017 Noted Resolved Dyslipidemia [E78.5] INVALID FOR* Priority: A Diabetic eye exam (HCC) [Z01.00, E11.9] INVALID FOR* Priority: A More... Well adult exam [Z00.00] INVALID FOR* Priority: E More... Special screening for malignant neoplasms, colo*INVALID FOR*06/18/2014 Deviated nasal septum [J34.2] INVALID FOR* Priority: B Carpal tunnel syndrome, bilateral [G56.03] INVALID FOR* Priority: D Prostate cancer screening [Z12.5] INVALID FOR* Colon cancer screening [Z12.11] INVALID FOR* Type 2 diabetes mellitus without complication, *INVALID FOR* Priority: A More... Elevated blood pressure reading without diagnos*INVALID FOR* Chronic obstructive pulmonary disease (HCC) [J4*INVALID FOR* Priority: A Pain of left hip joint [M25.552] INVALID FOR* Priority: M Ex-smoker [Z87.891] INVALID FOR* Priority: C More... MCL (mantle cell lymphoma) (HCC) [C83.10] INVALID FOR* Priority: B More... Anxiety and depression [F41.9, F32.9] INVALID FOR* Encounter Status:Closed by HE CASTRO DO, V on 10/09/17 PROGRESS Observed: 10/09/2017 Status: COMPLETED Source: [place] 1:19 PM [facility] REPOSITORY HNO ID: [id number] Author: Faiza Celis Ma Service: (none) Author Type: (none) Type: Progress Notes Filed: 10/09/2017 1:45 PM Note Text: Fluid, vaporizer, acetaminophen. AMB ROOMING INTAKE FLOWSHEET DATA Risk Screening Do you have concerns about personal safety or safety in the home?: No Pain Pain Score: 2/10 Pain Location: Hip-Left Description: Dull Duration Amount of Time: (Ongoing) Frequency: Intermittent (When getting in and out of the car, up from a seated postition) Intervention: Medication Patient states he left hip pain has been increasing. Hip is painful getting in and out of the car. Hurts to get up from a seated position. Taking Mobic for the pain and does help. CNCO Observed: 10/07/2017 Status: COMPLETED Source: [place] 12:00 AM [facility] REPOSITORY Letter Text Srini Junior [address] [place] [id number] 10/07/2017 [facility] #: [id number] Dear , Due to a change in the provider's schedule it has been necessary to reschedule your Appointment. Your original appointment was scheduled for 12/18/17 at 8:20 AM with Mario Wolfe MD. Please contact our office at [phone]. Thank you for choosing the [facility] as your Healthcare Provider . Sincerely, Family Medicine Appointment Office OBSOLETE Observed: 07/29/2017 Status: COMPLETED Source: [place] 12:00 AM [facility] REPOSITORY Refill (FAMPWS) SRINI JUNIOR ([id number]) 1955 M Date Time Provider Department 07/29/17 MARIO WOLFE During your visit today, we recorded the following information about you: Allergies As of Date: 07/29/2017 (No Known Allergies) Date Reviewed: 06/18/2017 Reviewed by: Mario Wolfe - Fully Assessed Reason for Visit: Refill Request [94] Prescriptions as of 07/29/2017 Sig: MELOXICAM 15 MG TABLET TAKE 1 TABLET BY MOUTH ONCE D* FENOFIBRATE NANOCRYSTALLIZED * Take 1 tablet by mouth once d* LISINOPRIL 10 MG TABLET Take 1 tablet by mouth once d* METFORMIN 500 MG TABLET Take 2 tablets by mouth twice* SERTRALINE 100 MG TABLET TAKE 1 TABLET BY MOUTH ONCE D* FLOVENT DISKUS 100 MCG/ACTUAT* INHALE 100 MCG INSTRUCTED * ALBUTEROL SULFATE HFA 90 MCG/* Inhale 2 Puffs as instructed * ATORVASTATIN 20 MG TABLET TAKE 1 TABLET DAILY AT BEDTIM* NIACIN ER 1,000 MG TABLET,EXT* Take 2 tablets by mouth daily* OMEGA-3 FATTY ACIDS 500 MG CA* Take 1 capsule by mouth once * COMPOUNDED PRESCRIPTION Wrist cock-up splints One * ASPIRIN 325 MG TABLET Take 325 mg by mouth once julian* BLOOD SUGAR DIAGNOSTIC STRIPS Test blood sugar(s) one times* LANCETS Test blood sugar(s) one times* Problem List As Of Date 07/29/2017 Noted Resolved Dyslipidemia [E78.5] INVALID FOR* Priority: A Diabetic eye exam (HCC) [E11.9, Z01.00] INVALID FOR* Priority: A More... Well adult exam [Z00.00] INVALID FOR* Priority: E More... Special screening for malignant neoplasms, colo*INVALID FOR*06/18/2014 Deviated nasal septum [J34.2] INVALID FOR* Priority: B Carpal tunnel syndrome, bilateral [G56.03] INVALID FOR* Priority: D Prostate cancer screening [Z12.5] INVALID FOR* Colon cancer screening [Z12.11] INVALID FOR* Type 2 diabetes mellitus without complication, *INVALID FOR* Priority: A More... Elevated blood pressure reading without diagnos*INVALID FOR* Chronic obstructive pulmonary disease (HCC) [J4*INVALID FOR* Priority: A Pain of left hip joint [M25.552] INVALID FOR* Priority: M Ex-smoker [Z87.891] INVALID FOR* Priority: C More... MCL (mantle cell lymphoma) (HCC) [C83.10] INVALID FOR* Priority: B More... Anxiety and depression [F41.8] INVALID FOR* Encounter Status:Closed by KAREN PRECIADO MA on 07/29/17 OBSOLETE Observed: 07/04/2017 Status: COMPLETED Source: [place] 12:00 AM [facility] REPOSITORY Refill (UC) SRINI JUNIOR ([id number]) 1955 M Date Time Provider Department 07/04/17 HE CASTRO During your visit today, we recorded the following information about you: Karishma Catalan MA 07/04/2017 10:21 AM Signed Patient has been identified by name and date of : Yes RX INSTRUCTIONS: Patient aware RX will be sent to pharmacy. No need to notify patient. Last visit, 06/18/17 Future visit, 12/18/17 Last filled, 03/12/17 30 with 2 Karishma Catalan MA Allergies As of Date: 07/04/2017 (No Known Allergies) Date Reviewed: 06/18/2017 Reviewed by: Mario Wolfe - Fully Assessed Reason for Visit: Refill Request [94] Order(s):meloxicam (MOBIC) 15 mg tabletTAKE 1 TABLET BY MOUTH ONCE DAILY. WITH FOOD.Disp: 30 tabletRfl: 2 Prescriptions as of 07/04/2017 Sig: MELOXICAM 15 MG TABLET TAKE 1 TABLET BY MOUTH ONCE D* FENOFIBRATE NANOCRYSTALLIZED * Take 1 tablet by mouth once d* LISINOPRIL 10 MG TABLET Take 1 tablet by mouth once d* METFORMIN 500 MG TABLET Take 2 tablets by mouth twice* SERTRALINE 100 MG TABLET TAKE 1 TABLET BY MOUTH ONCE D* FLOVENT DISKUS 100 MCG/ACTUAT* INHALE 100 MCG INSTRUCTED * ALBUTEROL SULFATE HFA 90 MCG/* Inhale 2 Puffs as instructed * ATORVASTATIN 20 MG TABLET TAKE 1 TABLET DAILY AT BEDTIM* NIACIN ER 1,000 MG TABLET,EXT* Take 2 tablets by mouth daily* OMEGA-3 FATTY ACIDS 500 MG CA* Take 1 capsule by mouth once * COMPOUNDED PRESCRIPTION Wrist cock-up splints One * ASPIRIN 325 MG TABLET Take 325 mg by mouth once julian* BLOOD SUGAR DIAGNOSTIC STRIPS Test blood sugar(s) one times* LANCETS Test blood sugar(s) one times* Problem List As Of Date 07/04/2017 Noted Resolved Dyslipidemia [E78.5] INVALID FOR* Priority: A Diabetic eye exam (HCC) [E11.9, Z01.00] INVALID FOR* Priority: A More... Well adult exam [Z00.00] INVALID FOR* Priority: E More... Special screening for malignant neoplasms, colo*INVALID FOR*06/18/2014 Deviated nasal septum [J34.2] INVALID FOR* Priority: B Carpal tunnel syndrome, bilateral [G56.03] INVALID FOR* Priority: D Prostate cancer screening [Z12.5] INVALID FOR* Colon cancer screening [Z12.11] INVALID FOR* Type 2 diabetes mellitus without complication, *INVALID FOR* Priority: A More... Elevated blood pressure reading without diagnos*INVALID FOR* Chronic obstructive pulmonary disease (HCC) [J4*INVALID FOR* Priority: A Pain of left hip joint [M25.552] INVALID FOR* Priority: M Ex-smoker [Z87.891] INVALID FOR* Priority: C More... MCL (mantle cell lymphoma) (HCC) [C83.10] INVALID FOR* Priority: B More... Anxiety and depression [F41.8] INVALID FOR* Prescriptions ordered this encounter Disp Refills Start End MELOXICAM 15 MG TABLET 30 t* 2 07/04/2017 Sig: TAKE 1 TABLET BY MOUTH ONCE DAILY. WITH FOOD. Medications Discontinued During This Encounter meloxicam (MOBIC) 15 mg tablet 30 t* 2 03/12/2017 07/04/2017 Route: ORAL Sig: Take 1 tablet by mouth once daily. With food. Disc: Reason for discontinue is not on file. Encounter Status:Closed by WEI JACINTO MD on 07/04/17 ALLERGIES ALLERGIES DATE TYPE / CODE NAME / CODE REACTION SEVERITY SOURCE 12/24/2013 Drug No Known Unknown [facility] Allergy/416 Allergies/X84146 [facility] 621848(SNOM 0388(RXNORM) Repository ED CT) Drug NO KNOWN [facility] Class/52090 ALLERGIES [place] 1003(SNOMED Repository CT) ENCOUNTERS ENCOUNTERS ADMIT/DISCHARGE ACCOUNT ADMITTING ENCOUNTER LOCATION SOURCE NUMBER CLASS 06/17/2018 [id number] [facility] ing:LABSPEC Repository 06/12/2018 [id number] [facility] ing:RAD Repository 06/10/2018/06/11/20 [id number] [place] Repository 06/10/2018/06/11/20 [id number] Ambulatory [address] [place] Repository 06/07/2018 [id number] [facility] ing:LAB Repository 03/12/2018/03/13/20 [id number] Ambulatory [address] [place] Repository 03/08/2018/03/08/20 [id number] Ambulatory [address] [place] Repository 12/23/2017/12/25/19 [id number] Ambulatory [address] [place] Repository 12/14/2017/12/15/19 [id number] Ambulatory [address] [place] Repository 10/25/2017/10/26/19 [id number] Ambulatory [address] [place] Repository 10/09/2017/10/10/19 [id number] Ambulatory [address] [place] Repository 10/09/2017/10/11/19 [id number] Ambulatory [address] Repository PAYERS PAYERS ENCOUNTER GUARANTOR PAYER SUBSCRIBER SOURCE 06/17/2018 SRINI R Primary SRINI R Saurav [id number] SANDRA Insurance:MEDICAL CHUPPDOB[facility] [id number] [address]Xri: (330) Number: Repository [phone] () [id number] Date:[id number] [address]OK: 06/17/2018 Secondary NOT GIVENUNK Saurav Insurance:SELF PAY [facility] Number: Effective Repository Date:2018-06-17 06/12/2018 SRINI R Primary SRINI R Saurav [id number] SANDRA Insurance:MEDICAL CHUPPDOB: [facility] [id number] [address]Xvw: (330) Number: Repository [phone] () [id number] Date:[id number] [address] [place] [id number]: 06/12/2018 Secondary NOT GIVENUNK Saurav Insurance:SELF PAY [facility] Number: Effective Repository Date:2018-06-12 06/07/2018 Srini R Primary Srini R [facility] [id number] Sandra Insurance:MEDICAL ChuppDOB: [id number] [address] Number: Repository [id number] () Date:[id number] [address] [place] [id number]: 06/07/2018 Secondary NOT GIVENUNK Saurav Insurance:SELF PAY [facility] Number: Effective Repository Date:2018-06-07
== END ==
PROVIDERS: Family Provider Family Medicine; PCP Family Medicine; Referring Provider Physician Assistant; Visit Provider Physician Assistant
DX: Z01.810 Encounter for preprocedural cardiovascular examination (principal)
CPT/HCPCS: 36415; 80048; 83036; 85027

== ENCOUNTER → 2018-06-12 16:59 | Outpatient (CLI) | payer OTHER, SELFPAY ==
[2013-12-24 18:17] VITALS: BMI 36.3
--- NOTE | 2018-06-12 17:23 | RAD_ITS ---
STUDY: X-RAY CHEST REASON FOR EXAM: Male, 62 years old. Preoperative evaluation. TECHNIQUE: PA and lateral views of the chest. COMPARISON: Comparison is made with prior study dated October 09, 2004. FINDINGS: Hyperinflation. Scattered calcified granulomas. No acute abnormality is seen. There is no demonstrated pleural abnormality. Normal size heart. Normal mediastinum and jackson. Normal visualized pulmonary arteries. There is atherosclerotic tortuosity of the aortic arch and descending thoracic aorta. There are diffuse degenerative changes of the visualized thoracic spine. Normal visualized ribs, clavicles, and shoulders. There is no demonstrated abnormality of the visualized soft tissue structures of the upper abdomen. RAD/Chest PA and Lateral IMPRESSION: Hyperinflation. No acute abnormality is seen. Electronically Signed: Castillo Nieto MD at 14:21 EST Tel [phone], Service support ,
== END ==
PROVIDERS: Family Provider Family Medicine; PCP Family Medicine; Referring Provider Orthopaedic Surgery; Visit Provider Orthopaedic Surgery
DX: Z01.811 Encounter for preprocedural respiratory examination (principal)
CPT/HCPCS: 71046

== ENCOUNTER → 2018-06-17 15:46 | Outpatient (CLI) | payer OTHER, SELFPAY ==
[2013-12-24 18:17] VITALS: BMI 36.3
--- NOTE | 2018-06-17 09:00 | HIP_PTH ---
PATIENT: SRINI DESIR LOC: [facility] U#:[id number] AGE/SX: 69/M ROOM: RE06/17/[address]: Dr. Atilio Lindsay MD : 1955 BED: DIS: SPEC #: [id number] RECD: 06/17/18 15:15 STATUS: EDDI BABATUNDE #: [id number] RISHI: 06/17/18 09:[address]: Atilio Lindsay DEPT: SURGICAL PATHOLOGY RECD BY: Parish Davenport ENTERED: 06/18/18 08:34 SP TYPE: TOTAL HIP OTHR DR: Dr. Sebastian Del Rio MD [facility] Tissues: Hip, NOS Procedures: Decalcification bone/plaque Surgery Specimen Level IV HEADER OPERATION: Left total hip arthroplasty PRE-OP DIAGNOSIS: Primary osteoarthritis left hip TISSUE SUBMITTED: Bone left hip MICROSCOPIC DIAGNOSIS Bone and soft tissue of left hip, total hip resection: Degenerative joint disease. Trilineage hematopoiesis with no pathologic change. AM:yassine 06/23/18 MICROSCOPIC DESCRIPTION Slides are reviewed. GROSS DESCRIPTION Received is one container designated bone and soft tissue, left femoral head. The specimen consists of a domingo femoral head with portion of femoral neck. The femoral head measures 4.5 x 4.5 x 4.5 cm and the femoral neck measures up to 2 cm in length. The articular surface displays prominent osteophyte formation, eburnation and bone erosion. Also present in the specimen container are multiple irregular fragments of bone reamings and pink-yellow soft tissue measuring in aggregate 10 x 10 x 4 cm. [employer] sections are submitted in two cassettes as follows: 1 - soft tissue, 2 - bone after decalcification. / SJ:yassine 06/17/18 TC:5 [facility]: [id number], [id number]
--- OUTSIDE RECORDS SUMMARY | 2018-08-03 23:05 | XMS RPT_ITS ---
[...] 06/10/2018 Active Encounter for other NA Active [facility] pre[facility]cedural [facility] Main examination / [place] Z01.818(ICD-10) Repository 06/07/2018 Unknown Z01.810 - Encounter Kasie Marcos Active [facility] for preprocedural [facility] examination / Repository Z01.810(ICD-10) 03/08/2018 Active Encounter for NA Active [facility] screening for Clinic Main malignant neoplasm [place] of prostate / Repository Z12.5(ICD-10) 12/01/2015 Active Type 2 diabetes NA Active [facility] mellitus without Clinic Main complications / [place] E11.9(ICD-10) Repository 11/25/2013 Active Hyperlipidemia, NA Active [facility] unspecified / Clinic Main E78.5(ICD-10) [place] Repository 10/09/2017 Active Unspecified disorder NA Active [facility] of synovium and Clinic Main tendon, left thigh / [place] M67.952(ICD-10) Repository 10/09/2017 Active Unknown / HE CASTRO Active [facility] UNK(Unknown) Clinic Main [place] Repository PROCEDURES PROCEDURES No Procedure Records FoundRESULTS RESULTS OBSOLETE Observed: 07/29/2018 Status: COMPLETED Source: [place] 12:00 AM CLINIC MAIN CAMPUS REPOSITORY Refill (FAMPWS) SRINI JUNIOR ([id number]) 1955 Date Time Provider Department 07/29/18 MARIO WOLFE FAMPASHER During your visit today, we recorded the following information about you: Radha Matta Ma 07/29/2018 2:45 PM Signed Patient last visit with PCP 06/10/2018 Follow up appointment scheduled 09/10/2018 Radha Wolfe MD 07/29/2018 6:10 PM Signed The following approved medication requests have been transmitted electronically. Signed Prescriptions Disp Refills lisinopril (ZESTRIL, PRINIVIL) 10 mg tablet 90 tablet 1 Sig: Take 1 tablet by mouth once daily. ARTHUR: No Authorizing Provider: MARIO WOLFE atorvastatin (LIPITOR) 20 mg tablet 90 tablet 1 Sig: TAKE 1 TABLET DAILY AT BEDTIME FOR CHOLESTEROL ARTHUR: No Authorizing Provider: MARIO WOLFE Fluticasone Propionate (FLOVENT DISKUS) 100 mcg/actuation dsdv 3 Inhaler 1 Sig: USE 1 INHALATION INSTRUCTED TWICE DAILY ARTHUR: No Authorizing Provider: MARIO WOLFE MD Allergies As of Date: 07/29/2018 (No Known Allergies) Date Reviewed: 06/10/2018 Reviewed by: Mario Wolfe - Fully Assessed Reason for Visit: Refill Request [94] Order(s):lisinopril (ZESTRIL, PRINIVIL) 10 mg tabletTake 1 tablet by mouth once daily.Disp: 90 tabletRfl: 1 atorvastatin (LIPITOR) 20 mg tabletTAKE 1 TABLET DAILY AT BEDTIME FOR CHOLESTEROLDisp: 90 tabletRfl: 1 Fluticasone Propionate (FLOVENT DISKUS) 100 mcg/actuation dsdvUSE 1 INHALATION INSTRUCTED TWICE DAILYDisp: 3 InhalerRfl: 1 Prescriptions as of 07/29/2018 Sig: LISINOPRIL 10 MG TABLET Take 1 tablet by mouth once d* ATORVASTATIN 20 MG TABLET TAKE 1 TABLET DAILY AT BEDTIM* FLUTICASONE 100 MCG/ACTUATION* USE 1 INHALATION INSTRUCTE* SERTRALINE 100 MG TABLET Take 1 tablet by mouth once d* NIACIN ER 1,000 MG TABLET,EXT* Take 2 tablets by mouth daily* METFORMIN 500 MG TABLET Take 2 tablets by mouth twice* FENOFIBRATE NANOCRYSTALLIZED * Take 1 tablet by mouth once d* MELOXICAM 15 MG TABLET TAKE 1 TABLET DAILY LANCETS [...] once julian* Problem List As Of Date 07/29/2018 Noted Resolved Dyslipidemia [E78.5] INVALID FOR* Diabetic [...] ordered this encounter Disp Refills Start End LISINOPRIL 10 MG TABLET 90 t* 1 07/29/2018 Route: ORAL Sig: Take 1 tablet by mouth once daily. ATORVASTATIN 20 MG TABLET 90 t* 1 07/29/2018 Sig: TAKE 1 TABLET DAILY AT BEDTIME FOR CHOLESTEROL FLUTICASONE 100 MCG/ACTUATION BLISTE* 3 In* 1 07/29/2018 Sig: USE 1 INHALATION INSTRUCTED TWICE DAILY Medications Discontinued During This Encounter lisinopril (ZESTRIL, PRINIVIL) 10 mg* 90 t* 1 01/30/2018 07/29/2018 Sig: TAKE 1 TABLET DAILY Disc: Reason for discontinue is not on file. atorvastatin (LIPITOR) 20 mg tablet 90 t* 1 01/30/2018 07/29/2018 Sig: TAKE 1 TABLET DAILY AT BEDTIME FOR CHOLESTEROL Disc: Reason for discontinue is not on file. FLOVENT DISKUS 100 mcg/actuation dsdv 3 In* 1 01/30/2018 07/29/2018 Sig: USE 1 INHALATION INSTRUCTED TWICE DAILY Disc: Reason for discontinue is not on file. Encounter Status:Closed by MARIO WOLFE on 07/29/18 INITAL EVALUATION (1) Observed: 07/25/2018 Status: F Source: [place] - PT 9:28 AM [facility] REPOSITORY [facility] [address] [place] [address] / REHABILITATION SERVICES INITIAL EVALUATION MR#: [id number] Acct: [id number] Name: SRINI JUNIOR Rep #: [id number] : 1955 62 From: Dominic Bradshaw PT, Cert. MDT, OCS Referring Dr.: Atilio Lindsay MD Status: REG RCR Insurance: [facility] SELF PAY INSURANCE Patient's Visit Information SRINI JUNIOR is a 62 year old M referred to Physical Therapy by Atilio Lindsay MD with a diagnosis of PRESENCE OF LEFT ARTIFICIAL HIP JOINT ,AFTER CARE JOINT SURGERY. Date of Evaluation: 07/23/18 Physical Therapist: Dominic Bradshaw PT, Cert MDT, OCS - Visit Plan Frequency: 2x /Week Duration: 4 Weeks Plan: ROM,STRENGTHENING HIP/KNEE,GAIT AND BALANCE TRAINING. S/P THR POSTERIOR LATERAL PRECAUTIONS - Subjective Findings: This 62 y/o male presents to physical therapy with left MICHAEL on Jun done by DR Lindsay at [facility]. Patient hip pain progressive DJD of left 3 years. Patient tried PT for strengthening. Patient d/c to home same day with walker and hip precautions with posterior lateral approach. Pateint had 4 weeks [facility] PT . Patient transfered to no device. Patient pain affects some ability to sleep.. Denies parathesia/tingling.Pateint surgery affect QOL and RTW. SOCAIL:single. VOCATION: [employer]. Patient to return to Jul 30 . Patient is able to ascend/descend steps alternating with rail. - Objective POSTURE: mild foward posture. GAIT: normal oriana reciprocal pattern mild. BALANCE: good-. NEURO: denies parathesia/tingling. LEG LENGTH : 1 inch longer on left. AROM: hip flexion 90 degrees supine,hip abduction 35 degrees ,supine knee flexion 120 degrees. MMT: quads/hams 4-/5 ,hip flexion /abduction 4-/5. PROPRIOCEPTION : impaired. STAIRS: ascend/descend 12 step alternate with 2 rails. -HOMMANS - Goals Goal 1:: Indedependant with progressive strengthening Goal Time Frame: 2-4 Weeks Goal 2:: Noramailze gait patern community distances Goal Time Frame: 4-6 Weeks Goal 3:: Patient increase strength of left hip 4/5 to improve function. Goal Time Frame: 4-6 Weeks Goal 4:: Patient improve alteranting stairs alteranting no rails. Goal Time Frame: 4-6 Weeks - Rehabilitation Potential Physical Therapy Diagnosis: This patient underwent s/p MICHAEL left with decrease strength ,function and RTW Rehabilitation Potential: Good - Anticipated Interventions Patient/Client Instruction: Educate patient on: Condition, Plan of Care For the Purpose of:: To increase ROM, To improve muscle performance and motor function, To increase tolerance to activity/condition/position, To improve ability of physical actions for home/community/work/leisure, To improve gait and locomotor functions, To improve health of tissue, To increase flexibility/ROM, To improve endurance, To improve ability to perform tasks related to life management Therapeutic Exercise to Include: Strength training, Gait and locomotor training, Active ROM Comment: HIP KNEE For the Purpose of:: To increase ROM, To improve muscle performance and motor function, To improve ability to perform ADL's, To increase tolerance to activity/condition/position, To decrease level of supervision to perform tasks, To improve gait and locomotor functions, To improve health of tissue, To improve health and function, To improve ability to perform tasks related to life management Thank you for the opportunity to evaluate your patient. For Medicare and Medicare HMO plans, please review the plan of care and approve it. It will need to be FAXED BACK to us at [phone] for Medicare purposes. For Medicare only, by signing this I certify the plan of care. Please let me know if there are questions or concerns regarding this plan of care. Physician Signature: Date: <Electronically signed by Dominic Bradshaw PT, Cert. MDT, OCS> 07/25/18 0928 CC: Mario Wolfe MD; Atilio Lindsay MD RERE Signed TOTAL HIP REPLACEMENT Observed: 06/17/2018 Status: F Source: [place] 9:00 AM [facility] REPOSITORY Patient: SRINI JUNIOR : 1955 (62/M) Acct Num: [id number] Phys: Neftali DEAN,Atilio Unit Num: [id number] Loc: LABSPEC Specimen: [id number] Received: 06/17/18 - 1515 Spec Type: TOTAL HIP TISSUES 1 TISSUES: [...] aggregate 10 x 10 x 4 cm. Stuffed Casing Tier sections are submitted in two cassettes as follows: 1 - soft tissue, 2 - bone after decalcification. / SJ: yassine 06/17/18 TC:5 CPT: 96942, 49616 HEADER OPERATION: Left total hip arthroplasty PRE-OP DIAGNOSIS: Primary osteoarthritis left hip TISSUE SUBMITTED: Bone left hip MICROSCOPIC DESCRIPTION Slides are reviewed. MICROSCOPIC DIAGNOSIS Bone and soft tissue of left hip, total hip resection: Degenerative joint disease. Trilineage hematopoiesis with no pathologic change. AM:yassine 06/23/18 Signed Yossi Baird, 06/23/18 <signature on file> Performed By: #### PHIP #### [facility] [address] [place], [place], [address] CHEST PA AND LATERAL Observed: 06/12/2018 Status: F Source: [place] 5:24 PM [facility] REPOSITORY [facility] Imaging Services [address] [place] [address] Chest PA and Lateral MR#: [id number] Acct: [id number] Name: SRINI JUNIOR Rep #: [id number] : 1955 M 62 From: Castillo Nieto MD PCP: Mario Wolfe MD Status: REG CLI Study: Chest PA and Lateral Date of Exam: 06/12/18 Exam# [id number] Ordering Dr: Atilio Lindsay MD STUDY: X-RAY [...] Castillo Nieto MD at 14:21 EST Tel [phone], Service support , CC: Mario Wolfe MD; Atilio Lindsay MD Rv Detailer: Signed PROGRESS Observed: 06/10/2018 Status: COMPLETED Source: [place] 4:[address] [facility] REPOSITORY HNO ID: [id number] Author: Mario Wolfe Service: (none) Author Type: Physician Type: Progress Notes Filed: 06/10/2018 5:02 PM Note Text: Chief Complaint Patient presents with: Pre-Op Exam: hip replacement HPI Srini Junior is a 62 year old male who presents here today for Above Complaints.. Patient with left hip Arthritis and is scheduled to have left hip replacement per Dr. Lindsay [facility] on 06/17/2018. Patient with Hx of COPD, DM 2, dyslipidemia. Developed a cold sore just under a week ago on the right upper lip. Taking OTC abreva. Past medical history, appointments, medications, allergies reviewed. Previous Medical History PAST MEDICAL HISTORY Diagnosis Date - Anxiety and depression 06/18/2017 - Carpal tunnel syndrome, bilateral 09/08/2014 - COPD (chronic obstructive pulmonary disease) ([facility]) 11/25/2013 - Diabetes ([facility]) - DM type 2 (diabetes mellitus, type 2) ([facility]) 11/26/2013 - Dyslipidemia 11/25/2013 - Elevated fasting blood sugar 11/25/2013 - Lymphoma ([facility]) 11/25/2013 - Pain of left hip joint [...] 1 Inhalation as instructed three times daily. [place]-3 Fatty Acids (FISH OIL) 500 mg cap [...] COMPLETE W Observed: 06/10/2018 Status: F Source: [place] INTERPRETATION 3:48 PM [facility] REPOSITORY NAME : SRINI JUNIOR PID : [id number] : 1955 Gender : Male Race : ORD : [id number] Procedure Date : Jun 10 2018 15:48:46 [...] Test Reason : Location : 185 : [facility] Overread By : MARI ALDANA D.O. Edited By : MARI ALDANA D.O. Referred By : MAROI WOLFE Acquired by : NEREIDA ARTEAGA Observed: 06/10/2018 Status: COMPLETED Source: [place] 3:40 PM [facility] REPOSITORY Office Visit (FAMPWS) SRINI JUNIOR ([id number]) 1955 M Date Time Provider Department 06/10/18 3:40 PM MARIO WOLFE During your visit today, we [...] 09/08/2014 - COPD (chronic obstructive pulmonary disease) ([facility]) 11/25/2013 - Diabetes ([facility]) - DM type 2 (diabetes mellitus, type 2) ([facility]) 11/26/2013 - Dyslipidemia 11/25/2013 - Elevated fasting blood sugar 11/25/2013 - Lymphoma ([facility]) 11/25/2013 - Pain of left hip joint [...] 1 Inhalation as instructed three times daily. [place]-3 Fatty Acids (FISH OIL) 500 mg cap [...] Mario Wolfe MD Referring Provider: MARIO WOLFE [[id number]] Allergies As of Date: 06/10/2018 (No Known [...] Order(s):ECG COMPLETE W INTERPRETATION [ECG01] Order #: [id number] FUTURE acyclovir (ZOVIRAX) 400 mg tabletTake 1 [...] F Source: [place] NO DIFF 7:10 AM [facility] REPOSITORY TYPE CODE TESTS RESULT OUT OF [...] MPV 8.6 Performed By: #### L100.0500 #### [facility] [address] [place], [place], [address] HEMOGLOBIN A1C Collected: 06/07/2018 Status: F Source: [place] 7:10 AM [facility] REPOSITORY TYPE CODE TESTS RESULT OUT OF RANGE REFERENCE UNITS LAB L501.9985 4.2-6.3 % Normal HGB A1C 5.9 Performed By: #### L501.9985 #### [facility] [address] [place], [address] BASIC METABOLIC Collected: 06/07/2018 Status: F Source: [place] PROFILE (BMP) 7:10 AM [facility] REPOSITORY TYPE CODE TESTS RESULT OUT OF [...] GAP 10 Performed By: #### L500.2500 #### [facility] [address] [place], [address] PROGRESS Observed: 03/12/2018 Status: COMPLETED Source: [place] 3:08 PM [facility] REPOSITORY HNO ID: [id number] Author: Mario Wolfe Service: (none) Author Type: [...] hip replacement 06/17/[address] Lindsay with [facility] Past medical history, appointments, medications, allergies reviewed. Previous Medical History PAST MEDICAL HISTORY Diagnosis Date - Anxiety and depression 06/18/2017 - Carpal tunnel syndrome, bilateral 09/08/2014 - COPD (chronic obstructive pulmonary disease) ([facility]) 11/25/2013 - Diabetes ([facility]) - DM type 2 (diabetes mellitus, type 2) ([facility]) 11/26/2013 - Dyslipidemia 11/25/2013 - Elevated fasting blood sugar 11/25/2013 - Lymphoma ([facility]) 11/25/2013 - Pain of left hip joint [...] 2 tablets by mouth daily at bedtime. [place]-3 Fatty Acids (FISH OIL) 500 mg cap [...] Negative Negative Ketones, Urine Negative Negative Specific [place], Ur 1.005 - 1.030 1.027 Hemoglobin/Blood,Ur Negative [...] MD CNOV Observed: 03/12/2018 Status: COMPLETED Source: [place] 2:00 PM [facility] REPOSITORY Office Visit (FAMPWS) SRINI JUNIOR ([id number]) 1955 M Date Time Provider Department 03/12/18 2:00 PM MARIO WOLFE During your visit today, we [...] 09/08/2014 - COPD (chronic obstructive pulmonary disease) ([facility]) 11/25/2013 - Diabetes ([facility]) - DM type 2 (diabetes mellitus, type 2) ([facility]) 11/26/2013 - Dyslipidemia 11/25/2013 - Elevated fasting blood sugar 11/25/2013 - Lymphoma ([facility]) 11/25/2013 - Pain of left hip joint [...] 2 tablets by mouth daily at bedtime. [place]-3 Fatty Acids (FISH OIL) 500 mg cap [...] Negative Negative Ketones, Urine Negative Negative Specific [place], Ur 1.005 - 1.030 1.027 Hemoglobin/Blood,Ur Negative [...] to next visit. Referring Provider: MARIO WOLFE [[id number]] Allergies As of Date: 03/12/2018 (No Known [...] once daily.Disp: 90 tabletRfl: 1 HGB A1C [GMRCQ8F] Order #: [id number] FUTURE LIPID PANEL, NONFASTING [SQLIPNF] Order #: [id number] FUTURE Prescriptions as of 03/12/2018 Sig: SERTRALINE [...] ALBUMIN/CREAT RATIO Collected: 03/08/2018 Status: F Source: [place] 7:[address] [facility] REPOSITORY TYPE CODE TESTS RESULT OUT OF REFERENCE UNITS RANGE LAB UCRR 20-300 mg/dL 205.4 Creatinine,Ur ine,Ran LAB UALBR 0.0-23.0 mg/L <12.0 Albumin Urine Random LAB UALBCR 0-30 mg/g Not Albumin/Creat calculated Ratio Performed By: #### UACR #### [facility] [address] [place], [place] [address] PSA, DIAGNOSTIC Collected: 03/08/2018 Status: F Source: [place] 7:45 AM [facility] REPOSITORY TYPE CODE TESTS RESULT OUT OF REFERENCE UNITS RANGE LAB PSA 0.00-2.59 ng/mL PSA, Diagnostic 1.99 Result Comment: Total PSA test methodology used is the Electrochemiluminescence Immunoassay. Performed By: #### PSA, CMP, LIPB, HBA1C #### [facility] [address] [place], [place] [address] COMP METABOLIC PANEL Collected: 03/08/2018 Status: F Source: [place] 7:45 AM [facility] REPOSITORY TYPE CODE TESTS RESULT OUT OF REFERENCE UNITS RANGE LAB TP 6.3-8.0 g/dL Protein, Total 7.1 LAB ALB 3.9-4.9 g/dL Albumin 4.4 LAB CA 8.5-10.2 mg/dL Calcium, Total 9.6 LAB TBIL 0.2-1.3 mg/dL Bilirubin, Total 0.4 LAB ALKP 36-108 U/L Alkaline Phosphatase 37 LAB AST 14-40 U/L AST 28 LAB GLU 74-99 mg/dL Glucose High 152 Result Comment: The [place] Diabetes Association (ADA) provides guidance for cutoff [...] Standards of Medical Care in Diabetes 2016, [place] Diabetes Association. Diabetes Care. 2016.39(Suppl 1). LAB [...] HBA1C #### [facility] [address] [place], [place] [address] LIPID PANEL, BASIC Collected: 03/08/2018 Status: F Source: [place] 7:[address] [facility] REPOSITORY TYPE CODE [...] Desk Reference: National Heart, Lung, and Blood [place]. National Institutes of Health. 2001: NIH Publication No. 01-3305. 2. An International Atherosclerosis Society position paper: global recommendations for the management of dyslipidemia: executive summary, Atherosclerosis. 2014: 232(2):410-413. Performed By: #### PSA, CMP, LIPB, HBA1C #### [facility] [address] [place], [place] [address] HEMOGLOBIN A1C Collected: 03/08/2018 Status: F Source: [place] 7:45 AM [facility] REPOSITORY TYPE CODE TESTS RESULT OUT OF REFERENCE UNITS RANGE LAB HGBA1C 4.3-5.6 % Hemoglobin A1c 5.6 LAB HBA0 mg/dL Est. Average Glucose 114 Result Comment: eAG: (Estimated average glucose) is a calculated value from HgbA1c and is sales representative canvas products of the average blood glucose level in the last 2-3 month period. Performed By: #### PSA, CMP, LIPB, HBA1C #### [facility] [address] [place], [place] [id number] URINALYSIS WITH Collected: 03/08/2018 Status: F Source: [facility] 7:45 AM [facility] REPOSITORY TYPE CODE TESTS RESULT OUT OF REFERENCE UNITS RANGE LAB UCOL Yellow Color Yellow LAB [facility] Clear Clarity Clear LAB UGLUC Negative mg/dL Glucose, Urine Negative LAB UBIL Negative Bilirubin, Urine Negative LAB UKET Negative Ketones, Urine Negative LAB USPG 1.005-1.030 Specific [place], Ur 1.027 LAB UHGB Negative Hemoglobin/Blood, Negative [...] UAWMIC #### [facility] [address] [place], [place] [address] PROGRESS Observed: 12/23/2017 Status: COMPLETED Source: [place] 10:40 AM [facility] REPOSITORY HNO ID: [id number] Author: Abhay Brown Service: (none) Author Type: Physician Library Associate Type: Progress Notes Filed: 12/23/2017 11:51 AM [...] 09/08/2014 - COPD (chronic obstructive pulmonary disease) ([facility]) 11/25/2013 - Diabetes ([facility]) - DM type 2 (diabetes mellitus, type 2) ([facility]) 11/26/2013 - Dyslipidemia 11/25/2013 - Elevated fasting blood sugar 11/25/2013 - Lymphoma ([facility]) 11/25/2013 Previous Surgical History PAST SURGICAL HISTORY [...] 2 tablets by mouth daily at bedtime. [place]-3 Fatty Acids (FISH OIL) 500 mg cap [...] Abs Lymph 1.00 - 4.00 k/uL 2.49 [place]% % 8.0 Abs [place] 0.00 - 0.86 k/uL 0.75 Eosin% % 5.9 Abs Eosin 0.00 - 0.45 k/uL 0.55 (H) Baso% % 0.7 Abs Baso 0.00 - 0.10 k/uL 0.07 Nucleated Reds 0 /100 WBC 0.0 Absolute nRBC 0.00 k/uL 0.00 Diff Type Auto Diff Color Yellow Yellow Clarity Clear Clear Glucose, Urine Negative mg/dL Negative Bilirubin, Urine Negative Negative Ketones, Urine Negative Negative Specific [place], Ur 1.005 - 1.030 1.015 Hemoglobin/Blood,Ur Negative [...] complication, without long-term current use of insulin ([facility]) - ICD9: 250.00, ICD10: E11.9 (primary diagnosis) [...] Labs prior. Return sooner as needed. COLLIN MEYEROV Observed: 12/23/2017 Status: COMPLETED Source: [place] 10:40 AM [facility] REPOSITORY Office Visit (FAMPWS) SRINI JUNIOR ([id number]) 1955 M Date Time Provider Department 12/23/17 10:40 AM ROSARIO BROWN) FAMPWS During your visit today, we recorded the [...] 09/08/2014 - COPD (chronic obstructive pulmonary disease) ([facility]) 11/25/2013 - Diabetes ([facility]) - DM type 2 (diabetes mellitus, type 2) ([facility]) 11/26/2013 - Dyslipidemia 11/25/2013 - Elevated fasting blood sugar 11/25/2013 - Lymphoma ([facility]) 11/25/2013 Previous Surgical History PAST SURGICAL HISTORY [...] 2 tablets by mouth daily at bedtime. [place]-3 Fatty Acids (FISH OIL) 500 mg cap [...] Abs Lymph 1.00 - 4.00 k/uL 2.49 [place]% % 8.0 Abs [place] 0.00 - 0.86 k/uL 0.75 Eosin% % 5.9 Abs Eosin 0.00 - 0.45 k/uL 0.55 (H) Baso% % 0.7 Abs Baso 0.00 - 0.10 k/uL 0.07 Nucleated Reds 0 /100 WBC 0.0 Absolute nRBC 0.00 k/uL 0.00 Diff Type Auto Diff Color Yellow Yellow Clarity Clear Clear Glucose, Urine Negative mg/dL Negative Bilirubin, Urine Negative Negative Ketones, Urine Negative Negative Specific [place], Ur 1.005 - 1.030 1.015 Hemoglobin/Blood,Ur Negative [...] sooner as needed. Referring Provider: MARIO WOLFE [[id number]] Allergies As of Date: 12/23/2017 (No Known [...] ALBUMIN/CREAT RATIO RND UR [SQUACR] Order #: [id number] FUTURE COMP METABOLIC PANEL [SQCMP] Order #: [id number] FUTURE HGB A1C [JUPOT2B] Order #: [id number] FUTURE URINALYSIS WITH MICROSCOPIC [SQUAWMIC] Order #: [id number] FUTURE PSA/PROSTSPECAG DIAG [SQPSA] Order #: [id number] FUTURE LIPID PANEL BASIC [SQLIPB] Order #: [id number] FUTURE Prescriptions as of 12/23/2017 Sig: MELOXICAM [...] HEMOGLOBIN A1C Collected: 12/14/2017 Status: F Source: [place] 7:40 AM [facility] REPOSITORY TYPE CODE TESTS RESULT OUT OF REFERENCE UNITS RANGE LAB HGBA1C 4.3-5.6 % High Hemoglobin A1c 5.9 LAB HBA0 mg/dL Est. Average Glucose 123 Result Comment: eAG: (Estimated average glucose) is a calculated value from HgbA1c and is sales representative canvas products of the average blood glucose level in the last 2-3 month period. Performed By: #### HBA1C, LIPB #### [facility] [address] [place], [place] [address] LIPID PANEL, BASIC Collected: 12/14/2017 Status: F Source: [place] 7:40 AM [facility] REPOSITORY TYPE CODE TESTS RESULT OUT [...] Desk Reference: National Heart, Lung, and Blood [place]. National Institutes of Health. 2001: NIH Publication No. 01-3305. 2. An International Atherosclerosis Society position paper: global recommendations for the management of dyslipidemia: executive summary, Atherosclerosis. 2014: 232(2):410-413. Performed By: #### HBA1C, LIPB #### [facility] [address] [place] [id number] PROGRESS Observed: 10/25/2017 Status: COMPLETED Source: [place] 5:08 PM [facility] REPOSITORY HNO ID: [id number] Author: He Castro V Service: (none) Author [...] M.D. CNOV Observed: 10/25/2017 Status: COMPLETED Source: [place] 3:40 PM [facility] REPOSITORY Office Visit (UC) SRINI JUNIOR ([id number]) 1955 M Date Time Provider Department 10/25/17 [...] Foreman M.D. Referring Provider: HE CASTRO V [29444] Allergies As of Date: 10/25/2017 (No Known Allergies) Date Reviewed: 10/09/2017 Reviewed by: Faiza Celis Ma - Fully Assessed Reason for Visit: Established Patient [175] Cmt: 2 week 2 days post visit Left hip pain Primary Visit Diagnosis:Osteoarthritis of one hip, left [M16.12] Order(s):CONSULT TO PHYSICAL THERAPY [9032] Order #: [id number]: 1 Prescriptions as of 10/25/2017 Sig: MELOXICAM [...] 3V PELV+ Observed: 10/09/2017 Status: F Source: [place] AP/LAT LT 1:[address] [facility] REPOSITORY * * *Final Report* * * [...] Severe degenerative arthritis of the left hip. Rv Detailer: PSCOlivia Transcribe Date/Time: Oct 10 2017 9:46P Dictated by : PETR ODOM MD This examination was interpreted and the report reviewed and electronically signed by: PETR ODOM MD on Oct 10 2017 9:47PM EST [id number] PROGRESS Observed: 10/09/2017 Status: COMPLETED Source: [place] 1:46 PM [facility] REPOSITORY HNO ID: [id number] Author: Lorri Gregory (Rt) Service: (none) Author Type: General Engineer Type: Progress Notes Filed: 10/09/2017 1:55 PM [...] PM PROGRESS Observed: 10/09/2017 Status: COMPLETED Source: [place] 1:42 PM [facility] REPOSITORY HNO ID: [id number] Author: He Castro V Service: (none) Author [...] 09/08/2014 - COPD (chronic obstructive pulmonary disease) ([facility]) 11/25/2013 - Diabetes ([facility]) - DM type 2 (diabetes mellitus, type 2) ([facility]) 11/26/2013 - Dyslipidemia 11/25/2013 - Elevated fasting blood sugar 11/25/2013 - Lymphoma ([facility]) 11/25/2013 PAST SURGICAL HISTORY Procedure Laterality Date - *STRESS TEST PC 02/26/2017 normal. - COLONOSCOP W/ OR W/O [facility] SPEC 06/18/14 colonoscopy - PAST SURGICAL HISTORY [...] somatic dysfunction left hip PLAN: reviewed , st visit. Risks, benefits, alternatives and personnel discussed with patient who consents to proceed. Patient wished to proceed. 6mg celestone with 2cc, 1% lidocaine and 2cc .5% marcaine was injected. Injection was carried out under sterile conditions through a LATERAL site at greater trochanter. Patient had no immediate complications and tolerated the procedure well. He Castro DO CNOV Observed: 10/09/2017 Status: COMPLETED Source: [place] 1:20 PM [facility] REPOSITORY Office Visit () KARLEESRINI Tu ([id number]) 1955 M Date Time Provider Department 10/09/17 1:20 PM HE CASTRO During your visit today, we recorded the following information about you: Faiza Celis Bart 10/09/2017 1:45 PM Signed Fluid, vaporizer, acetaminophen. [...] 09/08/2014 - COPD (chronic obstructive pulmonary disease) ([facility]) 11/25/2013 - Diabetes ([facility]) - DM type 2 (diabetes mellitus, type 2) ([facility]) 11/26/2013 - Dyslipidemia 11/25/2013 - Elevated fasting blood sugar 11/25/2013 - Lymphoma ([facility]) 11/25/2013 PAST SURGICAL HISTORY Procedure Laterality Date [...] hip somatic dysfunction left hip PLAN: reviewed visit. Risks, benefits, alternatives and personnel discussed with patient who consents to proceed. Patient wished to proceed. 6mg celestone with 2cc, 1% lidocaine and 2cc .5% marcaine was injected. Injection was carried out under sterile conditions through a LATERAL site at greater trochanter. Patient had no immediate complications and tolerated the procedure well. 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 CNCO Observed: 10/07/2017 Status: COMPLETED Source: [place] 12:00 AM [facility] Letter Text Srini Junior [address] [place] [id number] 10/07/2017 [facility] #: [id number] Dear , Due to a change in the provider's schedule it has been necessary to reschedule your Appointment. Your original appointment was scheduled for 12/18/17 at 8:20 AM with Mario Wolfe MD. Please contact our office at [phone]. Thank you for choosing the [facility] as your Healthcare Provider . Sincerely, Family Medicine Appointment Office ALLERGIES ALLERGIES DATE TYPE / CODE NAME / CODE REACTION SEVERITY SOURCE 12/24/2013 Drug No Known Unknown [facility] Allergy/416 Allergies/E51849 Hospital 888037(SNOM 0388(RXNORM) Repository ED CT) Drug NO KNOWN [facility] Class/16327 ALLERGIES [place] 1003(SNOMED Repository CT) ENCOUNTERS ENCOUNTERS ADMIT/DISCHARGE ACCOUNT ADMITTING ENCOUNTER LOCATION SOURCE NUMBER CLASS 07/23/2018 [id number] [facility] ing:PT Repository 06/17/2018 [id number] [facility] ing:LABSPEC Repository 06/12/2018 [id number] [facility] ing:RAD Repository 06/10/2018/06/11/20 [id number] Ambulatory [address] Repository 06/10/2018/06/11/20 [id number] Ambulatory [address] Repository 06/07/2018 [id number] [facility] ing:LAB Repository 03/12/2018/03/13/20 [id number] Ambulatory [address] Repository 03/08/2018/03/08/20 [id number] Ambulatory [address] Repository 12/23/2017/12/25/19 [id number] Ambulatory [address] Repository 12/14/2017/12/15/19 [id number] Ambulatory [address] Repository 10/25/2017/10/26/19 [id number] Ambulatory [address] Repository 10/09/2017/10/10/[id number] Repository 10/09/2017/10/11/[id number] Repository PAYERS PAYERS ENCOUNTER GUARANTOR PAYER SUBSCRIBER SOURCE 07/23/2018 SRINI R Primary SRINI R Saurav [id number] [place] Insurance:MEDICAL [place] [facility] [id number] [facility] [address]Qde: (330) Number: Repository [phone] () [id number] Date:1426-27-74LN [place] [id number]: 07/23/2018 Secondary NOT GIVENUNK [place] Insurance:SELF PAY [facility] Number: Effective Repository Date:2018-07-21 06/17/2018 SRINI R Primary SRINI R Saurav [id number] [place] Insurance:MEDICAL CHUPPDOB[place] [facility] [id number] Hospital [address]Deu: (330) Number: Repository [phone] () [id number] Date:5385-30-51OL [place] [id number]: 06/17/2018 Secondary NOT GIVENUNK Saurav Insurance:SELF PAY [facility] Number: Effective Repository Date:2018-06-17 06/12/2018 SRINI R Primary SRINI R Saurav [id number] [place] Insurance:MEDICAL CHUPPDOB[place] [facility] [id number] [facility] [address]Wll: (330) Number: Repository [phone] () [id number] Date:7627-60-88OI [address] [address]PX: 06/12/2018 Secondary NOT GIVENUNK Saurav Insurance:SELF PAY [facility] Number: Effective Repository Date:2018-06-12 06/07/2018 Srini R Primary Srini R Saurav [id number] [place] Insurance:MEDICAL ChuppDOB: [id number] [address]Ari: Number: Repository [id number] (HP) Date:6272-43-33[address] [address]GK: 06/07/2018 Secondary NOT GIVENUNK Saurav Insurance:SELF PAY [facility]: Effective Repository Date:2018-06-07
== END ==
PROVIDERS: Family Provider Family Medicine; PCP Family Medicine; Referring Provider Orthopaedic Surgery; Visit Provider Orthopaedic Surgery
DX: M16.12 Unilateral primary osteoarthritis, left hip (principal)
CPT/HCPCS: 88305; 88311

== ENCOUNTER 2018-07-23 10:48 | Outpatient (RCR) | payer OTHER, SELFPAY ==
--- NOTE | 2018-07-23 11:55 | HP.PTEVAL ---
Patient's Visit Information SRINI DESIR is a 62 year old M referred to Physical Therapy by Atilio Lindsay MD with a diagnosis of PRESENCE OF LEFT ARTIFICIAL HIP JOINT ,AFTER CARE JOINT SURGERY. Date of Evaluation: 07/23/18 Physical Therapist: Dominic Bradshaw PT, Cert MDT, OCS - Visit Plan Frequency: 2x /Week Duration: 4 Weeks Plan: ROM,STRENGTHENING HIP/KNEE,GAIT AND BALANCE TRAINING. S/P THR POSTERIOR LATERAL PRECAUTIONS - Subjective Findings: This 62 y/o male presents to physical therapy with left MICHAEL on Jun done by DR Lindsay at [facility]. Patient hip pain progressive DJD of left 3 years. Patient tried PT for strengthening. Patient d/c to home same day with walker and hip precautions with posterior lateral approach. Pateint had 4 weeks [facility] PT . Patient transfered to no device. Patient pain affects some ability to sleep.. Denies parathesia/tingling.Pateint surgery affect QOL and RTW. SOCAIL:single. VOCATION: [employer]. Patient to return to Jul 30 . Patient is able to ascend/descend steps alternating with rail. - Objective POSTURE: mild foward posture. GAIT: normal oriana reciprocal pattern mild. BALANCE: good-. NEURO: denies parathesia/tingling. LEG LENGTH : 1 inch longer on left. AROM: hip flexion 90 degrees supine,hip abduction 35 degrees ,supine knee flexion 120 degrees. MMT: quads/hams 4-/5 ,hip flexion /abduction 4-/5. PROPRIOCEPTION : impaired. STAIRS: ascend/descend 12 step alternate with 2 rails. -ALEXMANS - Goals Goal 1:: Indedependant with progressive strengthening Goal Time Frame: 2-4 Weeks Goal 2:: Noramailze gait [facility] community distances Goal Time Frame: 4-6 Weeks Goal 3:: Patient increase strength of left hip 4/5 to improve function. Goal Time Frame: 4-6 Weeks Goal 4:: Patient improve alteranting stairs alteranting no rails. Goal Time Frame: 4-6 Weeks - Rehabilitation Potential Physical Therapy Diagnosis: This patient underwent s/p MICHAEL left with decrease strength ,function and RTW Rehabilitation Potential: Good - Anticipated Interventions Patient/Client Instruction: Educate patient on: Condition, Plan of Care For the Purpose of:: To increase ROM, To improve muscle performance and motor function, To increase tolerance to activity/condition/position, To improve ability of physical actions for home/community/work/leisure, To improve gait and locomotor functions, To improve health of tissue, To increase flexibility/ROM, To improve endurance, To improve ability to perform tasks related to life management Therapeutic Exercise to Include: Strength training, Gait and locomotor training, Active ROM Comment: HIP KNEE For the Purpose of:: To increase ROM, To improve muscle performance and motor function, To improve ability to perform ADL's, To increase tolerance to activity/condition/position, To decrease level of supervision to perform tasks, To improve gait and locomotor functions, To improve health of tissue, To improve health and function, To improve ability to perform tasks related to life management Thank you for the opportunity to evaluate your patient. For Medicare and Medicare HMO plans, please review the plan of care and approve it. It will need to be FAXED BACK to us at [phone] for Medicare purposes. For Medicare only, by signing this I certify the plan of care. Please let me know if there are questions or concerns regarding this plan of care. Physician Signature: Date:
--- OUTSIDE RECORDS SUMMARY | 2018-09-27 06:07 | XMS RPT_ITS ---
:1955 Author Organization OHIP Care Team Providers Name Role Phone MARIO WOLFE Referring Unavailable MARIO WOLFE Attending Unavailable MARIO WOLFE Referring Unavailable HILDA BROWN (PA) Referring Unavailable HILDA BROWN (PA) Attending Unavailable MARIO WOLFE Referring Unavailable MARIO WOLFE Referring Unavailable HE CASTRO Attending Unavailable HE CASTRO Referring Unavailable HE CASTRO Referring Unavailable HE CASTRO Attending Unavailable MARIO WOLFE Referring Unavailable MARIO WOLFE Attending Unavailable MARIO WOLFE Referring Unavailable Atilio Lindsay Attending Unavailable Atilio Lindsay Referring Unavailable Mario Wolfe Primary Care Unavailable Atilio Lindsay Attending Unavailable Atilio Lindsay Referring Unavailable Mario Wolfe Primary Care Unavailable Kasie Marcos Attending Unavailable Kasie Marcos Referring Unavailable Mario Wolfe Primary Care Unavailable Atilio Lindsay Attending Unavailable Lindsay, Atilio Referring Unavailable Mario Wolfe Primary Care Unavailable PROBLEMS PROBLEMS DATE TYPE CONDITION / CODE ATTENDING STATUS SOURCE 12/01/2015 Active Type 2 diabetes NA Active [place] mellitus without Clinic Main complications / [place] E11.9(ICD-10) Repository 06/10/2018 Active Encounter for other NA Active [place] preprocedural Clinic Main examination / [place] Z01.818(ICD-10) Repository 06/07/2018 Unknown Z01.810 - Encounter Kasie Marcos Active [place] for preprocedural [facility] examination / Repository Z01.810(ICD-10) 11/25/2013 Active Hyperlipidemia, NA Active [place] unspecified / Clinic Main E78.5(ICD-10) [place] Repository 03/08/2018 Active Encounter for NA [facility] screening for Clinic Main malignant neoplasm [place] of prostate / Repository Z12.5(ICD-10) 10/09/2017 Active Unspecified disorder NA Active [place] of synovium and Clinic Main tendon, left thigh / [place] M67.952(ICD-10) Repository 10/09/2017 Active Unknown / HE CASTRO Active [place] UNK(Unknown) Clinic Main [place] Repository PROCEDURES PROCEDURES No Procedure Records FoundRESULTS RESULTS OBSOLETE Observed: 07/29/2018 Status: COMPLETED Source: [place] 12:00 AM [facility] REPOSITORY Refill (FAMPWS) SRINI JUNIOR ([id number]) 1955 Date Time Provider Department 07/29/18 MARIO [...] EVALUATION (1) Observed: 07/25/2018 Status: F Source: [place] - PT 9:28 AM [facility] REPOSITORY [facility] [address] [place] [address] / REHABILITATION SERVICES INITIAL EVALUATION MR#: [id number] Acct: [id number] Name: SRINI JUNIOR Rep #: [id number] : 1955 62 From: Dominic Bradshaw PT, Cert. MDT, OCS Referring Dr.: Atilio Lindsay MD Status: REG RCR Insurance: [facility] SELF PAY INSURANCE Patient's Visit Information SRINI [...] on Jun done by DR Lindsay at [facility] Patient hip pain progressive DJD of left 3 years. Patient tried PT for strengthening. Patient d/c to home same day with walker and hip precautions with posterior lateral approach. Pateint had 4 weeks [facility] PT . Patient transfered to no device. Patient pain affects some ability to sleep.. Denies parathesia/tingling.Pateint surgery affect QOL and RTW. SOCAIL:single. 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 Patient to return to Jul 30 . [...] to be FAXED BACK to us at [phone] for Medicare purposes. For Medicare only, by [...] 06/17/2018 Status: F Source: [place] 9:00 AM [facility] REPOSITORY Patient: SRINI JUNIOR : 1955 (62/M) Acct Num: [id number] Phys: Neftali DEAN,Atilio Unit Num: [id number] Loc: LABSPEC Specimen: [id number] Received: 06/17/18 - 1515 Spec Type: TOTAL [...] aggregate 10 x 10 x 4 cm. Staple Shear Operator sections are submitted in two cassettes as follows: 1 - soft tissue, 2 - bone after decalcification. / SJ: yassine 06/17/18 TC:5 CPT: 27298, 71051 HEADER OPERATION: Left total hip arthroplasty PRE-OP DIAGNOSIS: Primary osteoarthritis left hip TISSUE SUBMITTED: Bone left hip MICROSCOPIC DESCRIPTION Slides are reviewed. MICROSCOPIC DIAGNOSIS Bone and soft tissue of left hip, total hip resection: Degenerative joint disease. Trilineage hematopoiesis with no pathologic change. AM:yassine 06/23/18 Signed Yossi Baird, 06/23/18 <signature on file> Performed By: #### PHIP #### [facility] [address] [place], [place], [id number] CHEST PA AND LATERAL Observed: 06/12/2018 Status: F Source: [place] 5:24 PM [facility] REPOSITORY [facility] Imaging Services [address] [place] [address] Chest PA and Lateral MR#: [id number] Acct: [id number] Name: SRINI JUNIOR Rep #: [id number] : 1955 M 62 From: Castillo Nieto MD PCP: Mario Wolfe MD Status: REG CLI Study: Chest PA and Lateral Date of Exam: 06/12/18 Exam# [id number] Ordering Dr: Atilio Lindsay MD STUDY: X-RAY [...] Castillo Nieto MD at 14:21 EST Tel [phone], Service support , CC: Mario Wolfe MD; Atilio Lindsay MD Court Crier: Signed PROGRESS Observed: 06/10/2018 Status: COMPLETED Source: [place] 4:00 PM [facility] REPOSITORY HNO ID: [id number] Author: Mario Wolfe Service: (none) Author Type: Physician Type: Progress Notes Filed: 06/10/2018 5:02 PM Note Text: Chief Complaint Patient presents with: Pre-Op Exam: hip replacement HPI Srini Junior is a 62 year old male who presents here today for Above Complaints.. Patient with left hip Arthritis and is scheduled to have left hip replacement per Dr. Lindsay [facility] on 06/17/2018. Patient with Hx of COPD, DM 2, dyslipidemia. Developed a cold sore just under a week ago on the right upper lip. Taking OTC abreva. Past medical history, appointments, medications, allergies reviewed. Previous Medical History PAST MEDICAL HISTORY Diagnosis Date - Anxiety and depression 06/18/2017 - Carpal tunnel syndrome, bilateral 09/08/2014 - COPD (chronic obstructive pulmonary disease) ([facility]) 11/25/2013 - Diabetes ([facility]) - DM type 2 (diabetes mellitus, type 2) ([facility]) 11/26/2013 - Dyslipidemia 11/25/2013 - Elevated fasting blood sugar 11/25/2013 - Lymphoma ([facility]) 11/25/2013 - Pain of left hip joint [...] 1 Inhalation as instructed three times daily. [place]-3 Fatty Acids (FISH OIL) 500 mg cap [...] COMPLETE W Observed: 06/10/2018 Status: F Source: [place] INTERPRETATION 3:48 PM [facility] REPOSITORY NAME : SRINI JUNIOR PID : [id number] : 1955 Gender : Male Race : ORD : [id number] Procedure Date : Jun 10 2018 15:48:46 Edit Date : Jun 14 2018 12:57:43 Diagnosis:SINUS TACHYCARDIA OTHERWISE NORMAL ECG Confirmed by MARI ALDANA D.O. ([id number]) on 06/14/2018 12:57:33 PM Ventricular Rate : 106 BPM Atrial Rate : 106 BPM P-R Interval : 154 ms QRS Duration : 92 ms Q-T Interval : 328 ms QTC Calculation(Bezet) : 435 ms P [place] : 37 degrees R [place] : 5 degrees T [place] : 40 degrees Test Reason : Location : 185 : [facility] Overread By : MARI ALDANA D.O. Edited By : MARI ALDANA D.O. Referred By : MARIO WOLFE Acquired by : NEREIDA ARTEAGA Observed: 06/10/2018 Status: COMPLETED Source: [place] 3:40 PM [facility] REPOSITORY Office Visit (FAMPWS) SRINI JUNIOR ([id number]) 1955 M Date Time Provider Department 06/10/18 [...] 09/08/2014 - COPD (chronic obstructive pulmonary disease) ([facility]) 11/25/2013 - Diabetes ([facility]) - DM type 2 (diabetes mellitus, type 2) ([facility]) 11/26/2013 - Dyslipidemia 11/25/2013 - Elevated fasting blood sugar 11/25/2013 - Lymphoma ([facility]) 11/25/2013 - Pain of left hip joint [...] 1 Inhalation as instructed three times daily. [place]-3 Fatty Acids (FISH OIL) 500 mg cap [...] Mario Wolfe MD Referring Provider: MARIO WOLFE [[id number]] Allergies As of Date: 06/10/2018 (No Known [...] Order(s):ECG COMPLETE W INTERPRETATION [ECG01] Order #: [id number] FUTURE acyclovir (ZOVIRAX) 400 mg tabletTake 1 [...] F Source: [place] NO DIFF 7:10 AM [facility] REPOSITORY TYPE CODE TESTS RESULT OUT OF [...] MPV 8.6 Performed By: #### L100.0500 #### [facility] [address] [place], [place], [address] HEMOGLOBIN A1C Collected: 06/07/2018 Status: F Source: [place] 7:10 AM [facility] REPOSITORY TYPE CODE TESTS RESULT OUT OF RANGE REFERENCE UNITS LAB L501.9985 4.2-6.3 % Normal HGB A1C 5.9 Performed By: #### L501.9985 #### [facility] [address] [place], [address] BASIC METABOLIC Collected: 06/07/2018 Status: F Source: [place] PROFILE (BMP) 7:10 AM [facility] REPOSITORY TYPE CODE TESTS RESULT OUT OF [...] GAP 10 Performed By: #### L500.2500 #### [facility] [address] [place], [address] PROGRESS Observed: 03/12/2018 Status: COMPLETED Source: [place] 3:08 PM [facility] REPOSITORY HNO ID: [id number] Author: Mario Wolfe Service: (none) Author Type: [...] hip replacement 06/17/[address] Lindsay [facility] Past medical history, appointments, medications, allergies reviewed. Previous Medical History PAST MEDICAL HISTORY Diagnosis Date - Anxiety and depression 06/18/2017 - Carpal tunnel syndrome, bilateral 09/08/2014 - COPD (chronic obstructive pulmonary disease) ([facility]) 11/25/2013 - Diabetes ([facility]) - DM type 2 (diabetes mellitus, type 2) ([facility]) 11/26/2013 - Dyslipidemia 11/25/2013 - Elevated fasting [...] 2 tablets by mouth daily at bedtime. [place]-3 Fatty Acids (FISH OIL) 500 mg cap [...] Negative Negative Ketones, Urine Negative Negative Specific [place], Ur 1.005 - 1.030 1.027 Hemoglobin/Blood,Ur Negative [...] MD CNOV Observed: 03/12/2018 Status: COMPLETED Source: [place] 2:00 PM [facility] REPOSITORY Office Visit (FAMPWS) SRINI JUNIOR ([id number]) 1955 M Date Time Provider Department 03/12/18 [...] 09/08/2014 - COPD (chronic obstructive pulmonary disease) ([facility]) 11/25/2013 - Diabetes ([facility]) - DM type 2 (diabetes mellitus, type 2) ([facility]) 11/26/2013 - Dyslipidemia 11/25/2013 - Elevated fasting blood sugar 11/25/2013 - Lymphoma ([facility]) 11/25/2013 - Pain of left hip joint [...] 2 tablets by mouth daily at bedtime. [place]-3 Fatty Acids (FISH OIL) 500 mg cap [...] Negative Negative Ketones, Urine Negative Negative Specific [place], Ur 1.005 - 1.030 1.027 Hemoglobin/Blood,Ur Negative [...] to next visit. Referring Provider: MARIO WOLFE [[id number]] Allergies As of Date: 03/12/2018 (No Known [...] once daily.Disp: 90 tabletRfl: 1 HGB A1C [QBZCK8S] Order #: [id number] FUTURE LIPID PANEL, NONFASTING [SQLIPNF] Order #: [id number] FUTURE Prescriptions as of 03/12/2018 Sig: SERTRALINE [...] ALBUMIN/CREAT RATIO Collected: 03/08/2018 Status: F Source: [place] 7:50 AM [facility] REPOSITORY TYPE CODE TESTS RESULT OUT OF REFERENCE UNITS RANGE LAB UCRR 20-300 mg/dL 205.4 Creatinine,Ur ine,Ran LAB UALBR 0.0-23.0 mg/L <12.0 Albumin Urine Random LAB UALBCR 0-30 mg/g Not Albumin/Creat calculated Ratio Performed By: #### UACR #### [facility] [address] [place], [place] [address] PSA, DIAGNOSTIC Collected: 03/08/2018 Status: F Source: [place] 7:45 AM [facility] REPOSITORY TYPE CODE TESTS RESULT OUT OF REFERENCE UNITS RANGE LAB PSA 0.00-2.59 ng/mL PSA, Diagnostic 1.99 Result Comment: Total PSA test methodology used is the Electrochemiluminescence Immunoassay. Performed By: #### PSA, CMP, LIPB, HBA1C #### [facility] [address] [place], [place] [address] COMP METABOLIC PANEL Collected: 03/08/2018 Status: F Source: [place] 7:45 AM [facility] REPOSITORY TYPE CODE TESTS RESULT OUT OF REFERENCE UNITS RANGE LAB TP 6.3-8.0 g/dL Protein, Total 7.1 LAB ALB 3.9-4.9 g/dL Albumin 4.4 LAB CA 8.5-10.2 mg/dL Calcium, Total 9.6 LAB TBIL 0.2-1.3 mg/dL Bilirubin, Total 0.4 LAB ALKP 36-108 U/L Alkaline Phosphatase 37 LAB AST 14-40 U/L AST 28 LAB GLU 74-99 mg/dL Glucose High 152 Result Comment: The [place] Diabetes Association (ADA) provides guidance for cutoff [...] Standards of Medical Care in Diabetes 2016, [place] Diabetes Association. Diabetes Care. 2016.39(Suppl 1). LAB [...] By: #### PSA, CMP, LIPB, HBA1C #### [facility] [address] [place], [place] [address] LIPID PANEL, BASIC Collected: 03/08/2018 Status: F Source: [place] 7:45 AM [facility] REPOSITORY TYPE CODE TESTS RESULT [...] Desk Reference: National Heart, Lung, and Blood [place]. National Institutes of Health. 2001: NIH Publication No. 01-3305. 2. An International Atherosclerosis Society position paper: global recommendations for the management of dyslipidemia: executive summary, Atherosclerosis. 2014: 232(2):410-413. Performed By: #### PSA, CMP, LIPB, HBA1C #### [facility] [address] [place], [place] [address] HEMOGLOBIN A1C Collected: 03/08/2018 Status: F Source: [place] 7:45 AM [facility] REPOSITORY TYPE CODE TESTS RESULT OUT OF REFERENCE UNITS RANGE LAB HGBA1C 4.3-5.6 % Hemoglobin A1c 5.6 LAB HBA0 mg/dL Est. Average Glucose 114 Result Comment: eAG: (Estimated average glucose) is a calculated value from HgbA1c and is enrollment representative of the average blood glucose level in the last 2-3 month period. Performed By: #### PSA, CMP, LIPB, HBA1C #### [facility] [place] [address] [place], [place] [id number] URINALYSIS WITH Collected: 03/08/2018 Status: F Source: [facility] 7:45 AM [facility] REPOSITORY TYPE CODE TESTS RESULT OUT OF REFERENCE UNITS RANGE LAB UCOL Yellow Color Yellow LAB [facility] Clear Clarity Clear LAB UGLUC Negative mg/dL Glucose, Urine Negative LAB UBIL Negative Bilirubin, Urine Negative LAB UKET Negative Ketones, Urine Negative LAB USPG 1.005-1.030 Specific [place], Ur 1.027 LAB UHGB Negative Hemoglobin/Blood, Negative [...] Oxalate Crystal Performed By: #### UAWMIC #### [facility] [address] [place], [place] [address] PROGRESS Observed: 12/23/2017 Status: COMPLETED Source: [place] 10:40 AM [facility] REPOSITORY HNO ID: [id number] Author: Abhay Brown Service: (none) Author Type: Physician [facility] Type: Progress Notes Filed: 12/23/2017 11:51 AM [...] 09/08/2014 - COPD (chronic obstructive pulmonary disease) ([facility]) 11/25/2013 - Diabetes ([facility]) - DM type 2 (diabetes mellitus, type 2) ([facility]) 11/26/2013 - Dyslipidemia 11/25/2013 - Elevated fasting blood sugar 11/25/2013 - Lymphoma ([facility]) 11/25/2013 Previous Surgical History PAST SURGICAL HISTORY [...] 2 tablets by mouth daily at bedtime. [place]-3 Fatty Acids (FISH OIL) 500 mg cap [...] Abs Lymph 1.00 - 4.00 k/uL 2.49 [place]% % 8.0 Abs [place] 0.00 - 0.86 k/uL 0.75 Eosin% % 5.9 Abs Eosin 0.00 - 0.45 k/uL 0.55 (H) Baso% % 0.7 Abs Baso 0.00 - 0.10 k/uL 0.07 Nucleated Reds 0 /100 WBC 0.0 Absolute nRBC 0.00 k/uL 0.00 Diff Type Auto Diff Color Yellow Yellow Clarity Clear Clear Glucose, Urine Negative mg/dL Negative Bilirubin, Urine Negative Negative Ketones, Urine Negative Negative Specific [place], Ur 1.005 - 1.030 1.015 Hemoglobin/Blood,Ur Negative [...] complication, without long-term current use of insulin ([facility]) - ICD9: 250.00, ICD10: E11.9 (primary diagnosis) [...] COLLIN MEYEROV Observed: 12/23/2017 Status: COMPLETED Source: [place] 10:40 AM [facility] REPOSITORY Office Visit (FAMPWS) SRINI JUNIOR ([id number]) 1955 M Date Time Provider Department 12/23/17 [...] 09/08/2014 - COPD (chronic obstructive pulmonary disease) ([facility]) 11/25/2013 - Diabetes ([facility]) - DM type 2 (diabetes mellitus, type 2) ([facility]) 11/26/2013 - Dyslipidemia 11/25/2013 - Elevated fasting blood sugar 11/25/2013 - Lymphoma ([facility]) 11/25/2013 Previous Surgical History PAST SURGICAL HISTORY [...] 2 tablets by mouth daily at bedtime. [place]-3 Fatty Acids (FISH OIL) 500 mg cap [...] Abs Lymph 1.00 - 4.00 k/uL 2.49 [place]% % 8.0 Abs [place] 0.00 - 0.86 k/uL 0.75 Eosin% % 5.9 Abs Eosin 0.00 - 0.45 k/uL 0.55 (H) Baso% % 0.7 Abs Baso 0.00 - 0.10 k/uL 0.07 Nucleated Reds 0 /100 WBC 0.0 Absolute nRBC 0.00 k/uL 0.00 Diff Type Auto Diff Color Yellow Yellow Clarity Clear Clear Glucose, Urine Negative mg/dL Negative Bilirubin, Urine Negative Negative Ketones, Urine Negative Negative Specific [place], Ur 1.005 - 1.030 1.015 Hemoglobin/Blood,Ur Negative [...] sooner as needed. Referring Provider: MARIO WOLFE [[id number]] Allergies As of Date: 12/23/2017 (No Known [...] ALBUMIN/CREAT RATIO RND UR [SQUACR] Order #: [id number] FUTURE COMP METABOLIC PANEL [SQCMP] Order #: [id number] FUTURE HGB A1C [LHJMX6F] Order #: [id number] FUTURE URINALYSIS WITH MICROSCOPIC [SQUAWMIC] Order #: [id number] FUTURE PSA/PROSTSPECAG DIAG [SQPSA] Order #: [id number] FUTURE LIPID PANEL BASIC [SQLIPB] Order #: [id number] FUTURE Prescriptions as of 12/23/2017 Sig: MELOXICAM [...] HEMOGLOBIN A1C Collected: 12/14/2017 Status: F Source: [place] 7:40 AM [facility] REPOSITORY TYPE CODE TESTS RESULT OUT OF REFERENCE UNITS RANGE LAB HGBA1C 4.3-5.6 % High Hemoglobin A1c 5.9 LAB HBA0 mg/dL Est. Average Glucose 123 Result Comment: eAG: (Estimated average glucose) is a calculated value from HgbA1c and is enrollment representative of the average blood glucose level in the last 2-3 month period. Performed By: #### HBA1C, LIPB #### [facility] [address] [place], [place] [address] LIPID PANEL, BASIC Collected: 12/14/2017 Status: F Source: [place] 7:40 AM [facility] REPOSITORY TYPE CODE TESTS RESULT OUT [...] Desk Reference: National Heart, Lung, and Blood [place]. National Institutes of Health. 2001: NIH Publication No. 01-3305. 2. An International Atherosclerosis Society position paper: global recommendations for the management of dyslipidemia: executive summary, Atherosclerosis. 2014: 232(2):410-413. Performed By: #### HBA1C, LIPB #### [facility] [address] [place] [id number] PROGRESS Observed: 10/25/2017 Status: COMPLETED Source: [place] 5:08 PM [facility] REPOSITORY HNO ID: [id number] Author: He Castro V Service: (none) Author [...] M.D. CNOV Observed: 10/25/2017 Status: COMPLETED Source: [place] 3:40 PM [facility] REPOSITORY Office Visit (UC) SRINI JUNIOR ([id number]) 1955 M Date Time Provider Department 10/25/17 [...] Foreman M.D. Referring Provider: HE CASTRO V [[id number]] Allergies As of Date: 10/25/2017 (No Known Allergies) Date Reviewed: 10/09/2017 Reviewed by: Faiza Celis Ma - Fully Assessed Reason for Visit: Established Patient [175] Cmt: 2 week 2 days post visit Left hip pain Primary Visit Diagnosis:Osteoarthritis of one hip, left [M16.12] Order(s):CONSULT TO PHYSICAL THERAPY [9032] Order #: [id number]: 1 Prescriptions as of 10/25/2017 Sig: MELOXICAM [...] 3V PELV+ Observed: 10/09/2017 Status: F Source: [place] AP/LAT LT 1:55 PM [facility] REPOSITORY * * *Final Report* * [...] Severe degenerative arthritis of the left hip. Court Crier: PSCOlivia Transcribe Date/Time: Oct 10 2017 9:46P Dictated by : PETR ODOM MD This examination was interpreted and the report reviewed and electronically signed by: PETR ODOM MD on Oct 10 2017 9:47PM EST [id number] PROGRESS Observed: 10/09/2017 Status: COMPLETED Source: [place] 1:46 PM [facility] REPOSITORY HNO ID: [id number] Author: Lorri Gregory (Rt) Service: (none) Author Type: First Aid Instructor Type: Progress Notes Filed: 10/09/2017 1:55 PM [...] PM PROGRESS Observed: 10/09/2017 Status: COMPLETED Source: [place] 1:42 PM [facility] REPOSITORY HNO ID: [id number] Author: He Castro V Service: (none) Author [...] 09/08/2014 - COPD (chronic obstructive pulmonary disease) ([facility]) 11/25/2013 - Diabetes ([facility]) - DM type 2 (diabetes mellitus, type 2) ([facility]) 11/26/2013 - Dyslipidemia 11/25/2013 - Elevated fasting blood sugar 11/25/2013 - Lymphoma ([facility]) 11/25/2013 PAST SURGICAL HISTORY Procedure Laterality Date - *STRESS TEST PC 02/26/2017 normal. - COLONOSCOP W/ OR W/O [facility] SPEC 06/18/14 colonoscopy - PAST SURGICAL HISTORY [...] DO CNOV Observed: 10/09/2017 Status: COMPLETED Source: [place] 1:20 PM [facility] REPOSITORY Office Visit () KARLEESRINI Tu ([id number]) 1955 M Date Time Provider Department 10/09/17 1:20 PM HE CASTRO During your visit today, we recorded the following information about you: aFiza Celis Bart 10/09/2017 1:45 PM Signed Fluid, [...] 09/08/2014 - COPD (chronic obstructive pulmonary disease) ([facility]) 11/25/2013 - Diabetes ([facility]) - DM type 2 (diabetes mellitus, type 2) ([facility]) 11/26/2013 - Dyslipidemia 11/25/2013 - Elevated fasting blood sugar 11/25/2013 - Lymphoma ([facility]) 11/25/2013 PAST SURGICAL HISTORY Procedure Laterality Date [...] He Castro DO Referring Provider: MARIO WOLFE [[id number]] Allergies As of Date: 10/09/2017 (No Known Allergies) Date Reviewed: 10/09/2017 Reviewed by: Faiza Celis Ma - Fully Assessed Reason for Visit: Established Patient [175] Cmt: 7 months post visit left hip pain Primary Visit Diagnosis: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 CNCO Observed: 10/07/2017 Status: COMPLETED Source: [place] 12:00 AM [facility] REPOSITORY Letter Text Srini Junior [address] [place] [id number] 10/07/2017 [facility] #: [id number] Dear , Due to a change in the provider's schedule it has been necessary to reschedule your Appointment. Your original appointment was scheduled for 12/18/17 at 8:20 AM with Mario Wlofe MD. Please contact our office at [phone]. Thank you for choosing the [facility] as your Healthcare Provider . Sincerely, Family Medicine Appointment Office ALLERGIES ALLERGIES DATE TYPE / CODE NAME / CODE REACTION SEVERITY SOURCE 12/24/2013 Drug No Known Unknown [facility] [place] [facility] Allergy/416 Allergies/Y25088 Hospital 491205(SNOM 0388(RXNORM) Repository ED CT) Drug NO KNOWN [facility] Class/83315 ALLERGIES Main [place] 1003(SNOMED Repository CT) ENCOUNTERS ENCOUNTERS ADMIT/DISCHARGE ACCOUNT ADMITTING ENCOUNTER LOCATION SOURCE NUMBER CLASS 07/23/2018 [id number] [facility] ing:PT Repository 06/17/2018 [id number] [facility] ing:LABSPEC Repository 06/12/2018 [id number] [facility] ing:RAD Repository 06/10/2018/06/11/20 [id number] Ambulatory [address] Repository 06/10/2018/06/11/20 [id number] Ambulatory [address] Repository 06/07/2018 [id number] [facility] ing:LAB Repository 03/12/2018/03/13/20 [id number] Ambulatory [address] Repository 03/08/2018/03/08/20 [id number] Ambulatory [address] Repository 12/23/2017/12/25/19 [id number] Ambulatory [address] Repository 12/14/2017/12/15/19 [id number] Ambulatory [address] Repository 10/25/2017/10/26/19 [id number] Ambulatory [address] Repository 10/09/2017/10/10/[id number] Repository 10/09/2017/10/11/[id number] Repository PAYERS PAYERS ENCOUNTER GUARANTOR PAYER SUBSCRIBER SOURCE 07/23/2018 SRINI R Primary SRINI R Saurav [id number] SANDRA Insurance:MEDICAL CHUPPDOB[facility] [id number] [address]Dod: (330) Number: Repository [phone] () [id number] Date:[id number] [place] [id number]: 07/23/2018 Secondary NOT GIVENUNK [place] Insurance:SELF PAY [facility] Number: Effective Repository Date:2018-07-21 06/17/2018 SRINI R Primary SRINI R Saurav [id number] SANDRA Insurance:MEDICAL CHUPPDOB: [facility] [place] [id number] [facility] [address]Nbk: [phone]) Number: Repository [phone] () [id number] Date:[id number] [place] [id number]: 06/17/2018 Secondary NOT GIVENUNK Saurav Insurance:SELF PAY [facility] Number: Effective Repository Date:2018-06-17 06/12/2018 SRINI R Primary SRINI R Saurav [id number] SANDR[place] Insurance:MEDICAL CHUPPDOB: [facility] [place] [id number] Hospital [address]Yno: (330) Number: Repository [phone] () [id number] Date:[id number] [address] [address]KJ: 06/12/2018 Secondary NOT GIVENUNK Saurav Insurance:SELF PAY [facility] Number: Effective Repository Date:2018-06-12 06/07/2018 Srini R Primary Srini R Saurav [id number] Sandra Insurance:MEDICAL ChuppDOB: [id number] [address]in: Number: Repository [id number] (HP) Date:7837-70-25KQ [address] [address]JO: 06/07/2018 Secondary NOT GIVENUNK Saurav Insurance:SELF PAY [facility] Number: Effective Repository Date:2018-06-07
--- NOTE | 2018-10-09 09:23 | HP.PT.NRP ---
HP - Discharge Summary (1) - Patient Information SRINI DESIR was seen in my office for initial evaluation on 07/23/18. The following Plan of Care was established for this patient: Initial Frequency: 2x /Week Initial Duration: 4 Weeks - Anticipated Interventions Patient/Client Instruction: Educate patient on: Condition, Plan of Care For the Purpose of:: To increase ROM, To improve muscle performance and motor function, To increase tolerance to activity/condition/position, To improve ability of physical actions for home/community/work/leisure, To improve gait and locomotor functions, To improve health of tissue, To increase flexibility/ROM, To improve endurance, To improve ability to perform tasks related to life management Therapeutic Exercise to Include: Strength training, Gait and locomotor training, Active ROM For the Purpose of:: To increase ROM, To improve muscle performance and motor function, To improve ability to perform ADL's, To increase tolerance to activity/condition/position, To decrease level of supervision to perform tasks, To improve gait and locomotor functions, To improve health of tissue, To improve health and function, To improve ability to perform tasks related to life management This patient was last seen in our office . Pertinent comments regarding their Physical therapy will appear below: Patient seen for intial PT Emily only At this point I will be discontinuing this patient from physical therapy. I would be happy to see this patient again in the future if found appropriate by the physician. Thank you! Dominic Bradshaw, PT, Cert MDT, OCS
== END 2018-07-23 19:00 | disposition home or self-care (01) ==
LOC: PT 10:48
PROVIDERS: Family Provider Family Medicine; PCP Family Medicine; Referring Provider Orthopaedic Surgery; Visit Provider Orthopaedic Surgery
DX: Z96.642 Presence of left artificial hip joint (principal); Z47.1 Aftercare following joint replacement surgery
CPT/HCPCS: 97110; 97161

== ENCOUNTER 2020-07-27 00:23 | Inpatient (IN) | payer OTHER, SELFPAY ==
[2020-07-27] VITALS (10 sets, daily range): BP systolic 97–145; BP diastolic 64–87; PULSE 79–106; RESP 16–30; TEMP 36.3–36.8; O2SAT 94–97; BMI 34.5; BMI 33.8
--- NOTE | 2020-07-27 00:29 | RAD_ITS ---
STUDY: X-RAY CHEST REASON FOR EXAM: Male, 64 years old. pt started getting sob tonight, covid pos on the , pulse ox at home 77% tonight TECHNIQUE: AP COMPARISON: 06/12/2018 FINDINGS: The lungs demonstrate interval development of patchy lower lobe airspace opacities. There is no demonstrated pleural abnormality. Normal size heart. Normal mediastinum and jackson. Normal visualized pulmonary arteries. Normal visualized aortic arch and descending thoracic aorta. Normal visualized thoracic spine. Normal visualized ribs, clavicles, and shoulders. There is no demonstrated abnormality of the visualized soft tissue structures of the upper abdomen. RAD/Chest 1 View (Portable) IMPRESSION: Patchy bibasilar lung airspace opacities concerning for underlying pneumonia. Electronically Signed: Nir Palacios MD at 1:04 EST Tel , Service support ,
--- NOTE | 2020-07-27 00:29 | EKG12_ITS ---
Test Reason : SOB Blood Pressure : / mmHG Vent. Rate : 102 BPM Atrial Rate : 102 BPM P-R Int : 154 ms QRS Dur : 094 ms QT Int : 336 ms P-R-T Axes : 029 007 019 degrees QTc Int : 437 ms Sinus tachycardia Otherwise normal ECG Confirmed by MIKEY DEAN, LAURIE ([id number]), manager editorial EDIE HEIN ([id number]) on 08/01/2020 12:52:19 PM Referred By: ALBERT Confirmed By:LAURIE JENSEN MD
--- NOTE | 2020-07-27 00:30 | ED.VIS.GEN ---
History of Present Illness Chief Complaint: Shortness of Breath Informant: Patient Onset: Days Context: Gradual Onset Current Severity: Moderate Maximum Severity: Moderate Narrative: Patient present secondary to shortness of breath and hypoxia. He developed cough and shortness of breath on the . He tested positive for Covid on the . Patient states he has had shortness of breath and mild cough with no sputum production at home. He denies fever or chills. He denies problems with smell or taste but has had poor p.o. intake. He has been on dexamethasone, stating he just finished a 5-day course and got a new prescription for additional steroids yesterday. Early this morning he was lying in bed and felt quite short of breath. His significant other brought the pulse ox in and his sats were reading in the 70s. He was then brought to the emergency room for evaluation. He denies chest pain. He does report a history of COPD and uses inhalers but is not on home oxygen. - Past Medical History (1) COPD (chronic obstructive pulmonary disease) Status: Chronic (2) Diabetes Status: Chronic (3) High cholesterol Status: Chronic (4) History of lymphoma Status: Chronic Past Medical History - Allergies and Home Meds Allergies/Adverse Reactions: Allergies No Known Allergies Allergy (Verified 12/24/13 18:16) Primary Care Physician: Sebastian Del Rio MD [Primary Care Provider] - Prior records reviewed: Yes Lives: Spouse/ Significant Other Smoking Status: Never smoker Review of Systems General: Denies: Chills, Fever Eyes: Denies: Visual changes - bilaterally ENT: Denies: Bilateral ear pain Cardiovascular: Denies: Chest pain Respiratory: Reports: Dyspnea, Cough. Denies: Sputum Gastrointestinal: Denies: Abdominal pain, Vomiting, Diarrhea Musculoskeletal: Denies: Swelling, Extremity Pain Skin: Denies: Rash Neurological: Denies: Headache Hematologic: Denies: Easy bruising, Easy bleeding Allergy: Denies: Uticaria Physical Exam Inital Vital Signs reviewed: Yes General: Well nourished, Well developed Head: Normocephalic Neck: Supple Cardiovascular: Regular rate, Regular rhythm Respiratory: No distress, Diminished Abdomen: Soft, Nontender Extremities: Nontender Skin: Normal color Neurological: Alert, Oriented x3 Psychological: Normal affect Diagnostic/Tx/Re-eval Chest X-Ray - ED: 1 View, Read by ED Physician, Right Infiltrate, Left Infiltrate Impressions Chest X-Ray 07/27/20 00:29 IMPRESSION: Patchy bibasilar lung airspace opacities concerning for underlying pneumonia. Electronically Signed: Nir Palacios MD at 1:04 EST Tel , Service support , Chest CTA 07/27/20 01:09 IMPRESSION: No demonstrated pulmonary embolism or arterial dissection. Diffusely scattered groundglass airspace opacities concerning for underlying infectious inflammatory process and viral pneumonia. Electronically Signed: Nir Palacios MD at 1:52 EST Tel , Service support , 07/27/20 00:29 Chest 1 View (Portable) [RAD] Stat 07/27/20 01:09 CTA Chest W/WO Contrast [CT] Stat Laboratory Results 07/27/20 07/27/20 07/27/20 00:35 00:35 00:35 WBC 5.8 RBC 4.57 L Hgb 13.9 Hct 38.2 L MCV 83.6 MCH 30.4 MCHC 36.4 H RDW Std Deviation 38.3 RDW Coeff of Alyssa 12.5 Plt Count 284 MPV 8.6 Immature Gran % (Auto) 1.000 H Neut % (Auto) 70.7 H Lymph % (Auto) 20.0 Stafford % (Auto) 7.6 Eos % (Auto) 0.2 Baso % (Auto) 0.5 Absolute Neuts (auto) 4.1 Absolute Lymphs (auto) 1.15 Nucleated RBC % 0 D-Dimer Quant (PE/DVT) 1.72 H* Sodium 133 L Potassium 3.6 Chloride 105 Carbon Dioxide 19.0 L Anion Gap 9 BUN 19 H Creatinine 1.14 Estim Creat Clear Calc 62.81 Est GFR (MDRD) Af Amer 84 Est GFR (MDRD) Non-Af 69 BUN/Creatinine Ratio 16.7 Glucose 132 H Lactic Acid Calcium 8.8 Total Bilirubin 0.70 AST 37 ALT 30 Alkaline Phosphatase 54 Troponin I < 0.015 Total Protein 7.9 Albumin 2.9 L Globulin 5.0 H Albumin/Globulin Ratio 0.6 L Procalcitonin 07/27/20 07/27/20 00:35 00:35 WBC RBC Hgb Hct MCV MCH MCHC RDW Std Deviation RDW Coeff of Alyssa Plt Count MPV Immature Gran % (Auto) Neut % (Auto) Lymph % (Auto) Stafford % (Auto) Eos % (Auto) Baso % (Auto) Absolute Neuts (auto) Absolute Lymphs (auto) Nucleated RBC % D-Dimer Quant (PE/DVT) Sodium Potassium Chloride Carbon Dioxide Anion Gap BUN Creatinine Estim Creat Clear Calc Est GFR (MDRD) Af Amer Est GFR (MDRD) Non-Af BUN/Creatinine Ratio Glucose Lactic Acid 1.2 Calcium Total Bilirubin AST ALT Alkaline Phosphatase Troponin I Total Protein Albumin Globulin Albumin/Globulin Ratio Procalcitonin 0.10 H - EKG Initial EKG Interpretation: Sinus Tachycardia - Sinus tachycardia at 102. No acute ST change. - Medical Decision Making On arrival to the emergency room patient was satting in the mid 70s. He was placed on 6 L nasal cannula and O2 sats sydni to 96%. He was able to be titrated down to 3 L nasal cannula and at this time is satting 93% on this. Patient does feel better with oxygen in place. Blood work is significant for elevated D-dimer. Chest x-ray per my interpretation does reveal bilateral infiltrates. CTA confirms bilateral infiltrates but no evidence of PE. Patient has been on Decadron but has now developed hypoxia. He will be admitted for further treatment and evaluation. ED Disposition - Plan for ED Patient: Disposition: Acute Care Hospital [facility] Diagnosis: COVID-19, Pneumonia due to COVID-19 virus, Hypoxia Referrals: Sebastian Del Rio MD [Primary Care Provider] -
[2020-07-27 00:45] LABS: Absolute Lymphocyte Count 1.15 X10^3/uL (0.83-4.51); Absolute Neutrophil Count 4.1 X10^3/uL (2.0-7.7); Basophil# 0.03 X10^3/uL; Basophil% 0.5 % (0-1); Eosinophil# 0.01 X10^3/uL; Eosinophils% 0.2 % (0-5); Hematocrit 38.2 % (40-54); Hemoglobin 13.9 g/dL (13.0-16.5); Lymphocyte # 1.15 X10^3/ul (4.0); Mean Corp Hgb Conc 36.4 g/dL (32-36); Mean Corpuscular Hgb 30.4 pg (27.0-32.0); Mean Corpuscular Volume 83.6 fL (80-94); Mean Platelet Vol. 8.6 fl (6.2-12.0); Monocyte# 0.44 X10^3/uL; Monocyte% 7.6 % (0-10); NRBC Flagged by Analyzer 0 % (0-5); Neutrophil # 4.07 X10^3/uL (2.7-7.7); Neutrophil % 70.7 % (47-70); Platelet Count 284 K/mm3 (150-450); RBC Distribution Width CV 12.5 % (11.6-14.6); RBC Distribution Width SD 38.3 fl (35.1-43.9); Red Blood Count 4.57 M/mm3 (4.6-6.2); White Blood Count 5.8 K/mm3 (4.4-11.0)
[2020-07-27 00:58] LABS: D-Dimer Quantitative (DVT/PE) 1.72 FEU/ug/m (0.27-0.49)
[2020-07-27 01:05] LABS: ALB/GLOB Ratio 0.6 RATIO (0.9-2.4); AST(SGOT) 37 U/L (15-37); Alanine Aminotransfer ALT/SGPT 30 U/L (16-61); Albumin, Serum 2.9 g/dL (3.2-5.0); Alkaline Phosphatase 54 U/L (45-117); Anion Gap 9 (5-15); BUN 19 mg/dL (7-18); BUN/Creat Ratio 16.7 RATIO (10-20); Calcium,Total 8.8 mg/dL (8.5-10.1); Chloride 105 mmol/L (98-107); Creatinine, Serum 1.14 mg/dL (0.70-1.30); EST Glomerular Filtration Rate 69 mL/min (>60); Est Glom Filt Rate - Afr Amer 84 mL/min (>60); Estimated Creatinine Clearance 62.81 ml/min; Glucose 132 mg/dL (74-106); Potassium 3.6 mmol/L (3.5-5.1); Protein, Total 7.9 g/dL (6.4-8.2); Sodium Level 133 mmol/L (136-145)
[2020-07-27 01:06] LABS: Lactic Acid 1.2 mmol/L (0.4-1.9)
--- NOTE | 2020-07-27 01:09 | CT_ITS ---
STUDY: CTA CHEST REASON FOR EXAM: Male, 64 years old. SOB,+ COVID -- HX:HTN,DIABETES,LYMPHOMA RADIATION DOSAGE (If Supplied By Facility): CTDIvol = ( 12.66 ) mGy, DLP = ( 516.78 ) mGycm TECHNIQUE: The examination was performed with the intravenous administration of IV 100mL Isovue-370. Post-processing of the angiographic images was performed, with multiplanar reformation and 3D reconstruction. Individualized dose optimization techniques were used for this CT. COMPARISON: None. FINDINGS: Normal enhancement of the main pulmonary artery and right and left pulmonary arteries. Normal enhancement of the bilateral peripheral pulmonary arteries. There is no demonstrated pulmonary embolism. Normal thoracic aorta and visualized great vessels. There is no demonstrated aortic dissection. There are calcifications of the coronary arteries. Normal mediastinum. Normal hilar regions. Normal visualized trachea and bronchi. The lungs demonstrate diffusely scattered groundglass airspace opacities Normal pleura. Normal chest wall structures. Normal osseous structures. Normal visualized upper abdomen. CT/CTA Chest W/WO Contrast IMPRESSION: No demonstrated pulmonary embolism or arterial dissection. Diffusely scattered groundglass airspace opacities concerning for underlying infectious inflammatory process and viral pneumonia. Electronically Signed: Nir Palacios MD at 1:52 EST Tel , Service support ,
--- NOTE | 2020-07-27 02:25 | HP.PCM_ITS ---
Problem List (1) COPD (chronic obstructive pulmonary disease) Status: Chronic (2) Diabetes Status: Chronic (3) High cholesterol Status: Chronic (4) History of lymphoma Status: Chronic (5) COVID-19 Status: Acute (6) Pneumonia due to COVID-19 virus Status: Acute (7) Hypoxia Status: Acute History of Present Illness Date of Admission: 07/27/20 Chief Complaint: Shortness of breath The patient is a 64 year old M with a significant history of COPD; lymphoma; and diabetes mellitus who presents to the emergency department with 11-day history of progressively worsening shortness of breath. Associated with his symptoms is coughing and anorexia. His symptoms began on July 16, 2020 and on July 18, 2019 he tested positive for Covid 19 virus. Also his has Covid. Patient reports that at the onset of his symptoms his oxygen saturation was 97% on room air. His oxygen saturation deteriorated along the line and remained stable at 93%. On the night of presentation his checked his oxygen saturation and it was 77%. Because of hypoxia his drove him to the emergency department. Reportedly he was initially prescribed a 5-day course of Decadron. Before the 5-day course would end his PCP prescribed a 5-day course of Decadron. The later 5-day course he is yet to begin. He denies any loss of taste or smell sensation. He has diarrhea. Past Medical History Past Medical History (Chronic Problems): Chronic Problems COPD (chronic obstructive pulmonary disease) (Chronic) Diabetes (Chronic) High cholesterol (Chronic) History of lymphoma (Chronic) Allergies No Known Allergies Allergy (Verified 12/24/13 18:16) Home Medications: Ambulatory Orders Medication Instructions Recorded Aspirin [Aspirin, Baby] 81 mg PO DAILY@0800 07/27/20 Atorvastatin Calcium [Lipitor] 20 mg PO QHS 07/27/20 Cholecalciferol (Vitamin D3) 125 mcg PO DAILY 07/27/20 [Vitamin D3] Dexamethasone 6 mg PO DAILY 07/27/20 Fenofibrate [Tricor] 145 mg PO DAILY 07/27/20 Fexofenadine HCl [Hazel Allergy] 180 mg PO DAILY 07/27/20 Fluticasone Propionate [Flovent 2 puff INHALATION BID 07/27/20 Diskus] Guaifenesin [Mucinex] 1,200 mg PO BID 07/27/20 Lisinopril [Zestril] 10 mg PO DAILY 07/27/20 Metformin HCl 1,000 mg PO BID 07/27/20 Sertraline HCl [Zoloft] 150 mg PO DAILY 07/27/20 Surgical History: total hip arthroplasty, tonsillectomy Lives: Spouse/ Significant Other Smoking Status: Former smoker - *Family History Maternal History Items: Dementia Paternal History Items: Cancer, Heart Disease Review of Systems Constitutional: Reports: Anorexia. Denies: Chills, Fever, Weight Change HEENT: Denies: Head Aches, Sinus Congestion, Sinus Drainage Cardiovascular: Denies: Chest Pain, Palpitations Respiratory: Reports: Cough, Shortness of Breath. Denies: Shortness of breath at rest Gastrointestinal: Denies: Abdominal Pain, Nausea, Vomiting Genitourinary: Denies: Dysuria Musculoskeletal: Denies: Joint Pain, Joint Tenderness Skin: Denies: Rash, Wounds Neurological: Denies: Numbness, Tingling, Focal weakness Psychiatric: Denies: Anxiety, Depression, Homicidal Ideations, Suicidal Ideations Hematologic/ Lymphatic: Denies: Easy Bruising, Easy Bleeding VTE Information - Inpt Only VTE Present on Admission: No VTE Mechan Device Prophylaxis: None VTE Pharm Prophylaxis ordered?: Yes Patient Problems: Active and Suspected Problems COVID-19 (Acute) Pneumonia due to COVID-19 virus (Acute) Hypoxia (Acute) - Physical Exam Vitals/I&O's: Vital Signs Temp Pulse Resp BP Pulse Ox 98.2 F 96 30 H 127/80 H 94 07/27/20 00:37 07/27/20 02:08 07/27/20 02:08 07/27/20 02:08 07/27/20 02:08 Oxygen Flow Rate (L/min) 3 Oxygen Delivery Method Nasal Cannula Weight: 100 kg Body Mass Index (BMI) 34.5 General: Alert, Oriented x3, Cooperative HEENT: Atraumatic, PERRLA, EOMI, Normocephalic Neck: Supple, No JVD, Negative Carotid Bruits Lungs: Clear to auscultation, Normal air movement Cardiovascular: Regular rate, Regular Rhythm, Normal S1, Normal S2, No murmurs Abdomen: Bowel Sounds Present, Soft, Non Tender Extremities: No edema, Capillary Refill Less than 3 Seconds Skin: No rashes, No breakdown Musculoskeletal: No Tenderness to Palpation of Joints or Extremities Neurological: Cranial nerves II-XII grossly intact Psych/Mental Status: Normal Affect, Appropriate Laboratory Results 07/27/20 00:35: WBC 5.8, RBC 4.57 L, Hgb 13.9, Hct 38.2 L, MCV 83.6, MCH 30.4, MCHC 36.4 H, RDW Std Deviation 38.3, RDW Coeff of Alyssa 12.5, Plt Count 284, MPV 8.6, Immature Gran % (Auto) 1.000 H, Neut % (Auto) 70.7 H, Lymph % (Auto) 20.0, Tompkins % (Auto) 7.6, Eos % (Auto) 0.2, Baso % (Auto) 0.5, Absolute Neuts (auto) 4.1, Absolute Lymphs (auto) 1.15, Nucleated RBC % 0 07/27/20 00:35: D-Dimer Quant (PE/DVT) 1.72 H* 07/27/20 00:35: Sodium 133 L, Potassium 3.6, Chloride 105, Carbon Dioxide 19.0 L , Anion Gap 9, BUN 19 H, Creatinine 1.14, Estim Creat Clear Calc 62.81, Est GFR (MDRD) Af Amer 84, Est GFR (MDRD) Non-Af 69, BUN/Creatinine Ratio 16.7, Glucose 132 H, Calcium 8.8, Total Bilirubin 0.70, AST 37, ALT 30, Alkaline Phosphatase 54, Troponin I < 0.015, Total Protein 7.9, Albumin 2.9 L, Globulin 5.0 H, Albumin/Globulin Ratio 0.6 L 07/27/20 00:35: Lactic Acid 1.2 07/27/20 00:35: Procalcitonin 0.10 H Assessment/Plan All Active Problems COVID-19 (Acute) Pneumonia due to COVID-19 virus (Acute) Hypoxia (Acute) The patient is a 64 year old M with a significant history of COPD; lymphoma; and diabetes mellitus who presents emergency department with 11-day history of progressively worsening shortness of breath; and hypoxia and was tested positive for COVID-19 virus 9 days ago. Acute hypoxemic respiratory insufficiency secondary to SARS- COV 2 Reportedly her oxygen saturation was77 % on room air at home and still in the 70s at emergency department requiring supplemental oxygenation. Although patient has COPD he does not use home oxygen at baseline. Oxygen supplementation continued. Positive coronavirus test outpatient. Impression of chest x-ray by radiologist: Patchy bibasilar lung airspace opacities concerning for underlying pneumonia.. Actual chest x-ray image was independently interpreted. I agree radiologist interpretation. Dimer was elevated at 1.72. Follow-up chest CTA showed did not show any pulmonary embolism or anterior dissection. Diffusely scattered groundglass opacities were noted. Procalcitonin ordered. Rapid influenza screen ordered. We will continue patient on Decadron. Creatinine clearance is normal. Liver enzymes are normal. Will start patient on remdesivir. We will trend CMP. Plan up urine for fever. Continue home Mucinex. Add as needed Tessalon Perles. Loperamide for diarrhea. Hyponatremia Sodium of 133 likely secondary to pulmonary disease. Treatment of Covid as above. Trend BMP. Diabetes mellitus Patient with hyperglycemia on presentation Hold Metformin. Accu-Chek QA [facility] with correction scale insulin ordered. Hypertension Blood pressure is not within goal Lisinopril continued. Trend blood pressure and adjust blood pressure medications. Depression/anxiety Zoloft continued Allergies Hazel continued Hypertriglyceridemia Fenofibrate continued DVT prophylaxis Subcutaneous Lovenox ordered. Inpatient E&M: 38805 Init Hosp L3
[2020-07-27] MEDS: Acetaminophen 325 MG Tablet 650 MG PO (04:16)
[2020-07-27] MEDS: Enoxaparin 30 MG/0.3 ML Syringe SC ×2 (08:41→20:56)
[2020-07-27] MEDS: Fenofibrate 145 MG Tablet PO (08:42)
[2020-07-27] MEDS: guaiFENesin 1,200 MG Tablet 1200 MG PO ×2 (08:42→20:48)
[2020-07-27] MEDS: Lisinopril 10 MG Tablet PO (08:42)
[2020-07-27] MEDS: Sertraline 100 MG Tablet 150 MG PO (08:42)
[2020-07-27] MEDS: Loratadine 10 MG Tablet PO (08:43)
[2020-07-27] MEDS: Aspirin 81 MG TAB.CHEW PO (08:43)
[2020-07-27] MEDS: dexAMETHasone 4 MG Tablet 6 MG PO (08:43)
--- NOTE | 2020-07-27 11:38 | PCM.NTREPORT ---
Nutrition Therapy Report - History Current diet / nutrition support order:: regular - Anthropometric Measurements Height:: 5 ft 7 in Weight:: 98 kg Body Mass Index (BMI):: 33.8 - Relevant Labs Relevant Labs:: RBC 4.57 M/mm3 (4.6-6.2) L 07/27/20 00:35 Hct 38.2 % (40-54) L 07/27/20 00:35 MCHC 36.4 g/dL (32-36) H 07/27/20 00:35 Immature Gran % (Auto) 1.000 % (0.0-0.9) H 07/27/20 00:35 Neut % (Auto) 70.7 % (47-70) H 07/27/20 00:35 D-Dimer Quant (PE/DVT) 1.72 FEU/ug/m (0.27-0.49) H* 07/27/20 00:35 Sodium 133 mmol/L (136-145) L 07/27/20 00:35 Carbon Dioxide 19.0 mmol/L (21.0-32.0) L 07/27/20 00:35 BUN 19 mg/dL (7-18) H 07/27/20 00:35 Glucose 132 mg/dL (74-106) H 07/27/20 00:35 Albumin 2.9 g/dL (3.2-5.0) L 07/27/20 00:35 Globulin 5.0 g/dL (2.2-4.2) H 07/27/20 00:35 Albumin/Globulin Ratio 0.6 RATIO (0.9-2.4) L 07/27/20 00:35 Procalcitonin 0.10 ng/mL (0.00-0.09) H 07/27/20 00:35 - Assessment Food / Nutrition-Related History:: Currently in isolation d/t COVID-19. Spoke w/ pt via room phone. Pt describes poor appetite/PO intake for ~11 days [employer]ATION [employer]IST[employer]. States he only had bites of toast this AM. Reports significant diarrhea preventing him from eating much. Normally tries to follow a consistent CHO diet at home. 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 UBW 245#, CBW 216.1#-28.9#/11.8% wt loss is signficant for acute malnutrition. - Nutrition Diagnosis Problem / Etiology / Signs & Symptoms (PES):: Pt w/ severe, acute malnutrition related to inadequate energy intake, diarrhea during acute illness as evidenced by estimated PO intake meeting less than 50% of estimated nutritional needs for greater than 1 week, wt loss of 28.9#/11.8% x 2 weeks. Evidence of Malnutrition Exists:: Yes Severe PCM:: Acute Illness - Nutrition Intervention Nutrition Prescription:: [id number] calories, 78-88 g protein/day - Food / Nutrient Delivery Interventions Summary of nutrition intervention:: Discussed ONS w/ pt-agreeable to trying Ensure w/ dinner tonight. Wants to have imodium prior to eating. Discussed w/ pt imodium ordered PRN and to let nursing staff know if requested. Nutrition support ordered as / adjusted to:: continue regular diet d/t acute malnutrition; ensure enlive w/ breakfast and dinner - MNT Monitoring Further MNT monitoring and evaluation required?: Yes MNT Follow-up in:: 3-5 days
[2020-07-27 12:35] LABS: Bedside Glucose 178 mg/dL (70-110)
--- NOTE | 2020-07-27 14:24 | NURSING ---
RN CM Assessment Patient in Covid isolation, called bedside phone and introduced role of RN CM to patient.? Patient is alert, oriented and able?to participate in RN CM Assessment. ?Care providers, pharmacy, and demographics verified. Presentation: 11 day history of worsening SOB. H/o COPD, Lymphoma, DM. Admit Dx: COVID Re-Admit: No Barriers/Issues: Patient was Covid tested at [facility] in [place]. Lives with Sig Other [facility] whom is Covid positive. States that the are able to get assistance with groceries while in quarantine and able to quarantine at home. PCP: Sebastian Del Rio Specialists: None Preferred Pharmacy: [facility] Insurance: MMO Rx Benefit:?Yes LNOK: Sig Other [facility] [place] LW/HPOA: None. Would like information upon DC. Living Arrangements:?Lives with Sig. Other [employer] in a ground level apartment. No steps to enter home. ADL?s: Independent with ambulation and ADLs Transportation: Both patient and sig. other drive. [facility] will pick pt up upon DC. DME: None. Has been using [employer] Nebulizer. HHC: Past- Cannot recall agency. SNF: None Goal: Home and does not think will have any needs. Okay with HH PT if recommended. Has not ambulated in room yet- RNCM to f/u on mobility. Denies any issues, questions, or concerns with DCP at this time. DC PLAN: Home with possible home Oxygen. Current on [employer]. Discussed In [employer] and prefers [employer]. CAMMY Rouse
--- NOTE | 2020-07-27 15:43 | PCM.PN.BLA ---
Progress Note 1. Acute hypoxic respiratory insufficiency secondary to COVID-19 pneumonia -Continue with Decadron and remdesivir, he had already been on 5 days of Decadron prior to admission so he will only need 5 more days -Currently maintaining sats on 3 L nasal cannula -D-dimer was elevated to 1.72 with a normal CTA of the chest -We will plan to discharge on anticoagulation 2. HTN/HLD -Blood pressures are stable -Continue with his home medications 3. DM 2 -Continue with Accu-Cheks AC at bedtime and sliding scale insulin. Will adjust as necessary secondary to possible hyperglycemia due to the Decadron -We will hold his oral occasions 4. Depression/anxiety -Stable -Continue with Zoloft DVT: Lovenox STROKE Vital Signs/Narrative: Vital Signs Temp Pulse Resp BP Pulse Ox 07/27/20 14:00 97.8 F 79 16 97/64 96
[2020-07-27 17:10] LABS: Bedside Glucose 212 mg/dL (70-110)
[2020-07-27] MEDS: Insulin Lispro 100 UNIT/ML INSULN.PEN SC ×2 (17:19→20:48)
[2020-07-27] MEDS: Loperamide 2 MG Capsule PO (17:20)
[2020-07-27] MEDS: Atorvastatin Calcium 20 MG Tablet PO (20:48)
[2020-07-27] MEDS: MELATONIN 3 MG TABLET PO (20:48)
[2020-07-27 21:00] LABS: Bedside Glucose 311 mg/dL (70-110)
[2020-07-28] VITALS (8 sets, daily range): BP systolic 109–122; BP diastolic 65–79; PULSE 76–82; RESP 16–20; TEMP 36.4–36.8; O2SAT 92–95
[2020-07-28] MEDS: Insulin Lispro 100 UNIT/ML INSULN.PEN SC ×4 (06:16→21:12)
[2020-07-28 06:26] LABS: Bedside Glucose 188 mg/dL (70-110)
[2020-07-28 07:18] LABS: Absolute Lymphocyte Count 1.24 X10^3/uL (0.83-4.51); Absolute Neutrophil Count 4.3 X10^3/uL (2.0-7.7); Basophil# 0.03 X10^3/uL; Basophil% 0.5 % (0-1); Eosinophil# 0.01 X10^3/uL; Eosinophils% 0.2 % (0-5); Hematocrit 37.5 % (40-54); Hemoglobin 13.3 g/dL (13.0-16.5); Lymphocyte # 1.24 X10^3/ul (4.0); Lymphocyte % 20.3 % (19-41); Mean Corp Hgb Conc 35.5 g/dL (32-36); Mean Corpuscular Hgb 30.7 pg (27.0-32.0); Mean Corpuscular Volume 86.6 fL (80-94); Mean Platelet Vol. 8.9 fl (6.2-12.0); Monocyte# 0.46 X10^3/uL; Monocyte% 7.5 % (0-10); NRBC Flagged by Analyzer 0 % (0-5); Neutrophil # 4.32 X10^3/uL (2.7-7.7); Neutrophil % 70.7 % (47-70); Platelet Count 304 K/mm3 (150-450); RBC Distribution Width CV 12.6 % (11.6-14.6); RBC Distribution Width SD 40.4 fl (35.1-43.9); Red Blood Count 4.33 M/mm3 (4.6-6.2); White Blood Count 6.1 K/mm3 (4.4-11.0)
[2020-07-28 07:31] LABS: ALB/GLOB Ratio 0.6 RATIO (0.9-2.4); AST(SGOT) 25 U/L (15-37); Alanine Aminotransfer ALT/SGPT 26 U/L (16-61); Albumin, Serum 2.5 g/dL (3.2-5.0); Alkaline Phosphatase 49 U/L (45-117); Anion Gap 5 (5-15); BUN 26 mg/dL (7-18); BUN/Creat Ratio 28.5 RATIO (10-20); Chloride 109 mmol/L (98-107); Creatinine, Serum 0.91 mg/dL (0.70-1.30); EST Glomerular Filtration Rate 89 mL/min (>60); Est Glom Filt Rate - Afr Amer 108 mL/min (>60); Estimated Creatinine Clearance 78.69 ml/min; Globulin 4.4 g/dL (2.2-4.2); Glucose 167 mg/dL (74-106); Potassium 3.9 mmol/L (3.5-5.1); Protein, Total 6.9 g/dL (6.4-8.2); Sodium Level 136 mmol/L (136-145)
[2020-07-28] MEDS: guaiFENesin 1,200 MG Tablet 1200 MG PO ×2 (09:13→21:01)
[2020-07-28] MEDS: Fenofibrate 145 MG Tablet PO (09:13)
[2020-07-28] MEDS: Lisinopril 10 MG Tablet PO (09:13)
[2020-07-28] MEDS: Loratadine 10 MG Tablet PO (09:13)
[2020-07-28] MEDS: Aspirin 81 MG TAB.CHEW PO (09:13)
[2020-07-28] MEDS: Sertraline 100 MG Tablet 150 MG PO (09:13)
[2020-07-28] MEDS: Enoxaparin 30 MG/0.3 ML Syringe SC ×2 (09:14→21:01)
[2020-07-28] MEDS: dexAMETHasone 4 MG Tablet 6 MG PO (09:14)
--- NOTE | 2020-07-28 10:17 | PCM.PN.HOSP ---
Patient Problems: Active and Suspected Problems COVID-19 (Acute) Pneumonia due to COVID-19 virus (Acute) Hypoxia (Acute) Subjective: Doing well, no issues overnight. Still on 3 to 4 L nasal cannula maintain his oxygen sats. He does cough significantly start taking a deep breath, continue to encourage incentive spirometer. Vitals/I&O's: Vital Signs Temp Pulse Resp BP Pulse Ox 97.9 F 76 18 119/78 94 07/28/20 01:56 07/28/20 01:56 07/28/20 01:56 07/28/20 01:56 07/28/20 07:25 Oxygen Flow Rate (L/min) 4 Oxygen Delivery Method Nasal Cannula Weight: 216 lb 0.848 oz Body Mass Index (BMI) 33.8 Intake and Output for Last 24 Hours 07/26/20 07/27/20 07/28/20 23:59 23:59 23:59 Intake Total 960 / 1200 340 / 340 Output Total 300 / 800 700 / 700 Balance 660 / 400 -360 / -360 General: Alert, Oriented x3, Cooperative, No apparent distress HEENT: Atraumatic, PERRLA, EOMI, Normocephalic Oral: Moist Mucosa Neck: Supple, No JVD Lungs: Normal air movement, No rhonchi, No wheeze, No rales, Diminished Cardiovascular: Regular rate, Regular Rhythm, Normal S1, Normal S2, No murmurs Abdomen: Soft, Non Tender, Non-Distended, No Hepato-splenomegaly Extremities: No edema, Capillary Refill Less than 3 Seconds Skin: No rashes, No breakdown Neurological: Neuro grossly intact, Sensory exam intact to light touch and pain Psych/Mental Status: Normal Affect, Appropriate Microbiology Past 72 Hours 07/27/20 00:45 Blood Culture (Wb) - Left Hand Blood Culture - Preliminary 07/27/20 03:17 Mucosa - Nasopharyngeal Influenza Types A,B Direct FA ([facility]EN) - Final Laboratory Results 07/27/20 12:19: POC Glucose 178 H 07/27/20 16:40: POC Glucose 212 H 07/27/20 20:47: POC Glucose 311 H 07/28/20 06:16: POC Glucose 188 H 07/28/20 07:00: WBC 6.1, RBC 4.33 L, Hgb 13.3, Hct 37.5 L, MCV 86.6, MCH 30.7, MCHC 35.5, RDW Std Deviation 40.4, RDW Coeff of Alyssa 12.6, Plt Count 304, MPV 8.9, Immature Gran % (Auto) 0.800, Neut % (Auto) 70.7 H, Lymph % (Auto) 20.3, Barry % (Auto) 7.5, Eos % (Auto) 0.2, Baso % (Auto) 0.5, Absolute Neuts (auto) 4.3, Absolute Lymphs (auto) 1.24, Nucleated RBC % 0 07/28/20 07:00: Sodium 136, Potassium 3.9, Chloride 109 H, Carbon Dioxide 22.0, Anion Gap 5, BUN 26 H, Creatinine 0.91, Estim Creat Clear Calc 78.69, Est GFR (MDRD) Af Amer 108, Est GFR (MDRD) Non-Af 89, BUN/Creatinine Ratio 28.5 H, Glucose 167 H, Calcium 9.0, Total Bilirubin 0.50, AST 25, ALT 26, Alkaline Phosphatase 49, Total Protein 6.9, Albumin 2.5 L, Globulin 4.4 H, Albumin/Globulin Ratio 0.6 L Current Medications Acetaminophen (Acetaminophen 325 Mg Tablet) 650 mg PO Q6H PRN PRN PRN Reason: Pain Score 1-10/Temp > 100.7 F Last Admin: 07/27/20 04:16 Dose: 650 mg Documented by: Albuterol Sulfate (Albuterol 2.5 Mg/3 Ml Vial.Neb.) 2.5 mg INHALATION Q2H PRN PRN PRN Reason: Shortness of Breath/Wheezing Aspirin (Aspirin 81 Mg Tab.Chew) 81 mg PO DAILY@0800 [facility] Last Admin: 07/28/20 09:13 Dose: 81 mg Documented by: Atorvastatin Calcium (Atorvastatin Calcium 20 Mg Tablet) 20 mg PO QHS [facility] Last Admin: 07/27/20 20:48 Dose: 20 mg Documented by: Benzonatate (Benzonatate 100 Mg Capsule) 100 mg PO TID PRN PRN PRN Reason: COUGH Dexamethasone (Dexamethasone 4 Mg Tablet) 6 mg PO DAILY [facility] Last Admin: 07/28/20 09:14 Dose: 6 mg Documented by: Dextrose (Dextrose 50%-Water 25 Gm/50 Ml Disp.Syrin) 0 gm IV X1 PRN; Protocol PRN Reason: Hypoglycemia Enoxaparin Sodium (Enoxaparin 30 Mg/0.3 Ml Syringe) 30 mg SC BID [facility] Last Admin: 07/28/20 09:14 Dose: 30 mg Documented by: Fenofibrate (Fenofibrate 145 Mg Tablet) 145 mg PO DAILY [facility] Last Admin: 07/28/20 09:13 Dose: 145 mg Documented by: Glucagon (Glucagon 1 Mg/Ml Syringe) 1 mg IM .X1 PRN PRN Reason: Hypoglycemia Guaifenesin (Guaifenesin 1,200 Mg Tablet) 1,200 mg PO BID [facility] Last Admin: 07/28/20 09:13 Dose: 1,200 mg Documented by: Remdesivir 100 mg/ Sodium (Chloride) 250 mls @ 125 mls/hr IV Q24H [facility] Stop: 07/30/20 23:59 Last Infusion: 07/27/20 22:59 Dose: Infused Documented by: Insulin Human Lispro (Insulin Lispro 100 Unit/Ml Insuln.Pen) 0 unit SC LOCATED [facility]; Protocol Last Admin: 07/28/20 06:16 Dose: 1 units Documented by: Lisinopril (Lisinopril 10 Mg Tablet) 10 mg PO DAILY [facility] Last Admin: 07/28/20 09:13 Dose: 10 mg Documented by: Loperamide HCl (Loperamide 2 Mg Capsule) 2 mg PO Q4H PRN PRN PRN Reason: Diarrhea Last Admin: 07/27/20 17:20 Dose: 2 mg Documented by: Loratadine (Loratadine 10 Mg Tablet) 10 mg PO DAILY [facility] Last Admin: 07/28/20 09:13 Dose: 10 mg Documented by: Melatonin (Melatonin 3 Mg Tablet) 3 mg PO QHS PRN PRN PRN Reason: INSOMNIA Last Admin: 07/27/20 20:48 Dose: 3 mg Documented by: Ondansetron HCl (Ondansetron 4 Mg/2 Ml Vial) 4 mg IV Q8H PRN PRN PRN Reason: NAUSEA/VOMITING Senna/Docusate Sodium (Senna/Docusate Sodium 1 Tablet) 2 tablet PO BID PRN PRN PRN Reason: Constipation Sertraline HCl (Sertraline 100 Mg Tablet) 150 mg PO DAILY [facility] Last Admin: 07/28/20 09:13 Dose: 150 mg Documented by: Sodium Chloride (0.9% Saline Lock 10 Ml Syringe) 10 - 40 ml IV UD PRN PRN Reason: SALINE FLUSH STROKE Vital Signs/Narrative: Vital Signs Pulse Ox 07/28/20 07:25 94 Medical Necessity - Tobacco Use Smoking Status: Former smoker Assessment/Plan All Active Problems COVID-19 (Acute) Pneumonia due to COVID-19 virus (Acute) Hypoxia (Acute) 1. Acute hypoxic respiratory insufficiency secondary to COVID-19 pneumonia -Continue with Decadron and remdesivir, he had already been on 5 days of Decadron prior to admission so he will only need 5 more days -Currently maintaining sats on 3-4 L nasal cannula -D-dimer was elevated to 1.72 with a normal CTA of the chest -We will plan to discharge on anticoagulation 2. HTN/HLD -Blood pressures are stable -Continue with his home medications 3. DM 2 -Continue with Accu-Cheks AC at bedtime and sliding scale insulin. Will adjust as necessary secondary to possible hyperglycemia due to the Decadron -We will hold his oral occasions 4. Depression/anxiety -Stable -Continue with Zoloft DVT: Lovenox Inpatient E&M: 81292 Subs Hosp L2
[2020-07-28 12:35] LABS: Bedside Glucose 216 mg/dL (70-110)
[2020-07-28 18:21] LABS: Bedside Glucose 282 mg/dL (70-110)
[2020-07-28] MEDS: MELATONIN 3 MG TABLET PO (21:01)
[2020-07-28] MEDS: Atorvastatin Calcium 20 MG Tablet PO (21:01)
[2020-07-28 21:26] LABS: Bedside Glucose 375 mg/dL (70-110)
[2020-07-29] VITALS (7 sets, daily range): BP systolic 107–128; BP diastolic 67–74; PULSE 72–86; RESP 16–18; TEMP 36.5–37; O2SAT 2–95
[2020-07-29 05:55] LABS: Absolute Lymphocyte Count 1.16 X10^3/uL (0.83-4.51); Absolute Neutrophil Count 3.9 X10^3/uL (2.0-7.7); Basophil# 0.02 X10^3/uL; Basophil% 0.4 % (0-1); Eosinophil# 0.01 X10^3/uL; Eosinophils% 0.2 % (0-5); Hematocrit 36.3 % (40-54); Hemoglobin 12.8 g/dL (13.0-16.5); Lymphocyte # 1.16 X10^3/ul (4.0); Lymphocyte % 20.5 % (19-41); Mean Corp Hgb Conc 35.3 g/dL (32-36); Mean Corpuscular Hgb 30.4 pg (27.0-32.0); Mean Corpuscular Volume 86.2 fL (80-94); Mean Platelet Vol. 8.9 fl (6.2-12.0); Monocyte# 0.53 X10^3/uL; Monocyte% 9.4 % (0-10); NRBC Flagged by Analyzer 0 % (0-5); Neutrophil # 3.87 X10^3/uL (2.7-7.7); Neutrophil % 68.3 % (47-70); POSITIVE MORPHOLOGY YES; Platelet Count 363 K/mm3 (150-450); RBC Distribution Width CV 12.5 % (11.6-14.6); RBC Distribution Width SD 39.8 fl (35.1-43.9); Red Blood Count 4.21 M/mm3 (4.6-6.2); White Blood Count 5.7 K/mm3 (4.4-11.0)
[2020-07-29 06:00] LABS: Differential Indicated SCAN CRITERIA MET
[2020-07-29] MEDS: Insulin Lispro 100 UNIT/ML INSULN.PEN SC ×4 (06:23→20:51)
[2020-07-29 06:27] LABS: ALB/GLOB Ratio 0.6 RATIO (0.9-2.4); AST(SGOT) 28 U/L (15-37); Alanine Aminotransfer ALT/SGPT 25 U/L (16-61); Albumin, Serum 2.4 g/dL (3.2-5.0); Alkaline Phosphatase 51 U/L (45-117); Anion Gap 6 (5-15); BUN 28 mg/dL (7-18); BUN/Creat Ratio 27.2 RATIO (10-20); Calcium,Total 8.9 mg/dL (8.5-10.1); Chloride 106 mmol/L (98-107); Creatinine, Serum 1.03 mg/dL (0.70-1.30); EST Glomerular Filtration Rate 78 mL/min (>60); Est Glom Filt Rate - Afr Amer 94 mL/min (>60); Estimated Creatinine Clearance 69.52 ml/min; Globulin 4.3 g/dL (2.2-4.2); Glucose 263 mg/dL (74-106); Potassium 4.2 mmol/L (3.5-5.1); Protein, Total 6.7 g/dL (6.4-8.2); Sodium Level 136 mmol/L (136-145)
[2020-07-29 06:31] LABS: Bedside Glucose 256 mg/dL (70-110)
[2020-07-29] MEDS: Aspirin 81 MG TAB.CHEW PO (08:22)
[2020-07-29] MEDS: Lisinopril 10 MG Tablet PO (08:49)
[2020-07-29] MEDS: dexAMETHasone 4 MG Tablet 6 MG PO (08:49)
[2020-07-29] MEDS: Fenofibrate 145 MG Tablet PO (08:49)
[2020-07-29] MEDS: guaiFENesin 1,200 MG Tablet 1200 MG PO ×2 (08:49→20:51)
[2020-07-29] MEDS: Sertraline 100 MG Tablet 150 MG PO (08:50)
[2020-07-29] MEDS: Enoxaparin 30 MG/0.3 ML Syringe SC ×2 (08:50→20:51)
[2020-07-29] MEDS: Loratadine 10 MG Tablet PO (08:50)
--- NOTE | 2020-07-29 11:26 | NURSING ---
Update given to pt's daughter and daughter wanted to speak with physician regarding some of the questions I could not answer. Dr. Wilson is aware and has the phone number to call.
--- NOTE | 2020-07-29 12:02 | PN_ITS ---
Patient Problems: Active and Suspected Problems COVID-19 (Acute) Pneumonia due to COVID-19 virus (Acute) Hypoxia (Acute) Subjective: He is doing well today, his oxygen requirements went down to 2 L. His ambulatory oxygen requirements are only at 2 L. However he does not feel ready to go home today and would like to see if he feels any better tomorrow. Vitals/I&O's: Vital Signs Temp Pulse Resp BP Pulse Ox 98.5 F 80 16 107/72 95 07/29/20 08:30 07/29/20 08:30 07/29/20 08:30 07/29/20 08:30 07/29/20 08:53 Oxygen Flow Rate (L/min) [ 92 AMBULATION with Oxygen] Oxygen Flow Rate (L/min) 2 Oxygen Delivery Method Nasal Cannula Weight: 216 lb 0.848 oz Body Mass Index (BMI) 33.8 Intake and Output for Last 24 Hours 07/27/20 07/28/20 07/29/20 23:59 23:59 23:59 Intake Total 960 / 1200 1030 / 1030 Output Total 300 / 800 1100 / 1100 Balance 660 / 400 -70 / -70 General: Alert, Oriented x3, Cooperative, No apparent distress HEENT: Atraumatic, PERRLA, EOMI, Normocephalic Oral: Moist Mucosa Neck: Supple, No JVD Lungs: Normal air movement, No rhonchi, No wheeze, No rales, Diminished Cardiovascular: Regular rate, Regular Rhythm, Normal S1, Normal S2, No murmurs Abdomen: Soft, Non Tender, Non-Distended, No Hepato-splenomegaly Extremities: No edema, Capillary Refill Less than 3 Seconds Skin: No rashes, No breakdown Neurological: Neuro grossly intact, Sensory exam intact to light touch and pain Psych/Mental Status: Normal Affect, Appropriate Microbiology Past 72 Hours 07/27/20 00:45 Blood Culture (Wb) - Left Hand Blood Culture - Preliminary 07/27/20 00:35 Blood Culture (Wb) - Right Hand Blood Culture - Preliminary No growth in 48 hours. 07/27/20 03:17 Mucosa - Nasopharyngeal Influenza Types A,B Direct FA ([facility]) - Final Laboratory Results 07/28/20 12:28: POC Glucose 216 H 07/28/20 17:00: POC Glucose 282 H 07/28/20 21:11: POC Glucose 375 H 07/29/20 05:34: WBC 5.7, RBC 4.21 L, Hgb 12.8 L, Hct 36.3 L, MCV 86.2, MCH 30.4, MCHC 35.3, RDW Std Deviation 39.8, RDW Coeff of Alyssa 12.5, Plt Count 363, MPV 8.9, Immature Gran % (Auto) 1.200 H, Neut % (Auto) 68.3, Lymph % (Auto) 20.5, Estill % (Auto) 9.4, Eos % (Auto) 0.2, Baso % (Auto) 0.4, Absolute Neuts (auto) 3.9, Absolute Lymphs (auto) 1.16, Nucleated RBC % 0 07/29/20 05:34: Sodium 136, Potassium 4.2, Chloride 106, Carbon Dioxide 24.0, Anion Gap 6, BUN 28 H, Creatinine 1.03, Estim Creat Clear Calc 69.52, Est GFR (MDRD) Af Amer 94, Est GFR (MDRD) Non-Af 78, BUN/Creatinine Ratio 27.2 H, G lucose 263 H, Calcium 8.9, Total Bilirubin 0.50, AST 28, ALT 25, Alkaline Phosphatase 51, Total Protein 6.7, Albumin 2.4 L, Globulin 4.3 H, Albumin/Globulin Ratio 0.6 L 07/29/20 06:22: POC Glucose 256 H Current Medications Acetaminophen (Acetaminophen 325 Mg Tablet) 650 mg PO Q6H PRN PRN PRN Reason: Pain Score 1-10/Temp > 100.7 F Last Admin: 07/27/20 04:16 Dose: 650 mg Documented by: Albuterol Sulfate (Albuterol 2.5 Mg/3 Ml Vial.Neb.) 2.5 mg INHALATION Q2H PRN PRN PRN Reason: Shortness of Breath/Wheezing Aspirin (Aspirin 81 Mg Tab.Chew) 81 mg PO DAILY@0800 COUNTS INCLUDE 234 BEDS AT THE [facility] Last Admin: 07/29/20 08:22 Dose: 81 mg Documented by: Atorvastatin Calcium (Atorvastatin Calcium 20 Mg Tablet) 20 mg PO QHS COUNTS INCLUDE 234 BEDS AT THE [facility] Last Admin: 07/28/20 21:01 Dose: 20 mg Documented by: Benzonatate (Benzonatate 100 Mg Capsule) 100 mg PO TID PRN PRN PRN Reason: COUGH Dexamethasone (Dexamethasone 4 Mg Tablet) 6 mg PO DAILY COUNTS INCLUDE 234 BEDS AT THE [facility] Last Admin: 07/29/20 08:49 Dose: 6 mg Documented by: Dextrose (Dextrose 50%-Water 25 Gm/50 Ml Disp.Syrin) 0 gm IV X1 PRN; Protocol PRN Reason: Hypoglycemia Enoxaparin Sodium (Enoxaparin 30 Mg/0.3 Ml Syringe) 30 mg SC BID COUNTS INCLUDE 234 BEDS AT THE [facility] Last Admin: 07/29/20 08:50 Dose: 30 mg Documented by: Fenofibrate (Fenofibrate 145 Mg Tablet) 145 mg PO DAILY COUNTS INCLUDE 234 BEDS AT THE [facility] Last Admin: 07/29/20 08:49 Dose: 145 mg Documented by: Glucagon (Glucagon 1 Mg/Ml Syringe) 1 mg IM .X1 PRN PRN Reason: Hypoglycemia Guaifenesin (Guaifenesin 1,200 Mg Tablet) 1,200 mg PO BID COUNTS INCLUDE 234 BEDS AT THE [facility] Last Admin: 07/29/20 08:49 Dose: 1,200 mg Documented by: Remdesivir 100 mg/ Sodium (Chloride) 250 mls @ 125 mls/hr IV Q24H COUNTS INCLUDE 234 BEDS AT THE [facility] Stop: 07/30/20 23:59 Last Infusion: 07/28/20 23:02 Dose: Infused Documented by: Insulin Human Lispro (Insulin Lispro 100 Unit/Ml Insuln.Pen) 0 unit SC ACHS COUNTS INCLUDE 234 BEDS AT THE [facility]; Protocol Last Admin: 07/29/20 06:23 Dose: 3 units Documented by: Lisinopril (Lisinopril 10 Mg Tablet) 10 mg PO DAILY COUNTS INCLUDE 234 BEDS AT THE [facility] Last Admin: 07/29/20 08:49 Dose: 10 mg Documented by: Loperamide HCl (Loperamide 2 Mg Capsule) 2 mg PO Q4H PRN PRN PRN Reason: Diarrhea Last Admin: 07/27/20 17:20 Dose: 2 mg Documented by: Loratadine (Loratadine 10 Mg Tablet) 10 mg PO DAILY COUNTS INCLUDE 234 BEDS AT THE [facility] Last Admin: 07/29/20 08:50 Dose: 10 mg Documented by: Melatonin (Melatonin 3 Mg Tablet) 3 mg PO QHS PRN PRN PRN Reason: INSOMNIA Last Admin: 07/28/20 21:01 Dose: 3 mg Documented by: Ondansetron HCl (Ondansetron 4 Mg/2 Ml Vial) 4 mg IV Q8H PRN PRN PRN Reason: NAUSEA/VOMITING Senna/Docusate Sodium (Senna/Docusate Sodium 1 Tablet) 2 tablet PO BID PRN PRN PRN Reason: Constipation Sertraline HCl (Sertraline 100 Mg Tablet) 150 mg PO DAILY [facility] Last Admin: 07/29/20 08:50 Dose: 150 mg Documented by: Sodium Chloride (0.9% Saline Lock 10 Ml Syringe) 10 - 40 ml IV UD PRN PRN Reason: SALINE FLUSH STROKE Vital Signs/Narrative: Vital Signs Temp Pulse Resp BP Pulse Ox Pulse Ox Pulse Ox 07/29/20 08:53 95 07/29/20 08:36 86 2 07/29/20 08:30 98.5 F 80 16 107/72 93 Pulse Ox 07/29/20 08:53 07/29/20 08:36 85 07/29/20 08:30 Medical Necessity - Tobacco Use Smoking Status: Former smoker Assessment/Plan All Active Problems COVID-19 (Acute) Pneumonia due to COVID-19 virus (Acute) Hypoxia (Acute) 1. Acute hypoxic respiratory insufficiency secondary to COVID-19 pneumonia -Continue with Decadron and remdesivir, he had already been on 5 days of Decadron prior to admission so he will only need 5 more days -Currently maintaining sats on 2 L nasal cannula ambulatory pulse ox also needed 2 L nasal cannula -D-dimer was elevated to 1.72 with a normal CTA of the chest -We will plan to discharge on anticoagulation 2. HTN/HLD -Blood pressures are stable -Continue with his home medications 3. DM 2 -Continue with Accu-Cheks AC at bedtime and sliding scale insulin. Will adjust as necessary secondary to possible hyperglycemia due to the Decadron -We will hold his oral occasions 4. Depression/anxiety -Stable -Continue with Zoloft DVT: Lovenox Inpatient E&M: [id number] Subs Hosp L2
[2020-07-29 12:40] LABS: Bedside Glucose 328 mg/dL (70-110)
--- NOTE | 2020-07-29 13:39 | CASEMGMT ---
RN CM Note: Green sheet on front of chart for home oxygen set up with [employer]. Eliquis savings card on front of chart to give to pt on discharge. Patient is ambulating with standby assist. Plan to return home with . No further needs identified. Carl GOULDN RN ACM
[2020-07-29 17:40] LABS: Bedside Glucose 423 mg/dL (70-110)
[2020-07-29] MEDS: Atorvastatin Calcium 20 MG Tablet PO (20:51)
[2020-07-29] MEDS: MELATONIN 3 MG TABLET PO (20:59)
[2020-07-29] MEDS: Acetaminophen 325 MG Tablet 650 MG PO (20:59)
[2020-07-29 21:01] LABS: Bedside Glucose 417 mg/dL (70-110)
[2020-07-30 02:45] VITALS: BP 136/75; PULSE 75; RESP 18; TEMP 36.6; O2SAT 92
[2020-07-30 06:04] LABS: Absolute Lymphocyte Count 1.67 X10^3/uL (0.83-4.51); Absolute Neutrophil Count 4.4 X10^3/uL (2.0-7.7); Basophil# 0.04 X10^3/uL; Basophil% 0.6 % (0-1); Eosinophil# 0.04 X10^3/uL; Eosinophils% 0.6 % (0-5); Hematocrit 36.1 % (40-54); Hemoglobin 12.6 g/dL (13.0-16.5); Lymphocyte # 1.67 X10^3/ul (4.0); Lymphocyte % 24.2 % (19-41); Mean Corp Hgb Conc 34.9 g/dL (32-36); Mean Corpuscular Hgb 30.6 pg (27.0-32.0); Mean Corpuscular Volume 87.6 fL (80-94); Mean Platelet Vol. 8.8 fl (6.2-12.0); Monocyte# 0.59 X10^3/uL; Monocyte% 8.5 % (0-10); NRBC Flagged by Analyzer 0 % (0-5); Neutrophil # 4.39 X10^3/uL (2.7-7.7); Neutrophil % 63.5 % (47-70); Platelet Count 379 K/mm3 (150-450); RBC Distribution Width CV 12.3 % (11.6-14.6); RBC Distribution Width SD 39.8 fl (35.1-43.9); Red Blood Count 4.12 M/mm3 (4.6-6.2); White Blood Count 6.9 K/mm3 (4.4-11.0)
[2020-07-30 06:37] LABS: ALB/GLOB Ratio 0.6 RATIO (0.9-2.4); AST(SGOT) 22 U/L (15-37); Alanine Aminotransfer ALT/SGPT 25 U/L (16-61); Albumin, Serum 2.4 g/dL (3.2-5.0); Alkaline Phosphatase 50 U/L (45-117); Anion Gap 4 (5-15); BUN 24 mg/dL (7-18); BUN/Creat Ratio 23.3 RATIO (10-20); Calcium,Total 8.9 mg/dL (8.5-10.1); Chloride 106 mmol/L (98-107); Creatinine, Serum 1.03 mg/dL (0.70-1.30); EST Glomerular Filtration Rate 78 mL/min (>60); Est Glom Filt Rate - Afr Amer 94 mL/min (>60); Estimated Creatinine Clearance 69.52 ml/min; Globulin 4.1 g/dL (2.2-4.2); Glucose 251 mg/dL (74-106); Potassium 4.1 mmol/L (3.5-5.1); Protein, Total 6.5 g/dL (6.4-8.2); Sodium Level 137 mmol/L (136-145)
[2020-07-30] MEDS: Insulin Lispro 100 UNIT/ML INSULN.PEN SC (06:41)
[2020-07-30 06:50] LABS: Bedside Glucose 258 mg/dL (70-110)
--- NOTE | 2020-07-30 09:12 | DCINST_ITS ---
- Discharge Diagnoses Current Active Problems: Current Active and Chronic Problems COPD (chronic obstructive pulmonary disease) (Chronic) Diabetes (Chronic) High cholesterol (Chronic) History of lymphoma (Chronic) COVID-19 (Acute) Pneumonia due to COVID-19 virus (Acute) Hypoxia (Acute) You will use the following diet at home:: Calorie/Carbohydrate Controlled (specify 1200, 1400, etc) Your food should be the consistency of: Regular Your liquids should be the consistency of: Regular/Thin Discharge Activity: Return to Normal Activity Call your doctor if you observe: Fever of 101 or Higher, Shortness of breath, Dizziness, Fainting spells, Swelling in the ankles, Chest pain, Increased palpitations (irregular heartbeat) Instructions: Coronavirus Disease 2019 (COVID-19): Caring for Yourself or Others, Coronavirus Disease 2019 (COVID-19): Overview Additional Instructions: Remain quarantined in your house for another week Allergies/Adverse Reactions: Allergies No Known Allergies Allergy (Verified 12/24/13 18:16) Medications to take at Discharge Aspirin [Aspirin, Baby] 81 mg PO DAILY@0800 07/27/20 Atorvastatin Calcium [Lipitor] 20 mg PO QHS 07/27/20 Cholecalciferol (Vitamin D3) [Vitamin D3] 125 mcg PO DAILY 07/27/20 Fenofibrate [Tricor] 145 mg PO DAILY 07/27/20 Fexofenadine HCl [Hazel Allergy] 180 mg PO DAILY 07/27/20 Fluticasone Propionate [Flovent Diskus] 2 puff INHALATION BID 07/27/20 Guaifenesin [Mucinex] 1,200 mg PO BID 07/27/20 Lisinopril [Zestril] 10 mg PO DAILY 07/27/20 Metformin HCl 1,000 mg PO BID 07/27/20 Sertraline HCl [Zoloft] 150 mg PO DAILY 07/27/20 Apixaban [Eliquis] 2.5 mg PO BID #28 tab 07/30/20 Dexamethasone 6 mg PO DAILY #0 07/30/20 The following prescriptions were given: Apixaban [Eliquis] 2.5 mg PO BID #28 tab Transmission Status: Pending to [facility] Primary Care Physician: Sebastian Del Rio MD [Primary Care Provider] - Please follow up with your Primary Care Physician in: 3-5 days Test Results: Test results from this visit will be discussed in further detail at your follow- up appointment, if applicable.
[2020-07-30 09:40] VITALS: BP 117/66; PULSE 93; RESP 18; TEMP 37.1; O2SAT 94
[2020-07-30] MEDS: Enoxaparin 30 MG/0.3 ML Syringe SC (09:46)
[2020-07-30] MEDS: dexAMETHasone 4 MG Tablet 6 MG PO (09:46)
[2020-07-30] MEDS: Lisinopril 10 MG Tablet PO (09:47)
[2020-07-30] MEDS: Aspirin 81 MG TAB.CHEW PO (09:48)
[2020-07-30] MEDS: Loratadine 10 MG Tablet PO (09:48)
[2020-07-30] MEDS: Fenofibrate 145 MG Tablet PO (09:48)
[2020-07-30] MEDS: guaiFENesin 1,200 MG Tablet 1200 MG PO (09:48)
[2020-07-30] MEDS: Sertraline 100 MG Tablet 150 MG PO (09:51)
[2020-07-30 09:53] VITALS: O2SAT 84; O2SAT 91; O2SAT 95
--- NOTE | 2020-07-30 10:01 | PCM.DC.SUM ---
Discharge Date and Diagnosis - Problem List Patient Problems: Active and Suspected Problems COVID-19 (Acute) Pneumonia due to COVID-19 virus (Acute) Hypoxia (Acute) Date of Admission: 07/27/20 Date of Discharge: 07/30/20 - Primary Discharge Diagnosis Acute Problems: Active Problems COVID-19 (Acute) Pneumonia due to COVID-19 virus (Acute) Hypoxia (Acute) - Secondary Discharge Diagnosis Chronic Problems: Chronic Problems COPD (chronic obstructive pulmonary disease) (Chronic) Diabetes (Chronic) High cholesterol (Chronic) History of lymphoma (Chronic) Hospital Course and Treatment Imaging Results: Clinical Impression(s) from Imaging Studies Chest X-Ray 07/27/20 00:29 IMPRESSION: Patchy bibasilar lung airspace opacities concerning for underlying pneumonia. Electronically Signed: Nir Palacios MD at 1:04 EST Tel , Service support , Chest CTA 07/27/20 01:09 IMPRESSION: No demonstrated pulmonary embolism or arterial dissection. Diffusely scattered groundglass airspace opacities concerning for underlying infectious inflammatory process and viral pneumonia. Electronically Signed: Nir Palacios MD at 1:52 EST Tel , Service support , Operations: None Procedures: None Summary of Care Provided: Per HPI:The patient is a 64 year old M with a significant history of COPD; lymphoma; and diabetes mellitus who presents to the emergency department with 11-day history of progressively worsening shortness of breath. Associated with his symptoms is coughing and anorexia. His symptoms began on July 16, 2020 and on July 18, 2019 he tested positive for Covid 19 virus. Also his has Covid. Patient reports that at the onset of his symptoms his oxygen saturation was 97% on room air. His oxygen saturation deteriorated along the line and remained stable at 93%. On the night of presentation his checked his oxygen saturation and it was 77%. Because of hypoxia his drove him to the emergency department. Reportedly he was initially prescribed a 5-day course of Decadron. Before the 5-day course would end his PCP prescribed a 5-day course of Decadron. The later 5-day course he is yet to begin. He denies any loss of taste or smell sensation. He has diarrhea. Hospital Course: 1. Acute hypoxic respiratory insufficiency secondary to COVID-19 pneumonia -Continue with Decadron and remdesivir, he had already been on 5 days of Decadron prior to admission so he will only need 5 more days -Currently maintaining sats on 2 L nasal cannula ambulatory pulse ox also needed 2 L nasal cannula -D-dimer was elevated to 1.72 with a normal CTA of the chest -We will plan to discharge on anticoagulation -I discussed with him and his family the plan for discharge, they all like expressed understanding of the risk and benefits of him going home and they would like him to go home today. I discussed with him that he will need to continue to doing aggressive incentive spirometry, and he can finish 2 more days of Decadron that he already has at home. We will also plan for 2.5 mg twice daily p.o. of Eliquis for 14 days given his elevated D-dimer. 2. HTN/HLD -Blood pressures are stable -Continue with his home medications 3. DM 2 -Continue with Accu-Cheks AC at bedtime and sliding scale insulin. Will adjust as necessary secondary to possible hyperglycemia due to the Decadron -We will hold his oral occasions 4. Depression/anxiety -Stable -Continue with Zoloft Patient Problems: Active and Suspected Problems COVID-19 (Acute) Pneumonia due to COVID-19 virus (Acute) Hypoxia (Acute) - Physical Exam Vitals/I&O's: Vital Signs Temp Pulse Resp BP Pulse Ox 98.8 F 93 18 117/66 94 07/30/20 09:40 07/30/20 09:40 07/30/20 09:40 07/30/20 09:40 07/30/20 09:40 Oxygen Flow Rate (L/min) [ 92 AMBULATION with Oxygen] Oxygen Flow Rate (L/min) 2 Oxygen Delivery Method Nasal Cannula Weight: 216 lb 0.848 oz Body Mass Index (BMI) 33.8 Intake and Output for Last 24 Hours 07/28/20 07/29/20 07/30/20 23:59 23:59 23:59 Intake Total 1030 / 1030 250 / 250 Output Total 1100 / 1100 Balance -70 / -70 250 / 250 General: Alert, Oriented x3, Cooperative, No apparent distress HEENT: Atraumatic, PERRLA, EOMI, Normocephalic Oral: Moist Mucosa Neck: Supple, No JVD Lungs: Normal air movement, No rhonchi, No wheeze, No rales, Diminished Cardiovascular: Regular rate, Regular Rhythm, Normal S1, Normal S2, No murmurs Abdomen: Soft, Non Tender, Non-Distended, No Hepato-splenomegaly Extremities: No edema, Capillary Refill Less than 3 Seconds Skin: No rashes, No breakdown Neurological: Neuro grossly intact, Sensory exam intact to light touch and pain Psych/Mental Status: Normal Affect, Appropriate Microbiology Past 72 Hours 07/27/20 00:45 Blood Culture (Wb) - Left Hand Blood Culture - Preliminary 07/27/20 00:35 Blood Culture (Wb) - Right Hand Blood Culture - Preliminary No growth in 48 hours. Laboratory Results 07/29/20 12:33: POC Glucose 328 H 07/29/20 17:35: POC Glucose 423 H 07/29/20 20:48: POC Glucose 417 H 07/30/20 05:44: WBC 6.9, RBC 4.12 L, Hgb 12.6 L, Hct 36.1 L, MCV 87.6, MCH 30.6, MCHC 34.9, RDW Std Deviation 39.8, RDW Coeff of Alyssa 12.3, Plt Count 379, MPV 8.8, Immature Gran % (Auto) 2.600 H, Neut % (Auto) 63.5, Lymph % (Auto) 24.2, [place] % (Auto) 8.5, Eos % (Auto) 0.6, Baso % (Auto) 0.6, Absolute Neuts (auto) 4.4, Absolute Lymphs (auto) 1.67, Nucleated RBC % 0 07/30/20 05:44: Sodium 137, Potassium 4.1, Chloride 106, Carbon Dioxide 27.0, Anion Gap 4 L, BUN 24 H, Creatinine 1.03, Estim Creat Clear Calc 69.52, Est GFR (MDRD) Af Amer 94, Est GFR (MDRD) Non-Af 78, BUN/Creatinine Ratio 23.3 H, Glucose 251 H, Calcium 8.9, Total Bilirubin 0.40, AST 22, ALT 25, Alkaline Phosphatase 50, Total Protein 6.5, Albumin 2.4 L, Globulin 4.1, Albumin/Globulin Ratio 0.6 L 07/30/20 06:41: POC Glucose 258 H Current Medications Acetaminophen (Acetaminophen 325 Mg Tablet) 650 mg PO Q6H PRN PRN PRN Reason: Pain Score 1-10/Temp > 100.7 F Last Admin: 07/29/20 20:59 Dose: 650 mg Documented by: Albuterol Sulfate (Albuterol 2.5 Mg/3 Ml Vial.Neb.) 2.5 mg INHALATION Q2H PRN PRN PRN Reason: Shortness of Breath/Wheezing Aspirin (Aspirin 81 Mg Tab.Chew) 81 mg PO DAILY@0800 [facility] Last Admin: 07/30/20 09:48 Dose: 81 mg Documented by: Atorvastatin Calcium (Atorvastatin Calcium 20 Mg Tablet) 20 mg PO QHS [facility] Last Admin: 07/29/20 20:51 Dose: 20 mg Documented by: Benzonatate (Benzonatate 100 Mg Capsule) 100 mg PO TID PRN PRN PRN Reason: COUGH Dexamethasone (Dexamethasone 4 Mg Tablet) 6 mg PO DAILY [facility] Last Admin: 07/30/20 09:46 Dose: 6 mg Documented by: Dextrose (Dextrose 50%-Water 25 Gm/50 Ml Disp.Syrin) 0 gm IV X1 PRN; Protocol PRN Reason: Hypoglycemia Enoxaparin Sodium (Enoxaparin 30 Mg/0.3 Ml Syringe) 30 mg SC BID [facility] Last Admin: 07/30/20 09:46 Dose: 30 mg Documented by: Fenofibrate (Fenofibrate 145 Mg Tablet) 145 mg PO DAILY [facility] Last Admin: 07/30/20 09:48 Dose: 145 mg Documented by: Glucagon (Glucagon 1 Mg/Ml Syringe) 1 mg IM .X1 PRN PRN Reason: Hypoglycemia Guaifenesin (Guaifenesin 1,200 Mg Tablet) 1,200 mg PO BID [facility] Last Admin: 07/30/20 09:48 Dose: 1,200 mg Documented by: Remdesivir 100 mg/ Sodium (Chloride) 250 mls @ 125 mls/hr IV Q24H [facility] Stop: 07/30/20 23:59 Last Infusion: 07/29/20 22:59 Dose: Infused Documented by: Insulin Human Lispro (Insulin Lispro 100 Unit/Ml Insuln.Pen) 0 unit SC ACHS [facility]; Protocol Last Admin: 07/30/20 06:41 Dose: 3 units Documented by: Lisinopril (Lisinopril 10 Mg Tablet) 10 mg PO DAILY [facility] Last Admin: 07/30/20 09:47 Dose: 10 mg Documented by: Loperamide HCl (Loperamide 2 Mg Capsule) 2 mg PO Q4H PRN PRN PRN Reason: Diarrhea Last Admin: 07/27/20 17:20 Dose: 2 mg Documented by: Loratadine (Loratadine 10 Mg Tablet) 10 mg PO DAILY [facility] Last Admin: 07/30/20 09:48 Dose: 10 mg Documented by: Melatonin (Melatonin 3 Mg Tablet) 3 mg PO QHS PRN PRN PRN Reason: INSOMNIA Last Admin: 07/29/20 20:59 Dose: 3 mg Documented by: Ondansetron HCl (Ondansetron 4 Mg/2 Ml Vial) 4 mg IV Q8H PRN PRN PRN Reason: NAUSEA/VOMITING Senna/Docusate Sodium (Senna/Docusate Sodium 1 Tablet) 2 tablet PO BID PRN PRN PRN Reason: Constipation Sertraline HCl (Sertraline 100 Mg Tablet) 150 mg PO DAILY [facility] Last Admin: 07/30/20 09:51 Dose: 150 mg Documented by: Sodium Chloride (0.9% Saline Lock 10 Ml Syringe) 10 - 40 ml IV UD PRN PRN Reason: SALINE FLUSH Discharge Activity: Return to Normal Activity Call your doctor if you observe: Fever of 101 or Higher, Shortness of breath, Dizziness, Fainting spells, Swelling in the ankles, Chest pain, Increased palpitations (irregular heartbeat) Home Medications: Medications to take at Discharge Aspirin [Aspirin, Baby] 81 mg PO DAILY@0800 07/27/20 Atorvastatin Calcium [Lipitor] 20 mg PO QHS 07/27/20 Cholecalciferol (Vitamin D3) [Vitamin D3] 125 mcg PO DAILY 07/27/20 Fenofibrate [Tricor] 145 mg PO DAILY 07/27/20 Fexofenadine HCl [Hazel Allergy] 180 mg PO DAILY 07/27/20 Fluticasone Propionate [Flovent Diskus] 2 puff INHALATION BID 07/27/20 Guaifenesin [Mucinex] 1,200 mg PO BID 07/27/20 Lisinopril [Zestril] 10 mg PO DAILY 07/27/20 Metformin HCl 1,000 mg PO BID 07/27/20 Sertraline HCl [Zoloft] 150 mg PO DAILY 07/27/20 Apixaban [Eliquis] 2.5 mg PO BID #28 tab 07/30/20 Dexamethasone 6 mg PO DAILY #0 07/30/20 Following Prescriptions Were Given to Patient: Apixaban [Eliquis] 2.5 mg PO BID #28 tab Transmission Status: Received by [facility] Primary Care Physician: Sebastian Del Rio MD [Primary Care Provider] - Please follow up with your Primary Care Physician in: 3-5 days Patient Instructions: Coronavirus Disease 2019 (COVID-19): Overview, Coronavirus Disease 2019 (COVID-19): Caring for Yourself or Others Disposition: Home Minutes spent on discharge:: 35 Patient Condition:: Stable Medical Necessity - Tobacco Use Smoking Status: Former smoker Meaningful Use Info Meaningful Use Diagnoses (Choose all that apply): None applicable Inpatient E&M: 94612 Disch Hosp
[2020-07-30 10:02] VITALS: O2SAT 84
[2020-07-30 14:16] LABS: Bedside Glucose 362 mg/dL (70-110)
--- NOTE | 2020-08-01 15:07 | CASEMGMT ---
KEVIN CM DC PHONE CALL DC DATE: 07/30/20 DC Disposition: Home with home oxygen through [facility] Diagnosis on Discharge: COVID-19 Attempted call to patient's phone. No answer and no messaging with name identifier. Carl MILLAN RN ACM
== END 2020-07-30 13:35 | disposition home or self-care (01) | DRG 177 ==
LOC: ED 01:57 → ICU 02:26 → MS2 07-28 16:49
PROVIDERS: Admitting Provider Hospitalist; Emergency Provider Emergency Medicine; PCP Family Medicine; Visit Provider Family Medicine
DX: U07.1 COVID-19 (principal); J12.82 Pneumonia due to coronavirus disease 2019; J44.0 Chronic obstructive pulmonary disease with (acute) lower respiratory infection; E87.1 Hypo-osmolality and hyponatremia; E78.00 Pure hypercholesterolemia, unspecified; I10 Essential (primary) hypertension; Z96.649 Presence of unspecified artificial hip joint; Z85.72 Personal history of non-Hodgkin lymphomas; Z87.891 Personal history of nicotine dependence; Z79.51 Long term (current) use of inhaled steroids; E78.5 Hyperlipidemia, unspecified; F32.9 Major depressive disorder, single episode, unspecified; F41.9 Anxiety disorder, unspecified; R09.02 Hypoxemia; R19.7 Diarrhea, unspecified; E11.9 Type 2 diabetes mellitus without complications
CPT/HCPCS: 36415; 71045; 71275; 80053; 82962; 83605; 84145; 84484; 85025; 85379; 87040; 87804; 93005; 94667; 99251; 99283; J7050; Q9967; A4216; G0463